=== PATIENT | female | born 1960 | race Caucasian/White ===

== ENCOUNTER → 2018-08-25 15:56 | Outpatient (REF) | payer OTHER, SELFPAY ==
[2018-08-25 19:43] LABS: Basophils # 0.1 K/mm3 (0-0.2); Basophils % 0.7 % (0.1-2.0); Eosinophils # 0.4 K/mm3 (0.0-0.4); Eosinophils % 4.2 % (0.1-12.0); Hematocrit 42.7 % (37.0-47.0); Lymphocytes # 2.7 K/mm3 (0.7-4.5); Mean Corpuscular HGB Conc 32.8 g/dL (31.8-35.4); Mean Corpuscular Hemoglobin 31.1 pg (27.0-31.2); Mean Corpuscular Volume 94.8 fl (81-99); Mean Platelet Volume 8.6 fl (7.4-10.4); Monocytes # 0.4 K/mm3 (0.1-1.0); Monocytes % 4.4 % (1.7-9.3); Neutrophils % 58.7 % (37.0-80.0); Platelet Count 273 K/mm3 (142-424); Red Cell Distribution Width 12.7 % (11.5-17.5); White Blood Count 8.5 K/mm3 (4.8-10.8)
[2018-08-25 20:09] LABS: Alanine Aminotransferase 30 U/L (12-78); Albumin Level 3.7 gm/dL (3.4-5.0); Alkaline Phosphatase 123 U/L (46-116); Anion Gap 9.8 mEq/L (5-15); Aspartate Amino Transferase 19 U/L (15-37); Bilirubin,Total 0.2 mg/dL (0.2-1.0); Blood Urea Nitrogen 9 mg/dL (7-18); Calcium 8.9 mg/dL (8.5-10.1); Carbon Dioxide 32 mmol/L (21.0-32.0); Chloride 104 mmol/L (98-107); Chol/HDL Ratio 8.9 (1-3.5); Cholesterol 303 mg/dL (140-200); Estimated Glomerular Filt Rate 87 ml/min (>60); GFR (African American) 105 ML/MIN (>60); Globulin 3.7 gm/dl (1.3-3.2); Glucose 106 mg/dL (74-106); HDL Cholesterol 34 mg/dL (29-89); Potassium 4.8 mmoL/L (3.5-5.1); Sodium 141 mmol/L (136-145); T4 (Thyroxine) 8.2 ug/dl (4.7-13.3); Thyroid Stimulating Hormone 1.72 uIU/ml (0.358-3.740); Total Protein,Serum 7.4 gm/dL (6.4-8.2)
[2018-08-25 20:10] LABS: Triglycerides 1050 mg/dL (30-200)
[2018-08-27 10:15] LABS: Vitamin D 25 Hydroxy 20.3 ng/mL (30.0-100.0)
== END ==
LOC: LAB 15:56
PROVIDERS: Visit Provider Physician Assistant
DX: R63.5 Abnormal weight gain (principal); R03.0 Elevated blood-pressure reading, without diagnosis of hypertension; F41.8 Other specified anxiety disorders; E55.9 Vitamin D deficiency, unspecified
CPT/HCPCS: 80053; 80061; 82652; 84436; 84443; 85025

== ENCOUNTER → 2020-05-31 14:21 | Outpatient (CLI) | payer OTHER, SELFPAY ==
[2020-05-31 14:45] LABS: C-Reactive Protein 8.5 mg/L (0-4)
[2020-05-31 15:10] LABS: Erythrocyte Sedimentation Rate 46 mm/hr (0-30)
== END ==
PROVIDERS: Visit Provider Physician Assistant
DX: M25.512 Pain in left shoulder (principal); R60.0 Localized edema
CPT/HCPCS: 85651; 86140

== ENCOUNTER → 2020-06-09 15:06 | Outpatient (CLI) | payer OTHER, SELFPAY ==
[2020-06-11 09:38] LABS: RA Latex Turbid. >650.0 IU/mL (0.0-13.9)
[2020-06-12 13:11] LABS: Anti-Centromere B Antibodies <0.2 AI (0.0-0.9); Anti-Jo-1 <0.2 AI (0.0-0.9); Anti-Smith Antibody <0.2 AI (0.0-0.9); Antichromatin Antibodies <0.2 AI (0.0-0.9); Antiscleroderma-70 Antibodies <0.2 AI (0.0-0.9); RNP Antibodies <0.2 AI (0.0-0.9); Sjogren's Anti-SS-A <0.2 AI (0.0-0.9); Sjogren's Anti-SS-B <0.2 AI (0.0-0.9)
[2020-06-12 14:39] LABS: Anti-DNA (DS) Ab Qn <1 IU/mL (0-9)
[2020-06-14 08:35] LABS: Anti-Cyclic Citrullinated Pept 57 units (0-19)
== END ==
PROVIDERS: Visit Provider Physician Assistant
DX: M25.50 Pain in unspecified joint (principal)
CPT/HCPCS: 86200; 86225; 86235; 86431

== ENCOUNTER 2021-02-11 04:43 | Emergency (ER) | payer OTHER, SELFPAY ==
[2021-02-11 04:54] VITALS: BP 174/85; PULSE 94; RESP 20; TEMP 37.2; O2SAT 96; BMI 28.3
--- NOTE | 2021-02-11 05:00 | CT_ITS ---
PROCEDURE: CT ABDOMEN PELVIS W CON CLINICAL INDICATION: Abdominal pain Abdominal pain with nausea and vomiting and diarrhea COMPARISON: CT ABDPELW/O CT ABD PELVIS W/O CONTRAST from 01/19/2017 TECHNIQUE: IV Contrast: 75ML Isovue 370 Oral Contrast None Axial images obtained with sagittal and coronal reformats. All CT scans at the facility use one or more dose reduction, viz: automated exposure control, ma/kV adjustment per patient size (including targeted exams where dose is matched to indication, i.e. head), or iterative reconstruction technique. FINDINGS: LOWER THORAX: There is a 6 mm subpleural cavitation in the right lower lobe posteriorly. Coronary artery calcification noted. ABDOMEN & PELVIS: Liver has an unremarkable appearance. There is a small gallstone. The spleen, adrenal glands, and pancreas have an unremarkable appearance. There are few small periportal lymph nodes some of which contain punctate calcification. Unremarkable appearing kidneys. There is mild nonspecific gastric wall thickening possibly due to nondistention. There is mild dilatation of the cecum which is fluid-filled. The more distal colon is collapsed. The colonic margin at the cecum and proximal ascending colon is somewhat indistinct. Multiple unopacified bowel loops in the abdomen or pelvis which could obscure or mimic pathology. If symptoms persist, consider repeat exam with IV and oral contrast.. The colonic diverticulosis is noted without evidence of diverticulitis. Small bowel gas pattern is nonspecific with nondistended fluid-filled loops of small bowel. No intestinal obstruction or free air. The appendix is not clearly delineated. No acute bony findings. IMPRESSION: 1. Cholelithiasis. 2. Small cavitating lesion right lower lobe posteriorly. Consider 3 month follow-up to confirm stability. 3. Mildly dilated fluid-filled cecum with indistinct colonic margin of the cecum and ascending colon raising the possibility of colonic obstruction due to colitis or tumor or early cecal volvulus. Repeat exam with both IV and oral contrast may provide further evaluation. Dictated by: Cash Heredia MD 02/11/2021 09:17 Cash Heredia MD in [place] 02/11/2021 09:17
[2021-02-11 05:12] LABS: Basophils % 0.3 % (0.1-2.0); Eosinophils # 0.2 K/mm3 (0.0-0.4); Eosinophils % 1.6 % (0.1-12.0); Hematocrit 45.6 % (37.0-47.0); Hemoglobin 14.4 g/dL (12.2-16.2); Lymphocytes # 0.6 K/mm3 (0.7-4.5); Lymphocytes % 5.2 % (10-50); Mean Corpuscular HGB Conc 31.7 g/dL (31.8-35.4); Mean Corpuscular Hemoglobin 29.7 pg (27.0-31.2); Mean Corpuscular Volume 93.7 fl (81-99); Mean Platelet Volume 9.7 fl (7.4-10.4); Monocytes # 0.3 K/mm3 (0.1-1.0); Monocytes % 2.7 % (1.7-9.3); Neutrophils # 10.6 K/mm3 (1.8-7.8); Neutrophils % 90.2 % (37.0-80.0); Platelet Count 188 K/mm3 (142-424); Red Blood Count 4.87 M/mm3 (4.20-5.40); Red Cell Distribution Width 13.2 % (11.5-17.5); White Blood Count 11.7 K/mm3 (4.8-10.8)
[2021-02-11 05:19] LABS: MANUAL DIFFERENTIAL MANUAL DIFFERENTIAL (MANUAL DIFF)
[2021-02-11 05:28] LABS: Alanine Aminotransferase 23 U/L (12-78); Albumin Level 4.5 g/dl (3.5-5.0); Albumin/Globulin Ratio 1.3 (1.1-1.8); Alkaline Phosphatase 126 U/L (38-126); Amylase 47 U/L (30-110); Anion Gap 12.2 mEq/L (5-15); Aspartate Amino Transferase 34 U/L (14-36); Bilirubin,Total 0.6 mg/dl (0.2-1.3); Blood Urea Nitrogen 19 mg/dl (7-17); Calcium 9.4 mg/dl (8.4-10.2); Carbon Dioxide 27 mmol/L (22.0-30.0); Chloride 105 mmol/L (98-107); Creatinine Clearance Estimated 100 mL/min (50-200); Estimated Glomerular Filt Rate 86 ml/min (>60); GFR (African American) 104 ML/MIN (>60); Globulin 3.5 g/dL (1.3-3.2); Glucose 243 mg/dl (74-100); Lipase 33 U/L (23-300); Potassium 4.2 mmoL/L (3.5-5.1); Sodium 140 mmol/L (136-145)
[2021-02-11 05:48] LABS: Procalcitonin 0.063 ng/mL (0.0-2.0); Troponin I < 0.01 ng/ml (0.00-0.034)
[2021-02-11 06:07] LABS: Eosinophils % 1 % (0-3); Hypochromasia 1+; Lymphocytes % 3 % (10-50); Monocytes % 1 % (2-9); Neutrophils % 90 % (42-76); Platelet Estimate Normal; Total Cells Counted 100
[2021-02-11 06:11] LABS: Erythrocyte Sedimentation Rate 20 mm/hr (0-30)
[2021-02-11 06:17] LABS: Adenovirus F 40/41, stool Not Detected (NotDetected); Appearance,Urine CLEAR (Clear); Astrovirus Not Detected (NotDetected); Bilirubin,Urine Negative (Negative); Blood, Urine TRACE-L (Negative); Campylobacter Not Detected (NotDetected); Clostridium Difficile A/B, PCR Not Detected (NotDetected); Color,Urine YELLOW (Yellow); Cryptosporidium Not Detected (NotDetected); Cyclospora Cayetanesis Not Detected (NotDetected); Entamoeba histolytica Not Detected (NotDetected); Enteroaggregative E coli Not Detected (NotDetected); Enteropathogenic E coli Not Detected (NotDetected); Enterotoxigenic E coli Not Detected (NotDetected); Giardia lamblia Not Detected (NotDetected); Glucose,Urine (UA) Negative (Negative); Ketones,Urine Negative (Negative); Leukocyte Esterase,Urine Negative (Negative); Microscopic, Urine URINE MICROSCOPIC (MICROSCOPIC); Nitrate,Urine Negative (Negative); PH,Urine 5.5 (5.0-8.5); Plesimonas Shigalloides, PCR Not Detected (NotDetected); Protein,Urine Negative (Negative); Rotavirus A Not Detected (NotDetected); Salmonella, PCR Not Detected (NotDetected); Sapovirus Not Detected (NotDetected); Shiga-like toxin E coli Not Detected (NotDetected); Shigella Enterovasive E coli Not Detected (NotDetected); Specific Gravity, Urine 1.015 (1.005-1.030); Urobilinogen,Urine 0.2 EU/dl (0.2); Vibrio Cholerae Not Detected (NotDetected); Vibrio, PCR Not Detected (NotDetected); Yersinia Entercolitica, PCR Not Detected (NotDetected)
[2021-02-11 06:27] LABS: WBC,Urine Occasional #/hpf (0-3)
[2021-02-11 06:28] LABS: Squamous Epithelial Cell,Urine Occasional #/hpf (0-5)
[2021-02-11 07:01] VITALS: BP 129/64; PULSE 88; RESP 17; O2SAT 93
--- NOTE | 2021-02-11 07:02 | HMH.EDNVD ---
ED Disposition Clinical Impression: Colitis Disposition: Home, Self-Care Condition on Discharge: Good Instructions: DI for Diarrhea and Traveler's Diarrhea -- Adult Additional Instructions: fluids and recheck with pcp and return to ed if needed Prescriptions: metroNIDAZOLE [metroNIDAZOLE 500mg Tablet] 500 mg PO TID #30 tab Transmission Status: Pending to [facility] Azithromycin [Zithromax 250mg tab] 250 mg PO DIRECTED #6 tab Transmission Status: Pending to [facility] ondansetron HCL [Zofran 4mg Tab] 4 mg PO TID #30 tab Transmission Status: Pending to [facility] Referrals: Marta Schmitz PA [Primary Care Provider] - - Critical Care Critical Care Time: No Attestation: On 02/11/21, the high probability of a clinically significant, sudden or life threatening deterioration of the following system(s) required my full and direct attention, intervention and personal management. The time I documented below is in addition to time spent performing reported procedures but includes the following listed in this critical care notation. Medical Decision Making - Medical Records Medical records reviewed: Yes: I reviewed the patient's medical records. - Chris Inquiry Pt receiving controlled substance: No Vital Signs: 02/11/21 04:54 Temperature 98.9 F Temperature Source Oral Pulse Rate [Right Brachial] 94 H Respiratory Rate 20 Blood Pressure [Right Arm] 174/85 H Blood Pressure Mean [Right Arm] 114 Blood Pressure Source [Right Arm] Automatic Cuff 02 Sat by Pulse Oximetry 96 Oxygen Delivery Method Room Air - Lab Data Lab results reviewed: Yes: I reviewed the patient's lab results. Lab Results 02/11/21 05:00: WBC 11.7 H, RBC 4.87, Hgb 14.4, Hct 45.6, MCV 93.7, MCH 29.7, MCHC 31.7 L, RDW 13.2, Plt Count 188, MPV 9.7, Neut % (Auto) 90.2 H, Lymph % (Auto) 5.2 L, [place] % (Auto) 2.7, Eos % (Auto) 1.6, Baso % (Auto) 0.3, Neut # (Auto) 10.6 H, Lymph # (Auto) 0.6 L, [place] # (Auto) 0.3, Eos # (Auto) 0.2, Baso # (Auto) 0.0, Total Counted 100, Neutrophils % (Manual) 90 H, Band Neutrophils % 5.0, Lymphocytes % (Manual) 3 L, Monocytes % (Manual) 1 L, Eosinophils % (Manual) 1, Platelet Estimate Normal, Hypochromasia 1+, ESR 20 02/11/21 05:00: Sodium 140, Potassium 4.2, Chloride 105, Carbon Dioxide 27, Anion Gap 12.2, BUN 19 H, Creatinine 0.70, Estimated Creat Clear 100, Estimated GFR 86, Est GFR ( Amer) 104, Glucose 243 H, Calcium 9.4, Total Bilirubin 0.6, AST 34, ALT 23, Alkaline Phosphatase 126, Troponin I < 0.01, C-Reactive Protein 17.0 H, Total Protein 8.0, Albumin 4.5, Globulin 3.5 H, Albumin/Globulin Ratio 1.3, Amylase 47, Lipase 33 02/11/21 05:00: Procalcitonin 0.063 02/11/21 06:07: Urine Color Yellow, Urine Appearance Clear, Urine pH 5.5, Ur Specific [place] 1.015, Urine Protein Negative, Urine Glucose (UA) Negative, Urine Ketones Negative, Urine Blood Trace-l, Urine Nitrate Negative, Urine Bilirubin Negative, Urine Urobilinogen 0.2, Ur Leukocyte Esterase Negative, Urine RBC None, Urine WBC Occasional, Ur Squamous Epith Cells Occasional, Urine Bacteria None Result diagrams: 02/11/21 05:00 02/11/21 05:00 Orders (Tests/Meds): ED MEDICATIONS Generic Name Dose Route Start Last Admin Trade Name Freq PRN Reason Stop Dose Admin Sodium Chloride 1,000 mls @ 999 mls/hr 02/11/21 05:15 02/11/21 05:04 Sod Chlor 0.9% 1000ml Bag IV 02/11/21 06:15 999 mls/hr .Q1H1M ISAEL Administration Sodium Chloride 1,000 mls @ 999 mls/hr 02/11/21 06:15 02/11/21 06:06 Sod Chlor 0.9% 1000ml Bag IV 02/11/21 07:15 999 mls/hr .Q1H1M ISAEL Administration Discontinued Medications Generic Name Dose Route Start Last Admin Trade Name Freq PRN Reason Stop Dose Admin Iopamidol 75 ml 02/11/21 06:01 02/11/21 06:02 Iopamidol-370 (76%);100ml Bottle IV 02/11/21 06:02 75 ml ONCE ONE Administration Ondansetron HCl 4 mg 02/11/21 05:03 02/11/21 05:04 Ondansetron 4mg/2ml Via
[2021-02-11 07:47] VITALS: BP 126/60; PULSE 80; RESP 19; TEMP 37.2; O2SAT 98
[2021-02-11 08:22] LABS: Norovirus Detected (NotDetected)
--- NOTE | 2021-02-11 08:58 | PC.NURSE ---
Called pt with results of stool panel.
== END 2021-02-11 07:49 | disposition home or self-care (01) ==
PROVIDERS: Emergency Provider Emergency Medicine; PCP Physician Assistant
DX: K52.9 Noninfective gastroenteritis and colitis, unspecified (principal); M06.9 Rheumatoid arthritis, unspecified; R01.1 Cardiac murmur, unspecified; E78.5 Hyperlipidemia, unspecified; F17.210 Nicotine dependence, cigarettes, uncomplicated; Z79.899 Other long term (current) drug therapy
CPT/HCPCS: 74177; 80053; 81001; 82150; 83690; 84145; 84484; 85007; 85025; 85651; 86140; 87507; 96365; 96366; 96375; 99283; J2405; Q9967

== ENCOUNTER 2021-07-05 17:19 | Emergency (ER) | payer OTHER, SELFPAY ==
[2021-07-05 20:19] VITALS: BP 145/73; PULSE 81; RESP 18; TEMP 36.8; O2SAT 97; BMI 25.7
--- NOTE | 2021-07-05 20:27 | HMH.EDUTC ---
[facility] [place] Disposition Clinical Impression: Sciatica without back pain Qualifiers: Laterality: left Qualified Code(s): M54.32 - Sciatica, left side Disposition: Home, Self-Care Condition on Discharge: Good Instructions: Sciatica, DI for Sciatica, Methocarbamol Additional Instructions: *Ibuprofen as directed on package with meal as needed for pain/inflammation if your doctor has told you that you can take it *Not additional anti-inflammatory like motrin, aleve, advil with the above amount of ibuprofen. You can still take Tylenol every 4 hours as needed if you need something else for pain *Ice 20 minutes every 2 hours for the first 48 hours after the initial injury followed by moist heat every 20 minutes 3-4 times a day to affected area *Muscle relaxer as prescribed as needed for muscle spasms but remember, it WILL cause drowsiness You cannot take it and drive, operate machinery or care for small children. *Keep this area active, no movement leads to more stiffness, However take it easy and avoid heavy lifting pushing or pulling *Follow up with you family doctor if no improvement for further treatment Prescriptions: methocarbamoL [Methocarbamol] 500 mg PO BID PRN #10 tab PRN Reason: Muscle Spasm Transmission Status: Received by [facility] Referrals: Marta Schmitz PA [Primary Care Provider] - As needed Forms: Work/School Release Time of Disposition: 20:55 Medical Decision Making - Chris Inquiry Pt receiving controlled substance: No Chris was queried for this patient: No Vital Signs: 07/05/21 20:19 Temperature 98.3 F Temperature Source Oral Pulse Rate [Right] 81 Respiratory Rate 18 Blood Pressure [Right Arm] 145/73 H Blood Pressure Mean [Right Arm] 97 02 Sat by Pulse Oximetry 97 Oxygen Delivery Method Room Air Orders (Tests/Meds): ED MEDICATIONS Discontinued Medications Generic Name Dose Route Start Last Admin Trade Name Freq PRN Reason Stop Dose Admin Methylprednisolone Sodium Succinate 125 mg 07/05/21 20:35 07/05/21 20:39 Methylprednisolone Sod Succ 125mg Vial IM 07/05/21 20:36 125 mg ONCE ONE Administration Medical Decision Narrative: Medication discussed with pharmacy [facility] [place] HPI - General Stated complaint: Pain L leg Time Seen by Provider: 07/05/21 20:27 Mode of Arrival: Family Vehicle Source of Information: Patient Limitations: No Limitations Description of Symptoms (Recalled from Triage Doc. by RN): Patient left hip pain this AM that radiates down her left leg. Patient denies any injury. HEENT Symptoms (Recalled from RN notes): No Resp Symptoms (Recalled from RN notes): No Skin Symptoms (Recalled from RN notes): No MS Symptoms (Recalled from RN notes): Yes Functional Status (Recalled from RN notes): na - History of Present Illness Provider Complaint: Patient state that she woke up this morning with pain in her left buttock area that is radiating down leg State that feels like it is a toothache like pain State that pain in buttock area is worse when she sits or lays on that side Denies falling and denies known injury - Related Data Previous Rx's Medication Instructions Recorded ondansetron HCL [Zofran 4mg Tab] 4 mg PO TID #30 tab 02/11/21 folic acid 400 mcg tablet 0.4 mg PO DAILY #90 tab 05/21/21 leflunomide 10 mg tablet 10 mg PO DAILY #90 tab 05/21/21 meloxicam 7.5 mg tablet 7.5 mg PO DAILY #30 tab 05/21/21 methylprednisolone 4 mg tablets in 4 mg PO PER PKG DIR 6 Days #21 tab 05/21/21 a dose pack methocarbamoL [Methocarbamol] 500 mg PO BID PRN #10 tab 07/05/21 Allergies Allergy/AdvReac Type Severity Reaction Status Date / Time No Known Allergies Allergy Verified 05/21/21 09:55 - Worker's Comp Is this a Worker's Comp case?: No Is this an H Worker's Comp?: No Is this a [place] Worker's Comp?: No [facility] History - Hepatitis A Screen Drug use history?: No High risk sexual behaviors?: No History of sexually transmitted infection?: No Cur
[2021-07-05 20:59] VITALS: BP 123/74; PULSE 78; RESP 16; TEMP 36.6; O2SAT 98
== END 2021-07-05 21:01 | disposition home or self-care (01) ==
PROVIDERS: Emergency Provider Nurse Practitioner; PCP Physician Assistant
DX: M54.32 Sciatica, left side (principal); E78.5 Hyperlipidemia, unspecified; F33.1 Major depressive disorder, recurrent, moderate; F17.210 Nicotine dependence, cigarettes, uncomplicated; Z79.899 Other long term (current) drug therapy
CPT/HCPCS: 96372; 99202; G0463

== ENCOUNTER 2021-10-07 23:08 | Emergency (ER) | payer OTHER, SELFPAY ==
[2021-10-07 23:10] VITALS: BP 171/90; PULSE 89; RESP 18; TEMP 36.9; O2SAT 98; BMI 25.8
--- NOTE | 2021-10-07 23:11 | ECG_ITS ---
APPROVED REPORT Exam: Resting ECG HR:87 bpm ECG Measurements Heart Rate 87 AXES CO 136 P 72 QRSd 66 QRS 73 QT 364 T 79 QTc 438 Conclusion Normal sinus rhythm Normal ECG Electronically signed by : Reginaldo Ramos MD 10/08/2021 14:20:44
[2021-10-07 23:27] VITALS: BMI 28.3
--- NOTE | 2021-10-07 23:28 | XR_ITS ---
PROCEDURE INFORMATION: Exam: XR Left Shoulder Exam date and time: 10/07/2021 11:28 PM Age: 61 years old Clinical indication: Pain; Shoulder; Left; Additional info: Shoulder pain left no trauma TECHNIQUE: Imaging protocol: XR Left shoulder. Views: 2 or more views. COMPARISON: CR CXR CHEST(2 VIEWS-NOT PORTABLE) 02/16/2017 6:21 PM FINDINGS: Bones/joints: Normal. Soft tissues: Normal. IMPRESSION: No acute findings.
--- NOTE | 2021-10-07 23:28 | CT_ITS ---
PROCEDURE INFORMATION: Exam: CT Thoracic Spine Without Contrast Exam date and time: 10/07/2021 11:28 PM Age: 61 years old Clinical indication: Pain in thoracic spine; With radiculopathy; Patient HX: Neck and upper back pain and left shoulder pain no trauma; Additional info: Neck pain TECHNIQUE: Imaging protocol: Computed tomography images of the thoracic spine without contrast. Radiation optimization: All CT scans at this facility use at least one of these dose optimization techniques: automated exposure control; mA and/or kV adjustment per patient size (includes targeted exams where dose is matched to clinical indication); or iterative reconstruction. COMPARISON: CT CERVICAL SPINE WO CON 10/07/2021 11:56 PM FINDINGS: Vertebrae: No acute fracture. Normal alignment. Heart: Cardiomegaly with coronary artery and valvular calcifications. Lymph nodes: Calcified lymph nodes in the mediastinum and prashanth may be due to prior granulomatous disease or treated lymphoma. IMPRESSION: No acute spinal abnormality. Cardiomegaly and evidence of prior granulomatous disease.
--- NOTE | 2021-10-07 23:28 | CT_ITS ---
PROCEDURE INFORMATION: Exam: CT Cervical Spine Without Contrast Exam date and time: 10/07/2021 11:28 PM Age: 61 years old Clinical indication: Patient HX: Neck pain and left shoulder pain no known trauma TECHNIQUE: Imaging protocol: Computed tomography images of the cervical spine without contrast. Radiation optimization: All CT scans at this facility use at least one of these dose optimization techniques: automated exposure control; mA and/or kV adjustment per patient size (includes targeted exams where dose is matched to clinical indication); or iterative reconstruction. COMPARISON: US ARTERIAL CAROTID 02/26/2017 9:46 AM FINDINGS: Vertebrae: Normal alignment. No acute fractures. Soft tissues: Unremarkable. Lungs: Lung apices are normal. Other findings: There are mild degenerative changes present with uncovertebral joint hypertrophy causing moderate to severe left neural foraminal narrowing C4-C5 and C5-C6. IMPRESSION: Degenerative changes causing left neural foraminal narrowing at C4-C5 and C5-C6.
[2021-10-07 23:30] VITALS: BP 145/73; PULSE 85; O2SAT 97
[2021-10-07 23:38] LABS: Basophils # 0.1 K/mm3 (0-0.2); Basophils % 1.1 % (0.1-2.0); Eosinophils # 0.4 K/mm3 (0.0-0.4); Eosinophils % 5.5 % (0.1-12.0); Hematocrit 37.6 % (37.0-47.0); Lymphocytes # 2.3 K/mm3 (0.7-4.5); Lymphocytes % 30.2 % (10-50); Mean Corpuscular HGB Conc 34.6 g/dL (31.8-35.4); Mean Corpuscular Hemoglobin 32.1 pg (27.0-31.2); Mean Corpuscular Volume 92.8 fl (81-99); Mean Platelet Volume 8.8 fl (7.4-10.4); Monocytes # 0.3 K/mm3 (0.1-1.0); Monocytes % 4.4 % (1.7-9.3); Neutrophils # 4.4 K/mm3 (1.8-7.8); Neutrophils % 58.9 % (37.0-80.0); Platelet Count 257 K/mm3 (142-424); Red Blood Count 4.05 M/mm3 (4.20-5.40); White Blood Count 7.4 K/mm3 (4.8-10.8)
[2021-10-07 23:48] LABS: Chloride 102 mmol/L (98-107); Potassium 3.9 mmoL/L (3.5-5.1); Sodium 137 mmol/L (136-145)
[2021-10-07 23:50] LABS: Alanine Aminotransferase 37 U/L (12-78); Blood Urea Nitrogen 16 mg/dl (7-17); Creatinine Clearance Estimated 116 mL/min (50-200); Estimated Glomerular Filt Rate 102 ml/min (>60); GFR (African American) 124 ML/MIN (>60)
[2021-10-07 23:51] LABS: Albumin/Globulin Ratio 1.3 (1.1-1.8); Alkaline Phosphatase 171 U/L (38-126); Anion Gap 7.9 mEq/L (5-15); Aspartate Amino Transferase 47 U/L (14-36); Bilirubin,Total 0.2 mg/dl (0.2-1.3); Calcium 9.1 mg/dl (8.4-10.2); Carbon Dioxide 31 mmol/L (22.0-30.0); Glucose 269 mg/dl (74-100)
[2021-10-07 23:57] LABS: C-Reactive Protein 35.6 mg/L (0-4)
[2021-10-07 23:59] LABS: Troponin I < 0.01 ng/ml (0.00-0.034)
[2021-10-08 00:02] LABS: Procalcitonin 0.053 ng/mL (0.0-2.0)
[2021-10-08 00:05] LABS: Erythrocyte Sedimentation Rate 81 mm/hr (0-30)
[2021-10-08 00:30] VITALS: BP 127/88; PULSE 74; O2SAT 96
[2021-10-08 00:58] LABS: Hemoglobin A1C 8.9 % (4.0-6.0)
[2021-10-08 01:00] VITALS: BP 155/76; PULSE 70; O2SAT 95
[2021-10-08 01:30] VITALS: BP 143/77; PULSE 73; O2SAT 96
[2021-10-08 02:01] VITALS: BP 131/83; PULSE 69; O2SAT 99
--- NOTE | 2021-10-08 02:28 | HMH.EDGENADL ---
ED Disposition Clinical Impression: Cervical disc disease, Coronary artery calcification seen on CAT scan, Elevated hemoglobin A1c, Tobacco use, Overweight (BMI 25.0-29.9) Shoulder pain, left Qualifiers: Chronicity: acute Qualified Code(s): M25.512 - Pain in left shoulder Rheumatoid arthritis Qualifiers: Rheumatoid arthritis location: unspecified site Rheumatoid factor presence: unspecified presence Qualified Code(s): M06.9 - Rheumatoid arthritis, unspecified Disposition: Home, Self-Care Condition on Discharge: Fair Instructions: DI for Acute Pain -- Adult Additional Instructions: see pcp today Referrals: Marta Schmitz PA [Primary Care Provider] - - Critical Care Critical Care Time: No Attestation: On 10/07/21, the high probability of a clinically significant, sudden or life threatening deterioration of the following system(s) required my full and direct attention, intervention and personal management. The time I documented below is in addition to time spent performing reported procedures but includes the following listed in this critical care notation. Medical Decision Making - Medical Records Medical records reviewed: Yes: I reviewed the patient's medical records. - Chris Inquiry Pt receiving controlled substance: No Vital Signs: 10/07/21 23:10 10/07/21 23:30 10/08/21 00:30 Temperature 98.4 F Temperature Source Oral Pulse Rate 85 74 Pulse Rate [Right] 89 Respiratory Rate 18 Blood Pressure 145/73 H 127/88 Blood Pressure [Right Arm] 171/90 H Blood Pressure Mean 97 103 Blood Pressure Mean [Right Arm] 117 02 Sat by Pulse Oximetry 98 97 96 Oxygen Delivery Method Room Air Room Air Room Air 10/08/21 01:00 10/08/21 01:30 10/08/21 02:01 Temperature Temperature Source Pulse Rate 70 73 69 Pulse Rate [Right] Respiratory Rate Blood Pressure 155/76 H 143/77 H 131/83 Blood Pressure [Right Arm] Blood Pressure Mean 94 88 94 Blood Pressure Mean [Right Arm] 02 Sat by Pulse Oximetry 95 96 99 Oxygen Delivery Method Room Air Room Air Room Air - Lab Data Lab results reviewed: Yes: I reviewed the patient's lab results. Lab Results 10/07/21 23:27: WBC 7.4, RBC 4.05 L, Hgb 13.0, Hct 37.6, MCV 92.8, MCH 32.1 H, MCHC 34.6, RDW 14.0, Plt Count 257, MPV 8.8, Neut % (Auto) 58.9, Lymph % (Auto) 30.2, [place] % (Auto) 4.4, Eos % (Auto) 5.5, Baso % (Auto) 1.1, Neut # (Auto) 4.4, Lymph # (Auto) 2.3, [place] # (Auto) 0.3, Eos # (Auto) 0.4, Baso # (Auto) 0.1, ESR 81 H 10/07/21 23:27: Sodium 137, Potassium 3.9, Chloride 102, Carbon Dioxide 31 H, Anion Gap 7.9, BUN 16, Creatinine 0.60, Estimated Creat Clear 116, Estimated GFR 102, Est GFR ( Amer) 124, Glucose 269 H, Calcium 9.1, Total Bilirubin 0.2, AST 47 H, ALT 37, Alkaline Phosphatase 171 H, C-Reactive Protein 35.6 H, Total Protein 7.0, Albumin 4.0, Globulin 3.0, Albumin/Globulin Ratio 1.3, Procalcitonin 0.053 10/07/21 23:27: Troponin I < 0.01 10/07/21 23:27: Hemoglobin A1c 8.9 H Result diagrams: 10/07/21 23:27 10/07/21 23:27 Orders (Tests/Meds): ED MEDICATIONS Generic Name Dose Route Start Last Admin Trade Name Freq PRN Reason Stop Dose Admin Sodium Chloride 1,000 mls @ 999 mls/hr 10/07/21 23:45 10/07/21 23:45 Sod Chlor 0.9% 1000ml Bag IV 10/08/21 00:45 999 mls/hr .Q1H1M ISAEL Administration Discontinued Medications Generic Name Dose Route Start Last Admin Trade Name Freq PRN Reason Stop Dose Admin Acetaminophen/Codeine Phosphate 1 eliseo 10/08/21 02:50 10/08/21 02:51 Acetaminophen 300mg W/Codeine 30mg Take Home Pack (6) PO 10/08/21 02:51 1 eliseo ONCE ONE Administration Ketorolac Tromethamine 30 mg 10/07/21 23:34 10/07/21 23:45 Ketorolac 30mg/Ml Vial IV 10/07/21 23:35 30 mg ONCE ONE Administration Methylprednisolone Sodium Succinate 125 mg 10/07/21 23:34 10/07/21 23:45 Methylprednisolone Sod Succ 125mg Vial IV 10/07/21 23:35 125 mg ONCE ONE Administration ORDERS
--- NOTE | 2021-10-08 02:37 | XR_ITS ---
PROCEDURE INFORMATION: Exam: XR Chest Exam date and time: 10/08/2021 2:37 AM Age: 61 years old Clinical indication: Other: Changes seen on CT t spine; Additional info: Changes on tspine CT TECHNIQUE: Imaging protocol: XR of the chest. Views: 2 views. COMPARISON: CR CXR CHEST(2 VIEWS-NOT PORTABLE) 02/16/2017 6:21 PM FINDINGS: Lungs: Unremarkable. No consolidation. Pleural spaces: Unremarkable. No pleural effusion. No pneumothorax. Heart/Mediastinum: Unremarkable. No cardiomegaly. Bones/joints: Unremarkable. IMPRESSION: No acute findings.
[2021-10-08 03:01] LABS: Troponin I < 0.01 ng/ml (0.00-0.034)
[2021-10-08 03:05] VITALS: BP 131/83; PULSE 68; RESP 20; TEMP 36.7; O2SAT 98
== END 2021-10-08 03:26 | disposition home or self-care (01) ==
PROVIDERS: Emergency Provider Emergency Medicine; PCP Physician Assistant
DX: M50.33 Other cervical disc degeneration, cervicothoracic region (principal); M25.512 Pain in left shoulder; M06.9 Rheumatoid arthritis, unspecified; R01.1 Cardiac murmur, unspecified; E78.5 Hyperlipidemia, unspecified; F17.210 Nicotine dependence, cigarettes, uncomplicated
CPT/HCPCS: 71046; 72125; 72128; 73030; 80053; 83036; 84145; 84484; 85025; 85651; 86140; 93005; 96365; 96375; 99283

== ENCOUNTER → 2021-10-24 08:49 | Outpatient (CLI) | payer OTHER, SELFPAY | PROVIDERS: PCP Physician Assistant; Visit Provider Nurse Practitioner | DX: Z20.822 Contact with and (suspected) exposure to COVID-19 (principal) | CPT/HCPCS: C9803; U0003; U0005 ==

== ENCOUNTER → 2021-10-26 14:18 | Outpatient (CLI) | payer OTHER, SELFPAY ==
--- NOTE | 2021-10-26 14:20 | MR_ITS ---
PROCEDURE INFORMATION: Exam: MR Cervical Spine Without Contrast Exam date and time: 10/26/2021 2:20 PM Age: 61 years old Clinical indication: Neck pain; Additional info: Abnl CT cervical spine, lue radiculopathy. Shoulder pain [id number]. Left neck pain, radiate to back. No surgery. Prior CT 10-07-21 TECHNIQUE: Imaging protocol: Multiplanar magnetic resonance images of the cervical spine without contrast. COMPARISON: CT CERVICAL SPINE WO CON 10/07/2021 11:56 PM FINDINGS: Examination is motion limited. Grade 1 anterolisthesis of C2 on C3. Trace retrolisthesis of C4 on C5. Vertebral body heights are preserved. Multilevel disc desiccation disc space narrowing. Degenerative endplate signal. No evidence of discitis/osteomyelitis. No pathologic cord signal or cord expansion. No epidural fluid collection. C2-C3: No significant central or foraminal stenosis. C3-C4: Gmuj-zf-qsnwywdp disc osteophyte complex with uncinate spurring bilaterally greater on the left. There is mild central canal stenosis and dyoa-qv-jljloxiy left foraminal stenosis. C4-C5: Moderate disc osteophyte complex with bilateral uncinate spurring and facet joint arthropathy. There is moderate to severe central canal stenosis, moderate right foraminal stenosis and severe left foraminal stenosis. C5-C6: Psre-zt-iwqsqmtm disc osteophyte complex with bilateral uncinate spurring. There is mvex-sp-eqqabpqh central canal stenosis and moderate to severe bilateral foraminal stenosis. C6-C7: Moderate disc osteophyte complex with bilateral uncinate spurring. There is moderate central canal stenosis, moderate to severe right foraminal stenosis and severe left foraminal stenosis. C7-T1: No significant stenosis. IMPRESSION: 1. Motion limited examination. 2. Multilevel degenerative findings as above most prominently at C4-C5 where there is moderate to severe central canal stenosis, moderate right foraminal stenosis and severe left foraminal stenosis.
== END ==
PROVIDERS: PCP Physician Assistant; Visit Provider Physician Assistant
DX: M54.12 Radiculopathy, cervical region (principal); R93.7 Abnormal findings on diagnostic imaging of other parts of musculoskeletal system
CPT/HCPCS: 72141; 76376

== ENCOUNTER → 2021-10-29 10:44 | Outpatient (CLI) | payer OTHER, SELFPAY ==
--- NOTE | 2021-10-29 10:45 | CA_ITS ---
APPROVED REPORT Supervisor Functional Testing: CT Laterality: Bilateral Indications: left carotid bruit Risk Factors Hypertension: Hyperlipidemia Diabetes Smoking Doppler Spectral Velocity Analysis ECA (R) 143.00/ cm/s ECA (L) 134.00/ cm/s dICA (R) 141.40/51.40 cm/s dICA (L) 155.20/62.30 cm/s Angelica (R) 183.90/50.30 cm/s Angelica (L) 169.30/50.60 cm/s pICA (R) 118.20/30.80 cm/s pICA (L) 127.20/43.80 cm/s dCCA (R) 69.60/22.40 cm/s dCCA (L) 118.20/35.10 cm/s pCCA (R) 80.10/15.00 cm/s pCCA (L) 124.20/29.10 cm/s Vert (R) 73.30/ cm/s Vert (L) 20.70/ cm/s ICA/CCA 2.60 ICA/CCA 1.40 Findings Duplex evaluation demonstrates stenosis of the right proximal internal carotid artery in the range of 50-69%. Duplex evaluation demonstrates stenosis of the left proximal internal carotid artery in the range of 50-69%. Duplex evaluation demonstrates antegrade flow of the bilateral Vertebral Arteries. Tortuous vessels bilaterally, suggests further testing difficult exam. Cyst noted in right thyroid. Conclusion Duplex evaluation demonstrates stenosis of the right proximal internal carotid artery in the range of 50-69%. Duplex evaluation demonstrates stenosis of the left proximal internal carotid artery in the range of 50-69%. Duplex evaluation demonstrates antegrade flow of the bilateral Vertebral Arteries. Cyst noted in right thyroid. Electronically signed by : Cash Heredia MD 10/29/2021 16:13:26
== END ==
PROVIDERS: PCP Physician Assistant; Visit Provider Physician Assistant
DX: R09.89 Other specified symptoms and signs involving the circulatory and respiratory systems (principal)
CPT/HCPCS: 93880

== ENCOUNTER → 2021-11-05 09:24 | Outpatient (CLI) | payer OTHER, SELFPAY ==
[2021-11-05 10:37] LABS: Alanine Aminotransferase 24 U/L (12-78); Albumin Level 3.7 g/dl (3.5-5.0); Alkaline Phosphatase 136 U/L (38-126); Aspartate Amino Transferase 31 U/L (14-36); Bilirubin,Direct 0.1 mg/dl (0.0-0.4); Bilirubin,Indirect 0.3 mg/dL (0.0-0.9); Bilirubin,Total 0.4 mg/dl (0.2-1.3); Bilirubin,Unconjugated 0.3 mg/dL (0.0-1.1); Chol/HDL Ratio 4.8 (1-3.5); Cholesterol 168 mg/dl (140-200); HDL Cholesterol 35 mg/dl (40-60); Total Protein,Serum 6.6 g/dl (6.3-8.2); Triglycerides 223 mg/dl (30-150); VLDL Cholesterol 45 mg/dL (0-40)
[2021-11-05 10:48] LABS: Direct LDL Cholesterol 107.73 mg/dL (100-129)
== END ==
PROVIDERS: Visit Provider Urology
DX: I25.10 Atherosclerotic heart disease of native coronary artery without angina pectoris (principal); I10 Essential (primary) hypertension; E78.5 Hyperlipidemia, unspecified; R94.31 Abnormal electrocardiogram [ECG] [EKG]; Z72.0 Tobacco use
CPT/HCPCS: 36415; 80061; 80076

== ENCOUNTER → 2021-12-03 10:06 | Outpatient (POV) | payer OTHER, SELFPAY ==
[2021-12-03 10:46] VITALS: BP 176/82; PULSE 85; RESP 18; O2SAT 96; BMI 26.9
--- NOTE | 2021-12-03 10:48 | HMH.PMCON ---
Assessment and Plan (1) Cervical spinal stenosis Status: Acute Category: Medical Code(s): M48.02 - Spinal stenosis, cervical region (2) Foraminal stenosis of cervical region Status: Acute Category: Medical Code(s): M48.02 - Spinal stenosis, cervical region (3) Degenerative disc disease, cervical Status: Acute Category: Medical Code(s): M50.30 - Other cervical disc degeneration, unspecified cervical region - Assessment and plan all Dx Assessment and Plan for all problems:: Imaging PROCEDURE INFORMATION: Exam: MR Cervical Spine Without Contrast Exam date and time: 10/26/2021 2:20 PM Age: 61 years old Clinical indication: Neck pain; Additional info: Abnl CT cervical spine, lue radiculopathy. Shoulder pain x2wks. Left neck pain, radiate to back. No surgery. Prior CT 10-07-21 TECHNIQUE: Imaging protocol: Multiplanar magnetic resonance images of the cervical spine without contrast. COMPARISON: CT CERVICAL SPINE WO CON 10/07/2021 11:56 PM FINDINGS: Examination is motion limited. Grade 1 anterolisthesis of C2 on C3. Trace retrolisthesis of C4 on C5. Vertebral body heights are preserved. Multilevel disc desiccation disc space narrowing. Degenerative endplate signal. No evidence of discitis/osteomyelitis. No pathologic cord signal or cord expansion. No epidural fluid collection. C2-C3: No significant central or foraminal stenosis. C3-C4: Lssv-hw-yfpuzssq disc osteophyte complex with uncinate spurring bilaterally greater on the left. There is mild central canal stenosis and fvbh-lu-dpdilyio left foraminal stenosis. C4-C5: Moderate disc osteophyte complex with bilateral uncinate spurring and facet joint arthropathy. There is moderate to severe central canal stenosis, moderate right foraminal stenosis and severe left foraminal stenosis. C5-C6: Hrei-ly-nmhrpfyt disc osteophyte complex with bilateral uncinate spurring. There is rppu-qp-oupgjsjl central canal stenosis and moderate to severe bilateral foraminal stenosis. C6-C7: Moderate disc osteophyte complex with bilateral uncinate spurring. There is moderate central canal stenosis, moderate to severe right foraminal stenosis and severe left foraminal stenosis. C7-T1: No significant stenosis. IMPRESSION: 1. Motion limited examination. 2. Multilevel degenerative findings as above most prominently at C4-C5 where there is moderate to severe central canal stenosis, moderate right foraminal stenosis and severe left foraminal stenosis. Plan Based on the patient's MRI and presentation, patient will benefit from a cervica epidural steroid injection. Patient would like to hold off on any injection at this time. Patient says that she has an appointment with neurosurgery on December 11 and would like to see them first if there is something else that they can do for her. Patient is welcome to call our clinic to schedule a cervical epidural steroid injection risks and benefits of the procedure have been explained to the patient. I also discussed with the patient that we will not refill her oral pain medication. Patient has been instructed to contact the clinic with any concerns before the next appointment. Dr. Foreman has reviewed this note and agrees with this plan of care. This note was dictated using voice recognition software and make contain errors or omissions. HPI - Data of Consult Patient: new to practice Consult date: 12/03/21 Requesting Physician: Dolores Whitlock APRN - Consult Narrative Reason for consult: Neck pain History of present illness: Ms. Arnold is a 61 year old female who presents today as a new patient. Patient is referred by Marta Schmitz PA-C for acute on chronic neck pain. Patient says that her pain has been gradually getting worse for years but on October 07, 2021, her pain got so bad that she went to the ER. She vaughan
== END ==
PROVIDERS: Visit Provider Clinical Nurse Specialist Family Health
DX: M48.02 Spinal stenosis, cervical region (principal); M50.30 Other cervical disc degeneration, unspecified cervical region
CPT/HCPCS: 99202; G0463

== ENCOUNTER → 2021-12-03 15:29 | Outpatient (CLI) | payer OTHER, SELFPAY ==
[2021-12-03 17:08] LABS: Amphetamine/Metha Screen,Urine Negative ng/ml (<1000)
[2021-12-03 17:09] LABS: Barbiturates Screen,Urine Negative ng/ml (<200); Benzodiazepines Screen,Urine Negative ng/ml (<200)
[2021-12-03 17:10] LABS: Cannabinoid Screen,Urine Negative ng/ml (<50)
[2021-12-03 17:11] LABS: Cocaine Screen,Urine Negative ng/ml (<300); Methadone Screen,Urine Negative ng/ml (<300)
[2021-12-03 17:12] LABS: Opiate Screen,Urine Positive ng/ml (<300)
[2021-12-03 17:14] LABS: Phencyclidine Screen,Urine Negative ng/ml (<25)
== END ==
PROVIDERS: Visit Provider Physician Assistant
DX: Z79.899 Other long term (current) drug therapy (principal)
CPT/HCPCS: 80305

== ENCOUNTER 2021-12-15 19:22 | Emergency (ER) | payer OTHER, SELFPAY ==
[2021-12-15 19:25] VITALS: BP 200/99; PULSE 76; RESP 20; TEMP 36.8; O2SAT 97; BMI 26.7
[2021-12-15 19:44] LABS: Microscopic, Urine URINE MICROSCOPIC (MICROSCOPIC)
[2021-12-15 19:47] LABS: Appearance,Urine CLEAR (Clear); Bilirubin,Urine Negative (Negative); Blood, Urine Negative (Negative); Color,Urine DK YELLOW (Yellow); Glucose,Urine (UA) Negative (Negative); Ketones,Urine Negative (Negative); Leukocyte Esterase,Urine Negative (Negative); Nitrate,Urine Negative (Negative); PH,Urine 5.5 (5.0-8.5); Protein,Urine TRACE (Negative); Specific Gravity, Urine >= 1.030 (1.005-1.030)
[2021-12-15 20:00] VITALS: BP 144/68; PULSE 81; O2SAT 95
[2021-12-15 20:00] LABS: Bacteria,Urine Trace /lpf; Mucus,Urine 1+ /lpf; WBC,Urine Occasional #/hpf (0-3)
--- NOTE | 2021-12-15 20:07 | CT_ITS ---
PROCEDURE INFORMATION: Exam: CT Abdomen And Pelvis With Contrast Exam date and time: 12/15/2021 8:07 PM Age: 61 years old Clinical indication: Nausea and vomiting and other: Cough; Prior surgery; Surgery date: 6+ months; Surgery type: Appendix; Additional info: Abd pain with n/v TECHNIQUE: Imaging protocol: Computed tomography of the abdomen and pelvis with contrast. Radiation optimization: All CT scans at this facility use at least one of these dose optimization techniques: automated exposure control; mA and/or kV adjustment per patient size (includes targeted exams where dose is matched to clinical indication); or iterative reconstruction. Contrast material: ISOVUE; Contrast volume: 75 ml; Contrast route: IV; COMPARISON: CT ABDOMEN PELVIS W CON 02/11/2021 5:45 AM FINDINGS: Liver: Normal. No mass. Gallbladder and bile ducts: No calcified stones. No ductal dilation. Pancreas: Normal enhancement. No ductal dilation. Spleen: There are multiple splenic calcifications likely on the basis of prior granulomatous exposure. Adrenal glands: No mass. Kidneys and ureters: No hydronephrosis. Stomach and bowel: Heterogeneous asymmetric hypodense wall thickening of the gastric pylorus and proximal duodenum with adjacent stranding extending in the region of the head of the pancreas. The sigmoid colon is decompressed however does appear somewhat thickened without significant adjacent inflammatory change. Appendix: No evidence of appendicitis. Intraperitoneal space: No free air. No significant fluid collection. Vasculature: Calcified atherosclerosis. No aneurysm. Lymph nodes: Prominent retroperitoneal lymph nodes. Urinary bladder: No acute abnormality. Reproductive: No acute abnormality. Bones/joints: No acute fracture. Soft tissues: No soft tissue swelling. IMPRESSION: 1. Heterogeneous asymmetric hypodense wall thickening of the gastric pylorus and proximal duodenum with adjacent stranding extending in the region of the head of the pancreas which may be infectious or inflammatory however infiltrating lesion cannot be radiographically excluded. 2. The sigmoid colon is decompressed however does appear somewhat thickened without significant adjacent inflammatory change. Clinical correlation recommended. Colonoscopy may be warranted for further evaluation.
--- NOTE | 2021-12-15 20:07 | XR_ITS ---
PROCEDURE INFORMATION: Exam: XR Chest Exam date and time: 12/15/2021 8:07 PM Age: 61 years old Clinical indication: Cough TECHNIQUE: Imaging protocol: XR of the chest. Views: 2 views. COMPARISON: CR XR CHEST 2V 10/08/2021 2:38 AM FINDINGS: Lungs: Unremarkable. No consolidation. Pleural spaces: Unremarkable. No pleural effusion. No pneumothorax. Heart/Mediastinum: Unremarkable. No cardiomegaly. Bones/joints: Unremarkable. IMPRESSION: No acute findings.
[2021-12-15 20:19] LABS: Basophils # 0.1 K/mm3 (0-0.2); Basophils % 1.8 % (0.1-2.0); Eosinophils # 0.5 K/mm3 (0.0-0.4); Hemoglobin 12.8 g/dL (12.2-16.2); Lymphocytes # 1.8 K/mm3 (0.7-4.5); Lymphocytes % 22.7 % (10-50); Mean Corpuscular HGB Conc 31.9 g/dL (31.8-35.4); Mean Corpuscular Hemoglobin 30.6 pg (27.0-31.2); Mean Corpuscular Volume 95.9 fl (81-99); Mean Platelet Volume 9.7 fl (7.4-10.4); Monocytes # 0.4 K/mm3 (0.1-1.0); Monocytes % 4.6 % (1.7-9.3); Neutrophils % 64.9 % (37.0-80.0); Platelet Count 212 K/mm3 (142-424); Red Blood Count 4.17 M/mm3 (4.20-5.40); Red Cell Distribution Width 12.9 % (11.5-17.5); White Blood Count 7.7 K/mm3 (4.8-10.8)
[2021-12-15 20:20] LABS: Chloride 105 mmol/L (98-107); Potassium 3.7 mmoL/L (3.5-5.1); Sodium 137 mmol/L (136-145)
[2021-12-15 20:23] LABS: Alanine Aminotransferase 29 U/L (12-78); Albumin/Globulin Ratio 1.2 (1.1-1.8); Alkaline Phosphatase 152 U/L (38-126); Amylase 51 U/L (30-110); Anion Gap 6.7 mEq/L (5-15); Aspartate Amino Transferase 30 U/L (14-36); Bilirubin,Total 0.6 mg/dl (0.2-1.3); Blood Urea Nitrogen 13 mg/dl (7-17); Calcium 9.4 mg/dl (8.4-10.2); Carbon Dioxide 29 mmol/L (22.0-30.0); Creatinine Clearance Estimated 94 mL/min (50-200); Estimated Glomerular Filt Rate 86 ml/min (>60); GFR (African American) 104 ML/MIN (>60); Globulin 3.4 g/dL (1.3-3.2); Glucose 177 mg/dl (74-100); Lipase 290 U/L (23-300); Total Protein,Serum 7.4 g/dl (6.3-8.2)
[2021-12-15 20:24] LABS: Lactic Acid 0.8 mmol/L (0.7-2.1)
[2021-12-15 20:29] LABS: C-Reactive Protein 27.1 mg/L (0-4)
--- NOTE | 2021-12-15 20:34 | HMH.EDNVD ---
ED Disposition Clinical Impression: Gastritis Qualifiers: Gastritis type: unspecified gastritis Chronicity: acute Gastritis bleeding: without bleeding Qualified Code(s): K29.00 - Acute gastritis without bleeding Disposition: Home, Self-Care Condition on Discharge: Good Instructions: DI for Acute Abdominal Pain Additional Instructions: use meds and call pcp friday for follow up Prescriptions: Pantoprazole Sodium [Protonix 40mg tablet] 40 mg PO BID #60 tab Transmission Status: Pending to [facility] Referrals: Marta Schmitz PA [Primary Care Provider] - - Critical Care Critical Care Time: No Attestation: On 12/15/21, the high probability of a clinically significant, sudden or life threatening deterioration of the following system(s) required my full and direct attention, intervention and personal management. The time I documented below is in addition to time spent performing reported procedures but includes the following listed in this critical care notation. Medical Decision Making - Medical Records Medical records reviewed: Yes: I reviewed the patient's medical records. - Chris Inquiry Pt receiving controlled substance: No Vital Signs: 12/15/21 19:25 12/15/21 20:00 Temperature 98.2 F Temperature Source Oral Pulse Rate 81 Pulse Rate [Right] 76 Respiratory Rate 20 Blood Pressure 144/68 H Blood Pressure [Right Arm] 200/99 H Blood Pressure Mean [Right Arm] 132 Blood Pressure Source Manual Cuff/ Auscultation Blood Pressure Source [Right Arm] Automatic Cuff 02 Sat by Pulse Oximetry 97 95 Oxygen Delivery Method Room Air Room Air - Lab Data Lab results reviewed: Yes: I reviewed the patient's lab results. Lab Results 12/15/21 19:30: Urine Color Dk yellow, Urine Appearance Clear, Urine pH 5.5, Ur Specific Vaughn >= 1.030, Urine Protein Trace, Urine Glucose (UA) Negative, Urine Ketones Negative, Urine Blood Negative, Urine Nitrate Negative, Urine Bilirubin Negative, Urine Urobilinogen 2.0, Ur Leukocyte Esterase Negative, Urine WBC Occasional, Urine Bacteria Trace, Urine Mucus 1+ 12/15/21 19:40: WBC 7.7, RBC 4.17 L, Hgb 12.8, Hct 40.0, MCV 95.9, MCH 30.6, MCHC 31.9, RDW 12.9, Plt Count 212, MPV 9.7, Neut % (Auto) 64.9, Lymph % (Auto) 22.7, [place] % (Auto) 4.6, Eos % (Auto) 6.0, Baso % (Auto) 1.8, Neut # (Auto) 5.0, Lymph # (Auto) 1.8, [place] # (Auto) 0.4, Eos # (Auto) 0.5 H, Baso # (Auto) 0.1, ESR 92 H 12/15/21 19:40: Sodium 137, Potassium 3.7, Chloride 105, Carbon Dioxide 29, Anion Gap 6.7, BUN 13, Creatinine 0.70, Estimated Creat Clear 94, Estimated GFR 86, Est GFR ( Amer) 104, Glucose 177 H, Calcium 9.4, Total Bilirubin 0.6, AST 30, ALT 29, Alkaline Phosphatase 152 H, C-Reactive Protein 27.1 H, Total Protein 7.4, Albumin 4.0, Globulin 3.4 H, Albumin/Globulin Ratio 1.2, Amylase 51, Lipase 290, Procalcitonin 0.042, TSH 2.18, Thyroxine (T4) 12.7 H 12/15/21 19:40: Lactate 0.8 Result diagrams: 12/15/21 19:40 12/15/21 19:40 Orders (Tests/Meds): ED MEDICATIONS Generic Name Dose Route Start Last Admin Trade Name Freq PRN Reason Stop Dose Admin Sodium Chloride 1,000 mls @ 999 mls/hr 12/15/21 20:15 12/15/21 20:18 Sod Chlor 0.9% 1000ml Bag IV 12/15/21 21:15 999 mls/hr .[id number] ISAEL Administration Sodium Chloride 8 ml 12/15/21 20:13 Sodium Chloride 0.9% 10ml Vial IV 01/14/22 20:12 NEEDED PRN dilute pepcid Discontinued Medications Generic Name Dose Route Start Last Admin Trade Name Freq PRN Reason Stop Dose Admin Famotidine 20 mg 12/15/21 20:13 12/15/21 20:33 Famotidine 20mg/2ml Vial IV 12/15/21 20:14 20 mg ONCE ONE Administration Iopamidol 75 ml 12/15/21 21:17 12/15/21 21:18 Iopamidol-370 (76%);100ml Bottle IV 12/15/21 21:18 75 ml ONCE ONE Administration Ketorolac Tromethamine 30 mg 02/05/22 20:13 12/15/21 20:33 Ketorolac 30mg/Ml Vial IV 12/15/21 20:14 30 mg ONCE ONE Administration Metoclopramide HCl 10 mg
[2021-12-15 20:43] LABS: T4 (Thyroxine) 12.7 ug/dl (5.53-11.0)
[2021-12-15 20:55] LABS: Erythrocyte Sedimentation Rate 92 mm/hr (0-30)
[2021-12-15 20:56] LABS: Thyroid Stimulating Hormone 2.18 uIU/mL (0.465-4.68)
[2021-12-15 20:57] LABS: Procalcitonin 0.042 ng/mL (0.0-2.0)
[2021-12-15 22:08] VITALS: BP 145/65; PULSE 80; RESP 20; TEMP 36.8; O2SAT 99
== END 2021-12-15 22:37 | disposition home or self-care (01) ==
PROVIDERS: Student in an Organized Health Care Education/Training Program; Emergency Provider Emergency Medicine; PCP Physician Assistant
DX: K29.00 Acute gastritis without bleeding (principal); E78.5 Hyperlipidemia, unspecified
CPT/HCPCS: 71046; 74177; 80053; 81001; 82150; 83605; 83690; 84145; 84436; 84443; 85025; 85651; 86140; 96365; 96375; 99283; J2405; Q9967

== ENCOUNTER → 2022-01-07 16:00 | Outpatient (CLI) | payer OTHER, SELFPAY ==
[2022-01-07 13:24] LABS: Basophils # 0.1 K/mm3 (0-0.2); Basophils % 1.1 % (0.1-2.0); Eosinophils # 0.7 K/mm3 (0.0-0.4); Hematocrit 36.9 % (37.0-47.0); Hemoglobin 11.9 g/dL (12.2-16.2); Lymphocytes # 1.5 K/mm3 (0.7-4.5); Lymphocytes % 27.3 % (10-50); Mean Corpuscular HGB Conc 32.3 g/dL (31.8-35.4); Mean Corpuscular Hemoglobin 30.4 pg (27.0-31.2); Mean Corpuscular Volume 94.2 fl (81-99); Mean Platelet Volume 11.4 fl (7.4-10.4); Monocytes # 0.3 K/mm3 (0.1-1.0); Monocytes % 5.6 % (1.7-9.3); Platelet Count 208 K/mm3 (142-424); Red Blood Count 3.91 M/mm3 (4.20-5.40); Red Cell Distribution Width 13.5 % (11.5-17.5); White Blood Count 5.7 K/mm3 (4.8-10.8)
[2022-01-07 14:25] LABS: Chloride 102 mmol/L (98-107); Potassium 4.2 mmoL/L (3.5-5.1); Sodium 136 mmol/L (136-145)
[2022-01-07 14:27] LABS: Blood Urea Nitrogen 8 mg/dl (7-17); Estimated Glomerular Filt Rate 102 ml/min (>60); GFR (African American) 124 ML/MIN (>60)
[2022-01-07 14:28] LABS: Alanine Aminotransferase 22 U/L (12-78); Albumin Level 3.7 g/dl (3.5-5.0); Albumin/Globulin Ratio 1.3 (1.1-1.8); Alkaline Phosphatase 149 U/L (38-126); Anion Gap 8.2 mEq/L (5-15); Aspartate Amino Transferase 26 U/L (14-36); Bilirubin,Total 0.4 mg/dl (0.2-1.3); Calcium 8.2 mg/dl (8.4-10.2); Carbon Dioxide 30 mmol/L (22.0-30.0); Cholesterol 170 mg/dl (140-200); Globulin 2.9 g/dL (1.3-3.2); Glucose 161 mg/dl (74-100); HDL Cholesterol 34 mg/dl (40-60); Total Protein,Serum 6.6 g/dl (6.3-8.2); Triglycerides 246 mg/dl (30-150); VLDL Cholesterol 49 mg/dL (0-40)
[2022-01-07 14:45] LABS: 25-OH Vitamin D, Total 21.7 ng/mL (30-100)
[2022-01-07 14:59] LABS: Direct LDL Cholesterol 97.37 mg/dL (100-129)
[2022-01-07 15:09] LABS: Thyroid Stimulating Hormone 1.63 uIU/mL (0.465-4.68)
[2022-01-08 14:38] LABS: Iron 95 ug/dL (37-170)
[2022-01-08 14:47] LABS: Total Iron Binding Capacity 283 ug/dL (265-497)
[2022-01-08 15:14] LABS: Ferritin 72.6 ng/ml (11.1-264)
== END ==
PROVIDERS: Visit Provider Physician Assistant
DX: E11.9 Type 2 diabetes mellitus without complications (principal); D64.9 Anemia, unspecified; E55.9 Vitamin D deficiency, unspecified; Z79.84 Long term (current) use of oral hypoglycemic drugs
CPT/HCPCS: 80053; 80061; 82043; 82306; 82728; 83036; 83540; 83550; 84443; 85025

== ENCOUNTER → 2022-02-11 14:26 | Outpatient (CLI) | payer OTHER, SELFPAY ==
--- NOTE | 2022-02-11 14:34 | XR_ITS ---
FINAL REPORT CLINICAL HISTORY: dyspnea, smoker COMPARISON: December 16, 2021 FINDINGS: 2 views of the chest were obtained . The heart is normal in size. The mediastinum is within normal limits. There is bronchial wall thickening consistent with bronchiectasis. There is no pneumothorax. Osseous structures are unremarkable. IMPRESSION: Bronchial wall thickening consistent with bronchiectasis. Reviewed, Interpreted and Dictated by Jluis Lee III, MD Transcribed by Angelika Hastings Authenticated by lJuis Lee III, MD on 02/11/2022 04:24:22 PM [facility]
--- NOTE | 2022-02-11 14:41 | XR_ITS ---
FINAL REPORT TECHNIQUE: 3 views CLINICAL HISTORY: thoracic back pain FINDINGS: There is no fracture present. There is no malalignment. There are mild degenerative changes. IMPRESSION: No acute process. Reviewed, Interpreted and Dictated by Jluis Lee III, MD Transcribed by Angelika Hastings Authenticated by Jluis Lee III, MD on 02/11/2022 04:24:04 PM [facility]
[2022-02-11 16:10] LABS: Basophils # 0.1 K/mm3 (0-0.2); Eosinophils # 0.7 K/mm3 (0.0-0.4); Eosinophils % 12.8 % (0.1-12.0); Hematocrit 36.9 % (37.0-47.0); Hemoglobin 11.6 g/dL (12.2-16.2); Lymphocytes # 1.8 K/mm3 (0.7-4.5); Lymphocytes % 32.8 % (10-50); Mean Corpuscular HGB Conc 31.4 g/dL (31.8-35.4); Mean Corpuscular Hemoglobin 30.6 pg (27.0-31.2); Mean Corpuscular Volume 97.3 fl (81-99); Mean Platelet Volume 9.3 fl (7.4-10.4); Monocytes # 0.3 K/mm3 (0.1-1.0); Monocytes % 5.4 % (1.7-9.3); Neutrophils # 2.6 K/mm3 (1.8-7.8); Platelet Count 210 K/mm3 (142-424); Red Blood Count 3.79 M/mm3 (4.20-5.40); Red Cell Distribution Width 14.5 % (11.5-17.5); White Blood Count 5.5 K/mm3 (4.8-10.8)
[2022-02-11 16:53] LABS: Alanine Aminotransferase 26 U/L (12-78); Albumin Level 3.7 g/dl (3.5-5.0); Albumin/Globulin Ratio 1.4 (1.1-1.8); Alkaline Phosphatase 117 U/L (38-126); Anion Gap 7.4 mEq/L (5-15); Aspartate Amino Transferase 28 U/L (14-36); Bilirubin,Total 0.3 mg/dl (0.2-1.3); Blood Urea Nitrogen 17 mg/dl (7-17); Carbon Dioxide 32 mmol/L (22.0-30.0); Chloride 105 mmol/L (98-107); Estimated Glomerular Filt Rate 86 ml/min (>60); GFR (African American) 104 ML/MIN (>60); Globulin 2.7 g/dL (1.3-3.2); Glucose 237 mg/dl (74-100); Potassium 4.4 mmoL/L (3.5-5.1); Sodium 140 mmol/L (136-145); Total Protein,Serum 6.4 g/dl (6.3-8.2)
[2022-02-11 16:59] LABS: NT Pro Brain Natriuretic Pep. 160 pg/mL (0-125)
== END ==
PROVIDERS: PCP Physician Assistant; Visit Provider Physician Assistant
DX: M54.6 Pain in thoracic spine (principal); R06.00 Dyspnea, unspecified
CPT/HCPCS: 36415; 71046; 72072; 80053; 82728; 83540; 83550; 83880; 85025

== ENCOUNTER 2022-02-18 02:08 | Emergency (ER) | payer OTHER, SELFPAY ==
[2022-02-18 02:10] VITALS: BP 142/71; PULSE 73; RESP 16; TEMP 36.8; O2SAT 97; BMI 26.9
--- NOTE | 2022-02-18 02:14 | ECG_ITS ---
APPROVED REPORT Exam: Resting ECG HR:72 bpm ECG Measurements Heart Rate 72 AXES SC 136 P 79 QRSd 89 QRS 83 QT 407 T 81 QTc 431 Conclusion SINUS RHYTHM NORMAL ECG UNCONFIRMED REPORT Electronically signed by : Reginaldo Ramos MD 02/18/2022 15:57:52
--- NOTE | 2022-02-18 02:34 | CT_ITS ---
PROCEDURE INFORMATION: Exam: CTA Left Upper Extremity With Contrast Exam date and time: 02/18/2022 3:32 AM Age: 61 years old Clinical indication: Numbness; Upper limb; Left; Additional info: Lue numbness, tingling, pain, decreased radial pul TECHNIQUE: Imaging protocol: Computed tomographic angiography of the Left upper extremity with intravenous contrast material, including non-contrast images if performed. 3D rendering (Not supervised by radiologist): MIP and/or 3D reconstructed images were created by the technologist. Radiation optimization: All CT scans at this facility use at least one of these dose optimization techniques: automated exposure control; mA and/or kV adjustment per patient size (includes targeted exams where dose is matched to clinical indication); or iterative reconstruction. Contrast material: ISOVUE 370; Contrast volume: 100 ml; Contrast route: INTRAVENOUS (IV); COMPARISON: CR XR SHOULDER LT MIN 2V 10/07/2021 11:44 PM FINDINGS: Left subclavian artery: 80% stenosis of the left subclavian artery 9 mm beyond its ostium. Prominent atheromatous calcification of the proximal left subclavian artery is identified. Left axillary artery: No acute findings. No occlusion or significant stenosis. Left brachial artery: No acute findings. No occlusion or significant stenosis. Left radial artery: No acute findings. No occlusion or significant stenosis. Left ulnar artery: No acute findings. No occlusion or significant stenosis. Bones/joints: No acute fracture. No dislocation. Soft tissues: Unremarkable. No abnormal contrast enhancement. IMPRESSION: 1. 80% stenosis of the left subclavian artery 9 mm beyond its ostium. This is seen in conjunction with prominent atheromatous thrombus and calcification of the proximal left subclavian artery. 2. Left axillary, brachial, radial, and ulnar arteries are felt to be unremarkable.
--- NOTE | 2022-02-18 02:44 | HMH.EDGENADL ---
ED Disposition Clinical Impression: Subclavian arterial stenosis Disposition: Xfer Short-Term Hosp Condition on Discharge: Fair Referrals: Marta Schmitz PA [Primary Care Provider] - - Critical Care Critical Care Time: No Attestation: On 02/18/22, the high probability of a clinically significant, sudden or life threatening deterioration of the following system(s) required my full and direct attention, intervention and personal management. The time I documented below is in addition to time spent performing reported procedures but includes the following listed in this critical care notation. Medical Decision Making - Chris Inquiry Pt receiving controlled substance: No Vital Signs: 02/18/22 02:10 Temperature 98.2 F Temperature Source Oral Pulse Rate [Right] 73 Respiratory Rate 16 Blood Pressure [Right Arm] 142/71 H Blood Pressure Mean [Right Arm] 94 02 Sat by Pulse Oximetry 97 Oxygen Delivery Method Room Air - Lab Data Lab Results 02/18/22 02:58: WBC 8.1, RBC 4.14 L, Hgb 13.1, Hct 39.5, MCV 95.4, MCH 31.6 H, MCHC 33.1, RDW 14.4, Plt Count 248, MPV 9.5, Neut % (Auto) 46.9, Lymph % (Auto) 32.2, [place] % (Auto) 4.6, Eos % (Auto) 13.1 H, Baso % (Auto) 3.2 H, Neut # (Auto) 3.8, Lymph # (Auto) 2.6, [place] # (Auto) 0.4, Eos # (Auto) 1.1 H, Baso # (Auto) 0.3 H 02/18/22 02:58: Sodium 142, Potassium 3.8, Chloride 106, Carbon Dioxide 27, Anion Gap 12.8, BUN 14, Creatinine 0.70, Estimated Creat Clear 91, Estimated GFR 86, Est GFR ( Amer) 104, Glucose 74, Calcium 9.3, Total Bilirubin 0.5, AST 34, ALT 28, Alkaline Phosphatase 130 H, Total Protein 8.3 H D, Albumin 4.5, Globulin 3.8 H, Albumin/Globulin Ratio 1.2 Result diagrams: 02/18/22 02:58 02/18/22 02:58 Orders (Tests/Meds): ED MEDICATIONS Generic Name Dose Route Start Last Admin Trade Name Freq PRN Reason Stop Dose Admin Heparin Sodium/Dextrose 500 mls @ 24 mls/hr 02/18/22 05:15 Heparin 25,000 Units In D5w 500ml Premix IV 03/20/22 05:14 .[id number] ISAEL 1,200 UNITS/HR Miscellaneous 1 each 02/18/22 05:15 Heparin Drip Consult * 03/20/22 05:14 CONSULT PHARMACY ISAEL Discontinued Medications Generic Name Dose Route Start Last Admin Trade Name Freq PRN Reason Stop Dose Admin Acetaminophen 1,000 mg 02/18/22 03:14 Acetaminophen 500mg Tab PO 02/18/22 03:15 ONCE ONE Gabapentin 300 mg 02/18/22 02:35 02/18/22 03:08 Gabapentin 300mg Capsule PO 02/18/22 02:36 300 mg ONCE ONE Administration Heparin Sodium (Porcine) 5,000 unit 02/18/22 05:13 Heparin Sodium 5,000 Unit/Ml Vial IV 02/18/22 05:14 ONCE ONE Iopamidol 100 ml 02/18/22 04:00 02/18/22 04:01 Iopamidol-370 (76%);100ml Bottle IV 02/18/22 04:01 100 ml ONCE ONE Administration Morphine Sulfate 4 mg 02/18/22 02:36 Morphine 4mg/Ml Syringe IV 02/18/22 02:37 ONCE ONE Sodium Chloride 50 ml 02/18/22 04:00 02/18/22 04:01 0.9 % Sodium Chloride 50 Ml Vial IV 02/18/22 04:01 50 ml ONCE ONE Administration Sodium Chloride 10 ml 02/18/22 04:00 02/18/22 04:01 Sodium Chloride 0.9% 10ml Syr (Rad Only) IV 02/18/22 04:01 10 ml ONCE ONE Administration ORDERS Category Date Time Status PTT [Activated Partial Thrombo Time] Stat Lab 02/18/22 05:19 Ordered Rapid PCR Covid and Flu A/B Stat Lab 02/18/22 04:59 Received Medical Decision Narrative: DDx includes but not limited to arterial occlusion, significant arterial stenosis, cervical radiculopathy, peripheral neuropathy in setting of known DM. HDS, NAD, well appearing. Decreased radial pulse on left compared to right with decreased general sensation to light touch on left. Has full ROM in BUE. Pain with movement of LUE. No chest, abdominal, back, or LE symptoms. Lower acute concern for aortic vascular emergency in this setting. Patient given tylenol, gabapentin in ED. CTA LUE shows 80% stenosis of left subclavian artery. On reassessment patient states pain is imp
[2022-02-18 03:04] LABS: Basophils # 0.3 K/mm3 (0-0.2); Basophils % 3.2 % (0.1-2.0); Eosinophils # 1.1 K/mm3 (0.0-0.4); Eosinophils % 13.1 % (0.1-12.0); Hematocrit 39.5 % (37.0-47.0); Hemoglobin 13.1 g/dL (12.2-16.2); Lymphocytes # 2.6 K/mm3 (0.7-4.5); Lymphocytes % 32.2 % (10-50); Mean Corpuscular HGB Conc 33.1 g/dL (31.8-35.4); Mean Corpuscular Hemoglobin 31.6 pg (27.0-31.2); Mean Corpuscular Volume 95.4 fl (81-99); Mean Platelet Volume 9.5 fl (7.4-10.4); Monocytes # 0.4 K/mm3 (0.1-1.0); Monocytes % 4.6 % (1.7-9.3); Neutrophils # 3.8 K/mm3 (1.8-7.8); Neutrophils % 46.9 % (37.0-80.0); Platelet Count 248 K/mm3 (142-424); Red Blood Count 4.14 M/mm3 (4.20-5.40); Red Cell Distribution Width 14.4 % (11.5-17.5); White Blood Count 8.1 K/mm3 (4.8-10.8)
[2022-02-18 03:14] LABS: Alanine Aminotransferase 28 U/L (12-78); Albumin Level 4.5 g/dl (3.5-5.0); Albumin/Globulin Ratio 1.2 (1.1-1.8); Alkaline Phosphatase 130 U/L (38-126); Anion Gap 12.8 mEq/L (5-15); Aspartate Amino Transferase 34 U/L (14-36); Bilirubin,Total 0.5 mg/dl (0.2-1.3); Blood Urea Nitrogen 14 mg/dl (7-17); Calcium 9.3 mg/dl (8.4-10.2); Carbon Dioxide 27 mmol/L (22.0-30.0); Chloride 106 mmol/L (98-107); Creatinine Clearance Estimated 91 mL/min (50-200); Estimated Glomerular Filt Rate 86 ml/min (>60); GFR (African American) 104 ML/MIN (>60); Globulin 3.8 g/dL (1.3-3.2); Glucose 74 mg/dl (74-100); Potassium 3.8 mmoL/L (3.5-5.1); Sodium 142 mmol/L (136-145); Total Protein,Serum 8.3 g/dl (6.3-8.2)
--- NOTE | 2022-02-18 04:58 | PC.NURSE ---
calling [facility] md[facility] at this time.
--- NOTE | 2022-02-18 05:01 | PC.NURSE ---
SHYLA VILLAGRAN speaking to Dr. Lira at
[2022-02-18 05:04] LABS: Coronavirus 19, PCR Not Detected (NotDetected); Influenza A, PCR Not Detected (NotDetected); Influenza B, PCR Not Detected (NotDetected)
--- NOTE | 2022-02-18 05:16 | PC.NURSE ---
Dr. Lira at as accepted this pt to [facility] ED
--- NOTE | 2022-02-18 05:20 | PC.NURSE ---
spoke with terrell simpson at [facility]. confirmed dosage.
[2022-02-18 05:36] LABS: Activated Partial Thrombo Time 26.4 seconds (22.8-30.6)
[2022-02-18 05:40] VITALS: BP 124/71; PULSE 72; RESP 16; TEMP 36.8; O2SAT 97
--- NOTE | 2022-02-18 05:48 | PC.NURSE ---
report called to Adriana MOORE at ED
== END 2022-02-18 05:48 | disposition short-term general hospital (02) ==
PROVIDERS: Emergency Provider Student in an Organized Health Care Education/Training Program; PCP Physician Assistant
DX: I77.1 Stricture of artery (principal); I65.23 Occlusion and stenosis of bilateral carotid arteries; R20.0 Anesthesia of skin; I50.9 Heart failure, unspecified; E78.5 Hyperlipidemia, unspecified; F33.1 Major depressive disorder, recurrent, moderate; F17.210 Nicotine dependence, cigarettes, uncomplicated; Z79.899 Other long term (current) drug therapy
CPT/HCPCS: 73206; 80053; 85025; 85730; 93005; 96365; 99284; C9803; Q9967; U0003; U0005

== ENCOUNTER → 2022-03-07 07:46 | Outpatient (CLI) | payer OTHER, SELFPAY | PROVIDERS: Visit Provider Physician Assistant | DX: Z01.812 Encounter for preprocedural laboratory examination (principal); Z11.52 Encounter for screening for COVID-19; I25.10 Atherosclerotic heart disease of native coronary artery without angina pectoris | CPT/HCPCS: C9803; U0003; U0005 ==

== ENCOUNTER 2022-03-08 07:19 | Day surgery (SDC) | payer OTHER, SELFPAY ==
[2022-03-08] VITALS (12 sets, daily range): BP systolic 133–163; BP diastolic 70–109; PULSE 55–78; RESP 16–18; TEMP 36.8; O2SAT 94–98; BMI 26.3
--- NOTE | 2022-03-08 07:12 | IR_ITS ---
APPROVED REPORT Patient Location: Outpatient It Support Engineer: KEE Briceno RT (R) PROCEDURES Right femoral arterial access Catheter placement left subclavian artery Left subclavian artery selective angiogram Bare-metal stent deployment to the left subclavian artery INDICATION Subclavian stenosis, Symptomatic subclavian stenosis with vertebral steal Informed consent was obtained prior to the procedure. COMPLICATIONS None Estimated Blood Loss: Less than 10 ML TECHNIQUE 1% lidocaine used anesthetize right groin the right femoral artery was accessed via the sounder technique and a 4 [place] sheath was placed in the right femoral artery. A JR4 was used to selectively intubate the left subclavian artery. Angiography was performed followed by a long advantage wire being placed into the brachial artery under fluoroscopic guidance. The 4 [place] sheath and catheter were removed and replaced with a 90 cm 8 [place] sheath. A 9 mm x 27 mm balloon mounted VISI Pro stent was deployed at 10 harry reducing the severe stenosis to 0%. Excellent angiographic results were obtained. At the end the procedure the apparatus was removed the groin was reprepped gloves were changed sheath was removed and hemostasis was achieved using Perclose device patient was transferred to the postop putting in stable condition ANGIOGRAPHIC RESULTS Left subclavian artery has a concentric 80 to 90% stenosis IMPRESSION Severe symptomatic left subclavian artery stenosis Successful stenting left subclavian artery severe disease reduced to 0% with 1 bare-metal stent PLAN 1. Dual antiplatelet therapy for 1 month because of the peripheral artery disease. 2. LDL less than 55 to be achieved with high intensity statin 3. Risk factor modification 4. Evaluation of ischemic heart disease given the severity of patient's peripheral artery disease Electronically signed by : Aristeo Aviles MD 03/08/2022 10:14:30
--- NOTE | 2022-03-08 13:50 | HMH.PHACLD ---
Marivel Arnold has received discharge medication counseling on the following medications: -PLAVIX (BLEEDING/BRUISING RISK, WATCH FOR SIGNS/SYMPTOMS OF BLEEDING WHERE IT SHOULDN'T BE, BE SEEN IF YOU BUMP YOUR HEAD). -ASPIRIN -METOPROLOL -LISINOPRIL -METFORMIN (HOLD UNTIL FRIDAY)
[2022-03-08 14:42] LABS: CATHL Activated Clotting Time > 400 SEC (74-125)
== END 2022-03-08 13:42 | disposition home or self-care (01) ==
LOC: CATHLAB 07:21
PROVIDERS: PCP Physician Assistant; Visit Provider Internal Medicine
DX: I70.8 Atherosclerosis of other arteries (principal); I77.1 Stricture of artery; Z79.899 Other long term (current) drug therapy; E11.9 Type 2 diabetes mellitus without complications; Z79.84 Long term (current) use of oral hypoglycemic drugs; I25.10 Atherosclerotic heart disease of native coronary artery without angina pectoris; F17.210 Nicotine dependence, cigarettes, uncomplicated; I65.23 Occlusion and stenosis of bilateral carotid arteries; I10 Essential (primary) hypertension; E78.5 Hyperlipidemia, unspecified
CPT/HCPCS: 37236; 85347; 99152; C1725; C1760; C1769; C1776; C1876; J1644; Q9967

== ENCOUNTER → 2022-03-21 10:05 | Outpatient (CLI) | payer OTHER, SELFPAY ==
[2022-03-21 10:27] LABS: Basophils # 0.1 K/mm3 (0-0.2); Basophils % 1.4 % (0.1-2.0); Eosinophils # 0.9 K/mm3 (0.0-0.4); Eosinophils % 13.6 % (0.1-12.0); Hematocrit 34.8 % (37.0-47.0); Hemoglobin 11.4 g/dL (12.2-16.2); Lymphocytes # 1.7 K/mm3 (0.7-4.5); Lymphocytes % 25.6 % (10-50); Mean Corpuscular HGB Conc 32.6 g/dL (31.8-35.4); Mean Corpuscular Hemoglobin 31.7 pg (27.0-31.2); Mean Platelet Volume 8.5 fl (7.4-10.4); Monocytes # 0.3 K/mm3 (0.1-1.0); Neutrophils # 3.5 K/mm3 (1.8-7.8); Neutrophils % 54.4 % (37.0-80.0); Platelet Count 283 K/mm3 (142-424); Red Blood Count 3.59 M/mm3 (4.20-5.40); Red Cell Distribution Width 14.2 % (11.5-17.5); White Blood Count 6.4 K/mm3 (4.8-10.8)
[2022-03-21 10:53] LABS: Blood Urea Nitrogen 16 mg/dl (7-17); Calcium 8.9 mg/dl (8.4-10.2); Carbon Dioxide 27 mmol/L (22.0-30.0); Chloride 110 mmol/L (98-107); Estimated Glomerular Filt Rate 86 ml/min (>60); GFR (African American) 104 ML/MIN (>60); Glucose 148 mg/dl (74-100); Sodium 142 mmol/L (136-145)
== END ==
PROVIDERS: PCP Physician Assistant; Visit Provider Internal Medicine
DX: I25.10 Atherosclerotic heart disease of native coronary artery without angina pectoris (principal); I10 Essential (primary) hypertension
CPT/HCPCS: 36415; 80048; 85025

== ENCOUNTER 2022-03-26 09:06 | Emergency (ER) | payer OTHER, SELFPAY ==
[2022-03-26 09:22] VITALS: BP 140/69; PULSE 90; RESP 19; TEMP 36.8; O2SAT 99; BMI 26.3
[2022-03-26 09:27] LABS: UTC Influenza A Antigen Negative (Negative); UTC Influenza B Antigen Negative (Negative)
[2022-03-26 09:38] LABS: Strep Scrn Group A (Rapid) Negative (Negative)
--- NOTE | 2022-03-26 09:57 | HMH.EDUTC ---
[facility] Disposition Clinical Impression: Acute bronchitis Qualifiers: Bronchitis organism: unspecified organism Qualified Code(s): J20.9 - Acute bronchitis, unspecified Sinusitis Qualifiers: Sinusitis location: unspecified location Chronicity: acute Recurrence: non-recurrent Qualified Code(s): J01.90 - Acute sinusitis, unspecified Disposition: Home, Self-Care Condition on Discharge: Good Instructions: DI for Sinusitis, DI for Acute Bronchitis Additional Instructions: Drink plenty of fluids. Take tylenol or ibuprofen for pain or fever. Take the medications as directed. Follow up with your regular doctor. GO TO THE ER FOR ANY WORSENING SYMPTOMS Quarantine until you know the results of your covid-19 test. Notify your school or workplace of your results and follow their instructions regarding return to work/school. Don't start the oral steroids until tomorrow, since you had the shot here today. The cough medication (promethazine dm) will make you drowsy, so don't drive or operate heavy machinery after taking it. Prescriptions: Promethazine/Dextromethorphan [Promethazine-Dm Syrup] 5 ml PO Q6HP PRN #240 ml PRN Reason: Cough Transmission Status: Sent to [facility] methylPREDNISolone [Medrol] 4 mg PO DIRECTED 6 Days #21 packet Transmission Status: Sent to [facility] guaiFENesin [Mucinex 600mg tablet] 1 - 2 tab PO BIDP PRN #30 tab PRN Reason: Congestion Transmission Status: Sent to [facility] Azithromycin [Z-Taran 250mg Tab*] 250 mg PO UD DOSE PK #6 tab Transmission Status: Sent to [facility] Referrals: Marta Schmitz PA [Primary Care Provider] - Forms: Work/School Release Time of Disposition: 10:06 Medical Decision Making - Medical Records Medical records reviewed: No: I reviewed the patient's medical records. - Chris Inquiry Pt receiving controlled substance: No Vital Signs: 03/26/22 09:22 03/26/22 10:09 Temperature 98.2 F 98.2 F Temperature Source Oral Pulse Rate 90 Pulse Rate [Left Radial] 90 Respiratory Rate 19 19 Blood Pressure 140/69 Blood Pressure [Right Arm] 140/69 Blood Pressure Mean [Right Arm] 92 02 Sat by Pulse Oximetry 99 - Lab Data Lab Results 03/26/22 09:20: Group A Strep Rapid Negative 03/26/22 09:20: Influenza Type A Ag Negative, Influenza Type B Ag Negative Orders (Tests/Meds): ED MEDICATIONS Discontinued Medications Generic Name Dose Route Start Last Admin Trade Name Antonio PRN Reason Stop Dose Admin Methylprednisolone Sodium Succinate 125 mg 03/26/22 09:54 03/26/22 10:02 Methylprednisolone Sod Succ 125mg Vial IM 03/26/22 09:55 125 mg ONCE ONE Administration ORDERS Category Date Time Status Covid-19 Nasal PCR ([facility]) Routine Lab 03/26/22 10:02 Ordered Strep Screen Confirmation Stat Micro 03/26/22 09:20 Received [facility] HPI - General Stated complaint: runny nose, PEREZ, chest congestion, bodyaces, cough Time Seen by Provider: 03/26/22 09:30 Mode of Arrival: Ambulatory Source of Information: Patient Limitations: No Limitations Description of Symptoms (Recalled from Triage Doc. by RN): pt here with c/o cough, headache, runny nose. symptoms began yesterday HEENT Symptoms (Recalled from RN notes): Yes Resp Symptoms (Recalled from RN notes): No Skin Symptoms (Recalled from RN notes): No MS Symptoms (Recalled from RN notes): No Functional Status (Recalled from RN notes): wnl - History of Present Illness Provider Complaint: She states that for the past 5 days she has had worsening sinus and chest congestion. She has had low grade fever and body aches. - Related Data Previous Rx's Medication Instructions Recorded alcohol swabs 1 pad TOPICAL TID #100 each 10/08/21 blood sugar diagnostic See Rx Instructions .ROUTE #50 each 10/08/21 blood-glucose meter See Rx Instructions .ROUTE 10/08/21 .MEDSUPPLY #1 each lancets See Rx Instructions .ROUTE #100 10/08/21 each Pantopr
[2022-03-26 10:09] VITALS: BP 140/69; PULSE 90; RESP 19; TEMP 36.8
== END 2022-03-26 10:10 | disposition home or self-care (01) ==
PROVIDERS: Emergency Provider Nurse Practitioner Family; PCP Physician Assistant
DX: J20.9 Acute bronchitis, unspecified (principal); J01.90 Acute sinusitis, unspecified
CPT/HCPCS: 87430; 87804; 99212; G0463

== ENCOUNTER 2022-06-12 14:45 | Emergency (ER) | payer OTHER, SELFPAY ==
[2022-06-12 15:02] VITALS: BP 139/73; PULSE 81; RESP 16; TEMP 36.8; O2SAT 95; BMI 24.4
--- NOTE | 2022-06-12 15:06 | HMH.EDUTC ---
[facility] [place] Disposition Clinical Impression: Viral syndrome Acute bronchitis Qualifiers: Bronchitis organism: unspecified organism Qualified Code(s): J20.9 - Acute bronchitis, unspecified Disposition: Home, Self-Care Condition on Discharge: Good Instructions: DI for Viral Syndrome, Preventing the Spread of Coronavirus Discharge Instructions Additional Instructions: Drink plenty of fluids. Take tylenol or ibuprofen for pain or fever. Take the medications as directed. Follow up with your regular doctor. GO TO THE ER FOR ANY WORSENING SYMPTOMS Quarantine until you know the results of your covid-19 test. Notify your school or workplace of your results and follow their instructions regarding return to work/school. Prescriptions: Benzonatate [Benzonatate 100mg cap] 100 mg PO TIDP PRN #30 cap PRN Reason: Cough Transmission Status: Received by [facility] Azithromycin [Z-Taran 250mg Tab*] 250 mg PO UD DOSE PK #6 tab Transmission Status: Received by [facility] Referrals: Marta Schmitz PA [Primary Care Provider] - Forms: Work/School Release Time of Disposition: 15:40 Medical Decision Making - Medical Records Medical records reviewed: No: I reviewed the patient's medical records. - Chris Inquiry Pt receiving controlled substance: No Vital Signs: 06/12/22 15:02 06/12/22 15:42 Temperature 98.3 F 98.3 F Temperature Source Oral Pulse Rate 81 Pulse Rate [Left] 81 Respiratory Rate 16 16 Blood Pressure 139/73 Blood Pressure [Right Arm] 139/73 Blood Pressure Mean [Right Arm] 95 02 Sat by Pulse Oximetry 95 Orders (Tests/Meds): ORDERS Category Date Time Status Covid-19 Nasal PCR ([facility]) Routine Lab 06/12/22 15:01 Received [facility] [place] HPI - General Stated complaint: Cough, bilateral eye drainage, chills Time Seen by Provider: 06/12/22 15:06 Mode of Arrival: Ambulatory Source of Information: Patient Limitations: No Limitations Description of Symptoms (Recalled from Triage Doc. by RN): patient comes in with complaints of sweating, headache, weak cough, dizziness. HEENT Symptoms (Recalled from RN notes): Yes Resp Symptoms (Recalled from RN notes): Yes Skin Symptoms (Recalled from RN notes): No MS Symptoms (Recalled from RN notes): No Functional Status (Recalled from RN notes): n/a - History of Present Illness Provider Complaint: She states that she has been feeling bad, having a headache and chest congestion for the past 2 days. She tested positive for covid-19 last week. She states that she feels some better, but she is more congested that she has been before today. She denies any n/v. - Related Data Previous Rx's Medication Instructions Recorded alcohol swabs 1 pad TOPICAL TID #100 each 10/08/21 blood sugar diagnostic See Rx Instructions .ROUTE #50 each 10/08/21 blood-glucose meter See Rx Instructions .ROUTE 10/08/21 .MEDSUPPLY #1 each lancets See Rx Instructions .ROUTE #100 10/08/21 each Pantoprazole Sodium [Protonix 40mg 40 mg PO BID #60 tab 12/15/21 tablet] aspirin 81 mg tablet,delayed 81 mg PO DAILY #90 tab 01/07/22 release cholecalciferol (vitamin D3) 1,250 1,250 mcg PO WEEKLY #14 cap 01/08/22 mcg (50,000 unit) capsule cholecalciferol (vitamin D3) 25 25 mcg PO DAILY #90 cap 01/08/22 mcg (1,000 unit) capsule metoprolol succinate 25 mg 25 mg PO QHS #30 tab 01/29/22 tablet,extended release 24 hr lisinopril 10 mg tablet 10 mg PO DAILY #90 tab 02/08/22 leflunomide 20 mg tablet 20 mg PO DAILY #90 tab 02/11/22 empagliflozin 10 mg tablet 10 mg PO DAILY #90 tab 02/12/22 glipizide 10 mg tablet, extended 10 mg PO DAILY #90 tab 03/11/22 release 24 hr atorvastatin 80 mg tablet 80 mg PO HS #90 tab 03/22/22 lorazepam 0.5 mg tablet 0.5 mg PO BID PRN #30 tab 04/15/22 metformin 500 mg tablet,extended See Rx Instructions .ROUTE 04/17/22 release 24 hr .COMPLEX #90 tab sacubitril 24 mg-valsartan 26 mg See Rx Instructions .ROUTE 04/22/22 tablet .C
[2022-06-12 15:42] VITALS: BP 139/73; PULSE 81; RESP 16; TEMP 36.8
== END 2022-06-12 15:49 | disposition home or self-care (01) ==
PROVIDERS: Emergency Provider Nurse Practitioner Family; PCP Physician Assistant
DX: B34.9 Viral infection, unspecified (principal); J20.9 Acute bronchitis, unspecified; F17.210 Nicotine dependence, cigarettes, uncomplicated; Z86.16 Personal history of COVID-19
CPT/HCPCS: 99212; C9803; G0463; U0003; U0005

== ENCOUNTER → 2022-07-02 07:44 | Outpatient (CLI) | payer OTHER, SELFPAY ==
--- NOTE | 2022-07-02 07:46 | CA_ITS ---
FINAL REPORT TECHNIQUE: extremity venous duplex was performed with augmentation and compression. CLINICAL HISTORY: pain and swelling right upper extremity, patient denies trauma, states she woke up with pain in right shoulder 1 week ago. HLD, DM, smoker. FINDINGS: Proper flow is seen throughout the deep venous system. There is no evidence of deep venous thrombosis. IMPRESSION: No deep venous thrombosis of the right upper extremity.. Reviewed, Interpreted and Dictated by Alonso Yu MD Transcribed by Dolores Lyons Authenticated and [facility]
== END ==
LOC: RT 07:45
PROVIDERS: PCP Physician Assistant; Visit Provider Physician Assistant
DX: M79.601 Pain in right arm (principal); M79.89 Other specified soft tissue disorders
CPT/HCPCS: 93971

== ENCOUNTER 2022-07-16 11:48 | Emergency (ER) | payer OTHER, SELFPAY ==
--- NOTE | 2022-07-16 12:12 | EXP.UTC ---
Discharge Plan Disposition Patient Disposition: Home, Self-Care Condition: Good Prescriptions Prescriptions: New azithromycin [Zithromax] 250 mg tablet 250 mg PO UD DOSE PK Qty: 6 0RF Rx Instructions: Take two (2) tablets today, then one (1) tablet days #2 thru #5 benzonatate [benzonatate] 100 mg capsule 100 mg PO TIDP PRN (Reason: Cough) Qty: 30 0RF methylprednisolone 4 mg Tablets,Dose Pack 4 mg PO DIRECTED Qty: 21 0RF No Action (DME) blood-glucose meter [Blood Glucose Monitoring] Kit See Rx Instructions .ROUTE .MEDSUPPLY Qty: 1 0RF Rx Instructions: As directed (DME) Blood Glucose Test Strip See Rx Instructions .Route Qty: 50 12RF Rx Instructions: As directed (DME) lancets [Accu-Chek Softclix Lancets] Misc See Rx Instructions .Route Qty: 100 12RF Rx Instructions: As directed alcohol swabs Pads, Medicated 1 pad TOPICAL TID Qty: 100 12RF aspirin [Adult Aspirin Regimen] 81 mg tablet,delayed release (DR/EC) 81 mg PO DAILY Qty: 90 0RF lorazepam [Ativan] 0.5 mg tablet 0.5 mg PO BID PRN (Reason: anxiety) Qty: 30 0RF leflunomide 20 mg tablet 20 mg PO DAILY Qty: 90 3RF cholecalciferol (vitamin D3) 1,250 mcg (50,000 unit) capsule 1,250 mcg PO WEEKLY Qty: 14 0RF cholecalciferol (vitamin D3) 25 mcg (1,000 unit) capsule 25 mcg PO DAILY Qty: 90 3RF metoprolol succinate [Toprol XL] 25 mg tablet extended release 24 hr 25 mg PO QHS Qty: 30 5RF lisinopril 10 mg tablet 10 mg PO DAILY Qty: 90 0RF Jardiance 10 mg tablet 10 mg PO DAILY Qty: 90 3RF glipizide 10 mg tablet extended release 24hr 10 mg PO DAILY Qty: 90 3RF atorvastatin [Lipitor] 80 mg tablet 80 mg PO HS Qty: 90 3RF metformin 500 mg tablet extended release 24 hr See Rx Instructions .ROUTE .COMPLEX Qty: 90 3RF Dose Instruction: TAKE 1 TABLET DAILY Rx Instructions: TAKE 1 TABLET DAILY Entresto 24-26 mg tablet See Rx Instructions .ROUTE .COMPLEX Qty: 60 11RF Dose Instruction: TAKE 1 TABLET TWICE A DAY Rx Instructions: TAKE 1 TABLET TWICE A DAY duloxetine [Cymbalta] 30 mg capsule,delayed release(DR/EC) 30 mg PO DAILY Qty: 30 2RF hydrocodone-acetaminophen 5-325 mg tablet 1 tab PO TID PRN (Reason: pain) Qty: 30 0RF methylprednisolone [Medrol (Taran)] 4 mg tablets,dose pack See Rx Instructions PO PER PKG DIR Qty: 21 0RF Rx Instructions: PO PER PKG DIR pantoprazole 40 MG tablet,delayed release (DR/EC) 40 mg PO BID Qty: 60 0RF Referrals Follow up/Referrals: Marta Schmitz PA [Primary Care Provider] - See instructions Activity Restrictions/Add. Instructions Additional Instructions/Restrictions: Drink plenty of fluids. Take tylenol or ibuprofen for pain or fever. Take the medications as directed. Follow up with your regular doctor. GO TO THE ER FOR ANY WORSENING SYMPTOMS Quarantine until you know the results of your covid-19 test. Notify your school or workplace of your results and follow their instructions regarding return to work/school. Clinical Impressions Clinical Impression: Acute viral syndrome, Acute bronchitis, Exposure to respiratory syncytial virus Stand Alone Forms Stand Alone Forms: Work/School Release Instructions Patient Instructions: DI for Respiratory Syncytial Virus -- Adults, Preventing the Spread of Coronavirus Discharge Instructions Discharge ED Provider: Pedro Owens [facility] [place] HPI General Stated complaint: cough, congestion, sob Time Seen by Provider: 07/16/22 12:20 History of Present Illness Provider Complaint: She c/o 2 days of worsening sinus and chest congestion. She has been exposed to rsv in her home. Related Data Previous Rx's Medication Instructions Recorded alcohol swabs 1 pad topical TID #100 ea 10/08/21 blood sugar diagnostic (Blood #50 ea 10/08/21 Glucose Test strips) blood-glucose meter (Blood Gl
[2022-07-16 12:18] LABS: Adenovirus,PCR Not Detected (NotDetected); Bordetella Pertussis Not Detected (NotDetected); Chlamydophila Pneumoniae, PCR Not Detected (NotDetected); Coronavirus 19, PCR Not Detected (NotDetected); Coronavirus 229E Not Detected (NotDetected); Coronavirus NL63 Not Detected (NotDetected); Coronavirus OC43 Not Detected (NotDetected); Coronovirus HKU1,PCR Not Detected (NotDetected); Human Metapneumovirus Not Detected (NotDetected); Influenza A, PCR Not Detected (NotDetected); Influenza AH1, 2009 Not Detected (NotDetected); Influenza AH1, PCR Not Detected (NotDetected); Influenza AH3,PCR Not Detected (NotDetected); Influenza B, PCR Not Detected (NotDetected); Mycoplasma Pneumoniae, PCR Not Detected (NotDetected); Parainfluenza 1, PCR Not Detected (NotDetected); Parainfluenza 2, PCR Not Detected (NotDetected); Parainfluenza 3, PCR Not Detected (NotDetected); Parainfluenza 4, PCR Not Detected (NotDetected); Respiratory Syncytial Virus Not Detected (NotDetected)
[2022-07-16 12:19] VITALS: BP 140/73; PULSE 75; RESP 16; TEMP 37; O2SAT 98; BMI 24.7
[2022-07-16 13:20] VITALS: BP 140/73; PULSE 75; RESP 16; TEMP 37
[2022-07-16 13:45] LABS: Rhinovirus/Enterovirus Detected (NotDetected)
== END 2022-07-16 13:20 | disposition home or self-care (01) ==
PROVIDERS: Emergency Provider Nurse Practitioner Family; PCP Physician Assistant
DX: R94.31 Abnormal electrocardiogram [ECG] [EKG]; R20.2 Paresthesia of skin; R05.9 Cough, unspecified; Z20.822 Contact with and (suspected) exposure to COVID-19; I50.9 Heart failure, unspecified; E78.5 Hyperlipidemia, unspecified; E11.9 Type 2 diabetes mellitus without complications; M06.9 Rheumatoid arthritis, unspecified; M50.30 Other cervical disc degeneration, unspecified cervical region; E55.9 Vitamin D deficiency, unspecified; F32.A Depression, unspecified; F41.9 Anxiety disorder, unspecified; F17.210 Nicotine dependence, cigarettes, uncomplicated; Z79.1 Long term (current) use of non-steroidal anti-inflammatories (NSAID); Z79.52 Long term (current) use of systemic steroids; Z79.82 Long term (current) use of aspirin; Z79.899 Other long term (current) drug therapy
CPT/HCPCS: 87581; 87632; 87798; 99213; C9803; G0463; U0003; U0005

== ENCOUNTER → 2022-09-23 09:10 | Outpatient (CLI) | payer OTHER, SELFPAY ==
[2022-09-23 13:29] LABS: Basophils # 0.1 K/mm3 (0-0.2); Basophils % 1.4 % (0.1-2.0); Eosinophils # 0.5 K/mm3 (0.0-0.4); Eosinophils % 8.5 % (0.1-12.0); Hematocrit 39.2 % (37.0-47.0); Hemoglobin 12.2 g/dL (12.2-16.2); Lymphocytes # 1.2 K/mm3 (0.7-4.5); Lymphocytes % 19.7 % (10-50); Mean Corpuscular HGB Conc 31.1 g/dL (31.8-35.4); Mean Corpuscular Hemoglobin 30.8 pg (27.0-31.2); Mean Platelet Volume 9.9 fl (7.4-10.4); Monocytes # 0.4 K/mm3 (0.1-1.0); Monocytes % 6.3 % (1.7-9.3); Neutrophils # 3.8 K/mm3 (1.8-7.8); Neutrophils % 64.1 % (37.0-80.0); Platelet Count 206 K/mm3 (142-424); Red Blood Count 3.96 M/mm3 (4.20-5.40); Red Cell Distribution Width 13.8 % (11.5-17.5)
[2022-09-23 13:38] LABS: Sodium 144 mmol/L (136-145)
[2022-09-23 13:39] LABS: Alanine Aminotransferase 27 U/L (12-78); Albumin Level 4.1 g/dl (3.5-5.0); Albumin/Globulin Ratio 1.4 (1.1-1.8); Alkaline Phosphatase 164 U/L (38-126); Aspartate Amino Transferase 33 U/L (14-36); Bilirubin,Total 0.3 mg/dl (0.2-1.3); Blood Urea Nitrogen 15 mg/dl (7-17); Calcium 9.7 mg/dl (8.4-10.2); Carbon Dioxide 31 mmol/L (22.0-30.0); Chloride 105 mmol/L (98-107); Chol/HDL Ratio 3.3 (1-3.5); Cholesterol 160 mg/dl (140-200); Estimated Glomerular Filt Rate 85 ml/min (>60); GFR (African American) 103 ML/MIN (>60); Glucose 125 mg/dl (74-100); HDL Cholesterol 48 mg/dl (40-60); Total Protein,Serum 7.1 g/dl (6.3-8.2); Triglycerides 106 mg/dl (30-150); VLDL Cholesterol 21 mg/dL (0-40)
[2022-09-23 13:50] LABS: Direct LDL Cholesterol 86.51 mg/dL (100-129)
[2022-09-23 13:55] LABS: 25-OH Vitamin D, Total 38.6 ng/mL (30-100)
[2022-09-23 14:10] LABS: Thyroid Stimulating Hormone 1.62 uIU/mL (0.465-4.68)
[2022-09-23 14:17] LABS: Hemoglobin A1C 6.8 % (4.0-6.0)
== END ==
PROVIDERS: PCP Physician Assistant; Visit Provider Physician Assistant
DX: E11.9 Type 2 diabetes mellitus without complications (principal); Z79.84 Long term (current) use of oral hypoglycemic drugs
CPT/HCPCS: 80053; 80061; 82306; 83036; 84443; 85025

== ENCOUNTER 2022-10-24 15:04 | Emergency (ER) | payer OTHER, SELFPAY ==
[2022-10-24 16:30] VITALS: BP 143/70; PULSE 72; RESP 18; TEMP 36.7; O2SAT 99; BMI 25.5
--- NOTE | 2022-10-24 16:32 | EXP.UTC ---
Discharge Plan Disposition Patient Disposition: Still a Patient Condition: Fair Prescriptions Prescriptions: No Action (DME) blood-glucose meter [Blood Glucose Monitoring] Kit See Rx Instructions .ROUTE .MEDSUPPLY Qty: 1 0RF Rx Instructions: As directed (DME) Blood Glucose Test Strip See Rx Instructions .Route Qty: 50 12RF Rx Instructions: As directed (DME) lancets [Accu-Chek Softclix Lancets] Misc See Rx Instructions .Route Qty: 100 12RF Rx Instructions: As directed alcohol swabs Pads, Medicated 1 pad TOPICAL TID Qty: 100 12RF aspirin [Adult Aspirin Regimen] 81 mg tablet,delayed release (DR/EC) 81 mg PO DAILY Qty: 90 0RF lorazepam [Ativan] 0.5 mg tablet 0.5 mg PO BID PRN (Reason: anxiety) Qty: 30 0RF leflunomide 20 mg tablet 20 mg PO DAILY Qty: 90 3RF clopidogrel 75 mg tablet 75 mg PO DAILY nicotine 21 mg/24 hr patch 24 hour 21 mg transdermal DAILY Qty: 30 0RF triamcinolone acetonide 0.5 % ointment 1 applic topical BID Qty: 15 1RF cholecalciferol (vitamin D3) 1,250 mcg (50,000 unit) capsule 1,250 mcg PO WEEKLY Qty: 14 0RF cholecalciferol (vitamin D3) 25 mcg (1,000 unit) capsule 25 mcg PO DAILY Qty: 90 3RF lisinopril 10 mg tablet 10 mg PO DAILY Qty: 90 0RF Jardiance 10 mg tablet 10 mg PO DAILY Qty: 90 3RF glipizide 10 mg tablet extended release 24hr 10 mg PO DAILY Qty: 90 3RF atorvastatin [Lipitor] 80 mg tablet 80 mg PO HS Qty: 90 3RF Entresto 24-26 mg tablet See Rx Instructions .ROUTE .COMPLEX Qty: 60 11RF Dose Instruction: TAKE 1 TABLET TWICE A DAY Rx Instructions: TAKE 1 TABLET TWICE A DAY metoprolol succinate [Toprol XL] 25 mg tablet extended release 24 hr 25 mg PO QHS Qty: 90 3RF metformin 500 mg tablet extended release 24 hr See Rx Instructions .ROUTE .COMPLEX Qty: 90 3RF Dose Instruction: TAKE 1 TABLET DAILY Rx Instructions: TAKE 1 TABLET DAILY duloxetine [Cymbalta] 30 mg capsule,delayed release(DR/EC) 30 mg PO DAILY Qty: 90 3RF hydrocodone-acetaminophen 5-325 mg tablet 1 tab PO TID PRN (Reason: pain) Qty: 30 0RF pantoprazole 40 MG tablet,delayed release (DR/EC) 40 mg PO BID Qty: 60 0RF Referrals Follow up/Referrals: Marta Schmitz PA [Primary Care Provider] - See instructions Clinical Impressions Clinical Impression: Coronary artery disease, Pain in left arm Discharge ED Provider: Pedro Owens [facility] [place] HPI General Stated complaint: vomiting, PEREZ, congestion Time Seen by Provider: 10/24/22 16:32 History of Present Illness Provider Complaint: She states that since this morning, she has had episodes of left arm tingling, middle back pain and headache. She has history of cad and carotid stenosis. Related Data Home Medications Medication Instructions Recorded Confirmed clopidogrel 75 mg tablet 75 mg PO DAILY 09/23/22 09/23/22 Previous Rx's Medication Instructions Recorded alcohol swabs 1 pad topical TID #100 ea 10/08/21 blood sugar diagnostic (Blood #50 ea 10/08/21 Glucose Test strips) blood-glucose meter (Blood Glucose #1 ea 10/08/21 Monitoring kit) lancets (Accu-Chek Softclix #100 ea 10/08/21 Lancets) pantoprazole 40 mg tablet,delayed 40 mg PO BID #60 tabs 12/15/21 release aspirin 81 mg tablet,delayed 81 mg PO DAILY #90 tabs 01/07/22 release (Adult Aspirin Regimen) cholecalciferol (vitamin D3) 1,250 1,250 mcg PO WEEKLY #14 caps 01/08/22 mcg (50,000 unit) capsule cholecalciferol (vitamin D3) 25 25 mcg PO DAILY #90 caps 01/08/22 mcg (1,000 unit) capsule lisinopril 10 mg tablet 10 mg PO DAILY #90 tabs 02/08/22 leflunomide 20 mg tablet 20 mg PO DAILY Rapid heart rate 02/11/22 #90 tabs empagliflozin 10 mg tablet 10 mg PO DAILY #90 tabs 02/12/22 (Jardiance) glipizide 10 mg tablet, extended 10 mg PO DAILY #90 tabs 03/11/22 release 24 hr atorvastatin 80 mg tablet (Lipitor) 80 mg PO HS #90
--- NOTE | 2022-10-24 17:07 | PC.NURSE ---
PATIENT SENT TO ER PER Vernon DEE APRN FOR FURTHER EVALUATION. REPORT GIVEN TO Leonel MORALES RN AND Lobo GOODWIN RN
[2022-10-24 17:19] VITALS: PULSE 85; RESP 18; TEMP 36.7; O2SAT 97; BMI 27.1
--- NOTE | 2022-10-24 17:31 | XR_ITS ---
PROCEDURE INFORMATION: Exam: XR Chest Exam date and time: 10/24/2022 6:05 PM Age: 62 years old Clinical indication: Pain; Left-sided; Additional info: Left arm tingling TECHNIQUE: Imaging protocol: Radiologic exam of the chest. Views: 1 view. COMPARISON: CR XR CHEST 2V 02/11/2022 2:39 PM FINDINGS: Lungs: Unremarkable. No consolidation. Pleural spaces: Unremarkable. No pleural effusion. No pneumothorax. Heart/Mediastinum: Unremarkable. No cardiomegaly. Bones/joints: Unremarkable. IMPRESSION: No acute findings.
--- NOTE | 2022-10-24 17:45 | ECG_ITS ---
APPROVED REPORT Exam: Resting ECG HR:56 bpm ECG Measurements Heart Rate 56 AXES SC 143 P 62 QRSd 90 QRS 68 QT 438 T 81 QTc 429 Conclusion SINUS BRADYCARDIA NONSPECIFIC T-WAVE ABNORMALITY BORDERLINE ECG UNCONFIRMED REPORT Electronically signed by : Reginaldo Ramos MD 10/25/2022 16:45:27
[2022-10-24 17:48] VITALS: BP 159/71; PULSE 59; RESP 20; O2SAT 97
[2022-10-24 17:52] LABS: Basophils # 0.1 K/mm3 (0-0.2); Basophils % 1.5 % (0.1-2.0); Eosinophils # 0.3 K/mm3 (0.0-0.4); Eosinophils % 6.7 % (0.1-12.0); Hematocrit 35.6 % (37.0-47.0); Hemoglobin 11.5 g/dL (12.2-16.2); Lymphocytes # 1.8 K/mm3 (0.7-4.5); Lymphocytes % 37.3 % (10-50); Mean Corpuscular HGB Conc 32.3 g/dL (31.8-35.4); Mean Corpuscular Hemoglobin 31.3 pg (27.0-31.2); Mean Corpuscular Volume 97.1 fl (81-99); Mean Platelet Volume 9.1 fl (7.4-10.4); Monocytes # 0.3 K/mm3 (0.1-1.0); Monocytes % 5.2 % (1.7-9.3); Neutrophils # 2.4 K/mm3 (1.8-7.8); Neutrophils % 49.3 % (37.0-80.0); Platelet Count 182 K/mm3 (142-424); Red Blood Count 3.67 M/mm3 (4.20-5.40); Red Cell Distribution Width 13.3 % (11.5-17.5); White Blood Count 4.9 K/mm3 (4.8-10.8)
[2022-10-24 17:55] LABS: Chloride 107 mmol/L (98-107); Potassium 3.6 mmoL/L (3.5-5.1); Sodium 141 mmol/L (136-145)
[2022-10-24 17:58] LABS: Anion Gap 7.6 mEq/L (5-15); Blood Urea Nitrogen 18 mg/dl (7-17); Calcium 9.2 mg/dl (8.4-10.2); Carbon Dioxide 30 mmol/L (22.0-30.0); Creatinine Clearance Estimated 70 mL/min (50-200); Estimated Glomerular Filt Rate 64 ml/min (>60); GFR (African American) 77 ML/MIN (>60); Glucose 124 mg/dl (74-100)
--- NOTE | 2022-10-24 18:16 | HMH.EDGENADL ---
Discharge Plan Disposition Patient Disposition: Home, Self-Care Condition: Good Prescriptions Prescriptions: No Action (DME) blood-glucose meter [Blood Glucose Monitoring] Kit See Rx Instructions .ROUTE .MEDSUPPLY Qty: 1 0RF Rx Instructions: As directed (DME) Blood Glucose Test Strip See Rx Instructions .Route Qty: 50 12RF Rx Instructions: As directed (DME) lancets [Accu-Chek Softclix Lancets] Misc See Rx Instructions .Route Qty: 100 12RF Rx Instructions: As directed alcohol swabs Pads, Medicated 1 pad TOPICAL TID Qty: 100 12RF aspirin [Adult Aspirin Regimen] 81 mg tablet,delayed release (DR/EC) 81 mg PO DAILY Qty: 90 0RF lorazepam [Ativan] 0.5 mg tablet 0.5 mg PO BID PRN (Reason: anxiety) Qty: 30 0RF leflunomide 20 mg tablet 20 mg PO DAILY Qty: 90 3RF clopidogrel 75 mg tablet 75 mg PO DAILY nicotine 21 mg/24 hr patch 24 hour 21 mg transdermal DAILY Qty: 30 0RF triamcinolone acetonide 0.5 % ointment 1 applic topical BID Qty: 15 1RF cholecalciferol (vitamin D3) 1,250 mcg (50,000 unit) capsule 1,250 mcg PO WEEKLY Qty: 14 0RF cholecalciferol (vitamin D3) 25 mcg (1,000 unit) capsule 25 mcg PO DAILY Qty: 90 3RF lisinopril 10 mg tablet 10 mg PO DAILY Qty: 90 0RF Jardiance 10 mg tablet 10 mg PO DAILY Qty: 90 3RF glipizide 10 mg tablet extended release 24hr 10 mg PO DAILY Qty: 90 3RF atorvastatin [Lipitor] 80 mg tablet 80 mg PO HS Qty: 90 3RF Entresto 24-26 mg tablet See Rx Instructions .ROUTE .COMPLEX Qty: 60 11RF Dose Instruction: TAKE 1 TABLET TWICE A DAY Rx Instructions: TAKE 1 TABLET TWICE A DAY metoprolol succinate [Toprol XL] 25 mg tablet extended release 24 hr 25 mg PO QHS Qty: 90 3RF metformin 500 mg tablet extended release 24 hr See Rx Instructions .ROUTE .COMPLEX Qty: 90 3RF Dose Instruction: TAKE 1 TABLET DAILY Rx Instructions: TAKE 1 TABLET DAILY duloxetine [Cymbalta] 30 mg capsule,delayed release(DR/EC) 30 mg PO DAILY Qty: 90 3RF hydrocodone-acetaminophen 5-325 mg tablet 1 tab PO TID PRN (Reason: pain) Qty: 30 0RF pantoprazole 40 MG tablet,delayed release (DR/EC) 40 mg PO BID Qty: 60 0RF Referrals Follow up/Referrals: Marta Schmitz PA [Primary Care Provider] - See instructions Activity Restrictions/Add. Instructions Additional Instructions/Restrictions: Call Dr. Aviles's office tomorrow to make appointment to be seen, earliest available appointment. Return to the emergency department if symptoms are worsening in intensity or becoming more prolonged, or new symptoms such as chest pain. Clinical Impressions Clinical Impression: Back pain, Arm paresthesia, left, Vomiting Discharge ED Provider: Pedro Owens [facility] HPI General Chief complaint: Extremity Problem,Nontraumatic Stated complaint: vomiting, PEREZ, congestion Time Seen by Provider: 10/24/22 16:32 Mode of Arrival: Ambulatory Source of Information: Patient Limitations: No Limitations Description of Symptoms (Recalled from ER Triage Doc. by RN): Patient reports left arm tingling, pain between shoulder blades and headaches that come and go x1 week. Patient reports she vomited three times today from her headache. Patient reports she had a stent placed back in february by Dr. Aviles. Patient has a vascular appt in november at for blockages that she has on both sides of her neck. History of Present Illness HPI narrative: The patient is sent from the urgent treatment center for a cardiac work-up . Patient states that for 1 week she has had about 2 episodes a day where she gets a sharp pain right in the middle of her back between her shoulder blades associated with tingling of her left arm, shortness of breath, and nausea. No diaphoresis. Episodes last a few minutes at a time. Her most recent episode was when she was on her way from the urgent treatment center
[2022-10-24 18:19] LABS: Troponin I < 0.01 ng/ml (0.00-0.034)
[2022-10-24 18:59] VITALS: BP 150/70; PULSE 60; RESP 18; TEMP 36.6; O2SAT 97
== END 2022-10-24 19:01 | disposition home or self-care (01) ==
LOC: UTC 15:08 → ER 17:08
PROVIDERS: Emergency Medicine; Emergency Provider Nurse Practitioner Family; PCP Physician Assistant
DX: M54.6 Pain in thoracic spine (principal); R06.02 Shortness of breath; M50.30 Other cervical disc degeneration, unspecified cervical region; M79.602 Pain in left arm; R94.31 Abnormal electrocardiogram [ECG] [EKG]; R20.2 Paresthesia of skin; R00.1 Bradycardia, unspecified; R51.9 Headache, unspecified; R11.2 Nausea with vomiting, unspecified; E55.9 Vitamin D deficiency, unspecified; I50.9 Heart failure, unspecified; I25.10 Atherosclerotic heart disease of native coronary artery without angina pectoris; E78.5 Hyperlipidemia, unspecified; F32.A Depression, unspecified; F17.210 Nicotine dependence, cigarettes, uncomplicated; Z79.1 Long term (current) use of non-steroidal anti-inflammatories (NSAID); Z79.02 Long term (current) use of antithrombotics/antiplatelets; Z79.82 Long term (current) use of aspirin; Z79.84 Long term (current) use of oral hypoglycemic drugs; Z79.899 Other long term (current) drug therapy; Z95.5 Presence of coronary angioplasty implant and graft
CPT/HCPCS: 71045; 80048; 84484; 85025; 93005; 99285

== ENCOUNTER → 2023-01-27 12:34 | Outpatient (CLI) | payer OTHER, SELFPAY ==
--- NOTE | 2023-01-27 12:36 | CA_ITS ---
FINAL REPORT CLINICAL HISTORY: RODRIGUEZ,SMOKER,DM FINDINGS: An ultrasound of the carotid arteries was performed. Duplex Doppler evaluation with spectral analysis was performed. The peak systolic velocity of the right common carotid artery is 79 cm/s. The peak systolic velocity of the right internal carotid artery is 188 cm/s and end diastolic velocity 49 cm/s. A small amount of plaque is present. The right external carotid artery is patent. The right vertebral artery is patent with antegrade flow. ICA/CCA ratio: 2.8 The peak systolic velocity of the left common carotid artery is 91 cm/s. The peak systolic velocity of the left internal carotid artery is 155 cm/s and end diastolic velocity 38 cm/s. A mild to moderate amount of plaque is present. The left external carotid artery is patent. The left vertebral artery is patent with antegrade flow. ICA/CCA ratio: 1.9 Bilateral patent vertebral arteries with antegrade flow. IMPRESSION: 50-69% stenosis of the right carotid artery. Less than 50% stenosis of the left carotid artery. Reviewed, Interpreted and Dictated by Alonso Yu MD Transcribed by Carlos Lackey Authenticated and [facility]
== END ==
LOC: RT 12:34
PROVIDERS: PCP Physician Assistant; Visit Provider Physician Assistant
DX: I65.23 Occlusion and stenosis of bilateral carotid arteries (principal)
CPT/HCPCS: 93880

== ENCOUNTER 2023-03-25 16:26 | Emergency (ER) | payer OTHER, SELFPAY ==
[2023-03-25 16:38] VITALS: BP 141/50; PULSE 69; RESP 20; TEMP 36.9; O2SAT 97; BMI 23.8
--- NOTE | 2023-03-25 16:59 | EXP.UTC ---
Discharge Plan Disposition Patient Disposition: Home, Self-Care Condition: Good Prescriptions Prescriptions: No Action (DME) lancets [Accu-Chek Softclix Lancets] Misc See Rx Instructions .Route Qty: 100 12RF Rx Instructions: As directed alcohol swabs Pads, Medicated 1 pad TOPICAL TID Qty: 100 12RF aspirin [Adult Aspirin Regimen] 81 mg tablet,delayed release (DR/EC) 81 mg PO DAILY Qty: 90 0RF lorazepam [Ativan] 0.5 mg tablet 0.5 mg PO BID PRN (Reason: anxiety) Qty: 30 0RF metformin 500 mg tablet extended release 24 hr 500 mg PO BID Qty: 180 3RF clopidogrel 75 mg tablet 75 mg PO DAILY nicotine 21 mg/24 hr patch 24 hour 21 mg transdermal DAILY Qty: 30 0RF triamcinolone acetonide 0.5 % ointment 1 applic topical BID Qty: 15 1RF cholecalciferol (vitamin D3) 1,250 mcg (50,000 unit) capsule 1,250 mcg PO WEEKLY Qty: 14 0RF cholecalciferol (vitamin D3) 25 mcg (1,000 unit) capsule 25 mcg PO DAILY Qty: 90 3RF lisinopril 10 mg tablet 10 mg PO DAILY Qty: 90 0RF glipizide 10 mg tablet extended release 24hr 10 mg PO DAILY Qty: 90 3RF Entresto 24-26 mg tablet See Rx Instructions .ROUTE .COMPLEX Qty: 60 11RF Dose Instruction: TAKE 1 TABLET TWICE A DAY Rx Instructions: TAKE 1 TABLET TWICE A DAY metoprolol succinate [Toprol XL] 25 mg tablet extended release 24 hr 25 mg PO QHS Qty: 90 3RF duloxetine [Cymbalta] 30 mg capsule,delayed release(DR/EC) 30 mg PO DAILY Qty: 90 3RF Jardiance 10 mg tablet See Rx Instructions .ROUTE .COMPLEX Qty: 90 3RF Dose Instruction: TAKE 1 TABLET DAILY Rx Instructions: TAKE 1 TABLET DAILY leflunomide 20 mg tablet See Rx Instructions .ROUTE .COMPLEX Qty: 90 3RF Dose Instruction: TAKE 1 TABLET DAILY FOR RAPID HEART RATE Rx Instructions: TAKE 1 TABLET DAILY FOR RAPID HEART RATE (DME) Blood Glucose Test Strip See Rx Instructions .Route Qty: 50 12RF Rx Instructions: As directed (DME) blood-glucose meter [Blood Glucose Monitoring] Kit See Rx Instructions .ROUTE .MEDSUPPLY Qty: 1 0RF Rx Instructions: As directed hydrocodone-acetaminophen 5-325 mg tablet 1 tab PO TID PRN (Reason: pain) Qty: 30 0RF atorvastatin 80 mg tablet See Rx Instructions .ROUTE .COMPLEX Qty: 90 3RF Dose Instruction: TAKE 1 TABLET AT BEDTIME Rx Instructions: TAKE 1 TABLET AT BEDTIME pantoprazole 40 MG tablet,delayed release (DR/EC) 40 mg PO BID Qty: 60 0RF Referrals Follow up/Referrals: Marta Schmitz PA [Primary Care Provider] - See instructions Clarice Hanna DPM [Staff Physician] - See instructions Activity Restrictions/Add. Instructions Additional Instructions/Restrictions: Rest the extremity, apply ice for 15 minutes as tolerated three or four times per day, Wear the julianna wrap for compression, Elevate the extremity as tolerated while you are resting. Take ibuprofen for pain. Follow up with Dr. Hanna (podiatry). Sometimes there can be fractures that don't show up well on the first set of x-rays. So, you should follow up if you continue to have symptoms. I put in a referral but you need to call her office and schedule an appointment. Follow up with your regular doctor. GO TO THE ER FOR ANY WORSENING SYMPTOMS Clinical Impressions Clinical Impression: Sprain of ankle, right Stand Alone Forms Stand Alone Forms: Work/School Release Instructions Patient Instructions: Ankle Sprain, DI for Ankle Sprain Discharge ED Provider: Pedro Owens [facility] [place] HPI General Stated complaint: AO 03/25@1100@home injured R Ankle Mode of Arrival: Ambulatory Source of Information: Patient Limitations: No Limitations Time Seen by Provider: 03/25/23 16:47 Description of Symptoms (Recalled from Triage Doc. by RN): pt states she rolled her R ankle today. pt refuses an xray. HEENT Symptoms (Recalled from RN notes): No Resp Symptoms
[2023-03-25 17:46] VITALS: BP 141/50; PULSE 69; RESP 20; TEMP 36.9
== END 2023-03-25 17:46 | disposition home or self-care (01) ==
PROVIDERS: Emergency Provider Nurse Practitioner Family; PCP Physician Assistant
DX: S93.401A Sprain of unspecified ligament of right ankle, initial encounter (principal); F17.210 Nicotine dependence, cigarettes, uncomplicated; E11.9 Type 2 diabetes mellitus without complications; E78.5 Hyperlipidemia, unspecified; Z79.84 Long term (current) use of oral hypoglycemic drugs; X50.0XXA Overexertion from strenuous movement or load, initial encounter
CPT/HCPCS: 99212; 99214; G0463

== ENCOUNTER 2023-04-16 08:22 | Emergency (ER) | payer OTHER, SELFPAY ==
[2023-04-16 08:22] VITALS: BP 163/52; PULSE 74; RESP 16; TEMP 36.7; O2SAT 98; BMI 25.6
--- NOTE | 2023-04-16 08:38 | EXP.UTC ---
Discharge Plan Disposition Patient Disposition: Home, Self-Care Condition: Good Prescriptions Prescriptions: New ciprofloxacin HCl 0.3 % drops See Rx Instructions .ROUTE .COMPLEX Qty: 5 0RF Rx Instructions: put 1 drp in both eyes every 2hr x2days; then 4 times/day x5days No Action (DME) lancets [Accu-Chek Softclix Lancets] Misc See Rx Instructions .Route Qty: 100 12RF Rx Instructions: As directed alcohol swabs Pads, Medicated 1 pad TOPICAL TID Qty: 100 12RF aspirin [Adult Aspirin Regimen] 81 mg tablet,delayed release (DR/EC) 81 mg PO DAILY Qty: 90 0RF lorazepam [Ativan] 0.5 mg tablet 0.5 mg PO BID PRN (Reason: anxiety) Qty: 30 0RF metformin 500 mg tablet extended release 24 hr 500 mg PO BID Qty: 180 3RF clopidogrel 75 mg tablet 75 mg PO DAILY nicotine 21 mg/24 hr patch 24 hour 21 mg transdermal DAILY Qty: 30 0RF triamcinolone acetonide 0.5 % ointment 1 applic topical BID Qty: 15 1RF cholecalciferol (vitamin D3) 1,250 mcg (50,000 unit) capsule 1,250 mcg PO WEEKLY Qty: 14 0RF cholecalciferol (vitamin D3) 25 mcg (1,000 unit) capsule 25 mcg PO DAILY Qty: 90 3RF lisinopril 10 mg tablet 10 mg PO DAILY Qty: 90 0RF glipizide 10 mg tablet extended release 24hr 10 mg PO DAILY Qty: 90 3RF Entresto 24-26 mg tablet See Rx Instructions .ROUTE .COMPLEX Qty: 60 11RF Dose Instruction: TAKE 1 TABLET TWICE A DAY Rx Instructions: TAKE 1 TABLET TWICE A DAY metoprolol succinate [Toprol XL] 25 mg tablet extended release 24 hr 25 mg PO QHS Qty: 90 3RF duloxetine [Cymbalta] 30 mg capsule,delayed release(DR/EC) 30 mg PO DAILY Qty: 90 3RF Jardiance 10 mg tablet See Rx Instructions .ROUTE .COMPLEX Qty: 90 3RF Dose Instruction: TAKE 1 TABLET DAILY Rx Instructions: TAKE 1 TABLET DAILY leflunomide 20 mg tablet See Rx Instructions .ROUTE .COMPLEX Qty: 90 3RF Dose Instruction: TAKE 1 TABLET DAILY FOR RAPID HEART RATE Rx Instructions: TAKE 1 TABLET DAILY FOR RAPID HEART RATE (DME) Blood Glucose Test Strip See Rx Instructions .Route Qty: 50 12RF Rx Instructions: As directed (DME) blood-glucose meter [Blood Glucose Monitoring] Kit See Rx Instructions .ROUTE .MEDSUPPLY Qty: 1 0RF Rx Instructions: As directed hydrocodone-acetaminophen 5-325 mg tablet 1 tab PO TID PRN (Reason: pain) Qty: 30 0RF atorvastatin 80 mg tablet See Rx Instructions .ROUTE .COMPLEX Qty: 90 3RF Dose Instruction: TAKE 1 TABLET AT BEDTIME Rx Instructions: TAKE 1 TABLET AT BEDTIME pantoprazole 40 MG tablet,delayed release (DR/EC) 40 mg PO BID Qty: 60 0RF Referrals Follow up/Referrals: Marta Schmitz PA [Primary Care Provider] - See instructions Activity Restrictions/Add. Instructions Additional Instructions/Restrictions: Use the eye drops as directed. Strict hand washing in the house hold, because conjunctivitis is very contagious. Follow up with your regular doctor. GO TO THE ER FOR ANY WORSENING SYMPTOMS OR CONCERNS Clinical Impressions Clinical Impression: Bilateral conjunctivitis Stand Alone Forms Stand Alone Forms: Work/School Release Instructions Patient Instructions: Conjunctivitis, DI for Conjunctivitis Discharge ED Provider: Pedro Owens [facility] General Stated complaint: Eye redness w/drainage Mode of Arrival: Ambulatory Source of Information: Patient Limitations: No Limitations Time Seen by Provider: 04/16/23 08:38 Description of Symptoms (Recalled from Triage Doc. by RN): Complaint of possible pink eye in both eyes that started yesterday. HEENT Symptoms (Recalled from RN notes): Yes Resp Symptoms (Recalled from RN notes): No Skin Symptoms (Recalled from RN notes): No MS Symptoms (Recalled from RN notes): No Functional Status (Recalled from RN notes): wnl History of Present Illness Provider Complaint: She
[2023-04-16 09:06] VITALS: BP 163/52; PULSE 74; RESP 16; TEMP 36.7; O2SAT 98
== END 2023-04-16 09:10 | disposition home or self-care (01) ==
PROVIDERS: Emergency Provider Nurse Practitioner Family; PCP Physician Assistant
DX: H10.33 Unspecified acute conjunctivitis, bilateral (principal); F17.210 Nicotine dependence, cigarettes, uncomplicated; E11.9 Type 2 diabetes mellitus without complications; I11.0 Hypertensive heart disease with heart failure; I50.9 Heart failure, unspecified; E78.5 Hyperlipidemia, unspecified; M06.9 Rheumatoid arthritis, unspecified; F32.A Depression, unspecified; Z79.84 Long term (current) use of oral hypoglycemic drugs
CPT/HCPCS: 99212; 99214; G0463

== ENCOUNTER 2023-09-25 09:52 | Emergency (ER) | payer OTHER, SELFPAY ==
--- OUTSIDE RECORDS SUMMARY | 2023-09-25 09:55 | XMS_ITS | Continuity of Care Document ---
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 for 3 days, 3 tablets q.a.m. for 3 days, 2 tablets q.a.m. for 3 days, 1 tablet q.a.m. for 3 days - Active Humira(CF) Pen 40 mg/0.4 mL subcutaneous kit inject 0.4 milliliter by subcutaneous route every 2 weeks in the abdomen or thigh (rotate sites) 40 MG - No Longer Active Failed NSAIDS, Prednisone, Methotrexate QTB/Hep pending Procedures Procedure Date TB AG RESPONSE T-CELL SUSP Office Visit Level IV Dena
[2023-09-25 10:30] VITALS: BP 147/63; PULSE 78; RESP 20; TEMP 36.8; O2SAT 96; BMI 27.7
--- NOTE | 2023-09-25 10:51 | EXP.UTC ---
Discharge Plan Disposition Patient Disposition: Home, Self-Care Condition: Good Prescriptions Prescriptions: New ondansetron 4 mg tablet,disintegrating 4 mg PO Q8H PRN (Reason: nausea and vomiting) Qty: 10 0RF No Action (DME) lancets [Accu-Chek Softclix Lancets] Misc See Rx Instructions .Route Qty: 100 12RF Rx Instructions: As directed alcohol swabs Pads, Medicated 1 pad TOPICAL TID Qty: 100 12RF aspirin [Adult Aspirin Regimen] 81 mg tablet,delayed release (DR/EC) 81 mg PO DAILY Qty: 90 0RF lorazepam [Ativan] 0.5 mg tablet 0.5 mg PO BID PRN (Reason: anxiety) Qty: 30 0RF metformin 500 mg tablet extended release 24 hr 500 mg PO BID Qty: 180 3RF clopidogrel 75 mg tablet 75 mg PO DAILY Qty: 90 1RF prednisone 20 mg tablet 20 mg PO DAILY Qty: 18 0RF Rx Instructions: TID X 3 days, BID X 3 days, QD X 3 days duloxetine [Cymbalta] 60 mg capsule,delayed release(DR/EC) 60 mg PO DAILY Qty: 90 3RF pregabalin [Lyrica] 75 mg capsule 75 mg PO BID Qty: 60 2RF triamcinolone acetonide 0.5 % ointment 1 applic topical BID Qty: 15 1RF cholecalciferol (vitamin D3) 1,250 mcg (50,000 unit) capsule 1,250 mcg PO WEEKLY Qty: 14 0RF cholecalciferol (vitamin D3) 25 mcg (1,000 unit) capsule 25 mcg PO DAILY Qty: 90 3RF metoprolol succinate [Toprol XL] 25 mg tablet extended release 24 hr 25 mg PO QHS Qty: 90 3RF Jardiance 10 mg tablet See Rx Instructions .ROUTE .COMPLEX Qty: 90 3RF Dose Instruction: TAKE 1 TABLET DAILY Rx Instructions: TAKE 1 TABLET DAILY leflunomide 20 mg tablet See Rx Instructions .ROUTE .COMPLEX Qty: 90 3RF Dose Instruction: TAKE 1 TABLET DAILY FOR RAPID HEART RATE Rx Instructions: TAKE 1 TABLET DAILY FOR RAPID HEART RATE (DME) Blood Glucose Test Strip See Rx Instructions .Route Qty: 50 12RF Rx Instructions: As directed (DME) blood-glucose meter [Blood Glucose Monitoring] Kit See Rx Instructions .ROUTE .MEDSUPPLY Qty: 1 0RF Rx Instructions: As directed atorvastatin 80 mg tablet See Rx Instructions .ROUTE .COMPLEX Qty: 90 3RF Dose Instruction: TAKE 1 TABLET AT BEDTIME Rx Instructions: TAKE 1 TABLET AT BEDTIME Entresto 24-26 mg tablet See Rx Instructions .ROUTE .COMPLEX Qty: 180 3RF Dose Instruction: TAKE 1 TABLET TWICE A DAY Rx Instructions: TAKE 1 TABLET TWICE A DAY hydrocodone-acetaminophen 5-325 mg tablet 1 tab PO TID PRN (Reason: pain) Qty: 60 0RF (DME) FreeStyle Lenny 2 [place] Misc See Rx Instructions .Route Qty: 1 0RF Rx Instructions: As directed (DME) FreeStyle Lenny 3 Sensor Device See Rx Instructions .Route Qty: 3 1RF Rx Instructions: As directed pantoprazole 40 MG tablet,delayed release (DR/EC) 40 mg PO BID Qty: 60 0RF Referrals Follow up/Referrals: Marta Schmitz PA [Primary Care Provider] - See instructions Activity Restrictions/Add. Instructions Additional Instructions/Restrictions: *Monitor Temp, Over the counter Motrin or Tylenol as directed/as needed Tylenol every 4 hours and Motrin every 6 hours (as long as your family doctor has told you that you can take it) for fever or pain. and straight to ER if unable to lower temp less than 101.0 after medication given *Warm salt water gargles may help to soothe the throat *Throat Lozenges? *Warm fluids like tea with honey may help to soothe the throat? *Sleep elevated *Humidifier/Vaporizer *Flonase 2 sprays in each nostril daily but be aware that it may take 2-3 days before you notice improvement *Bromfed may cause drowsiness. Know how it effects you (your child) before driving, caring for small child, or sending your child to school. Not other antihistamines/allergy medications while taking bromfed Your throat swab was sent for culture. Those results are typically sent to your prim
[2023-09-25 10:57] LABS: UTC Influenza A Antigen Negative (Negative); UTC Influenza B Antigen Negative (Negative)
[2023-09-25 11:14] VITALS: BP 147/63; PULSE 78; RESP 20; TEMP 36.8; O2SAT 96
== END 2023-09-25 11:20 | disposition home or self-care (01) ==
PROVIDERS: Emergency Provider Nurse Practitioner; PCP Physician Assistant
DX: R10.9 Unspecified abdominal pain (principal); R11.2 Nausea with vomiting, unspecified; R19.7 Diarrhea, unspecified; R51.9 Headache, unspecified; R68.83 Chills (without fever); F17.210 Nicotine dependence, cigarettes, uncomplicated; I25.10 Atherosclerotic heart disease of native coronary artery without angina pectoris; I11.0 Hypertensive heart disease with heart failure; I50.9 Heart failure, unspecified; E78.5 Hyperlipidemia, unspecified; E11.40 Type 2 diabetes mellitus with diabetic neuropathy, unspecified; I65.23 Occlusion and stenosis of bilateral carotid arteries; M06.9 Rheumatoid arthritis, unspecified; Z79.84 Long term (current) use of oral hypoglycemic drugs; B34.9 Viral infection, unspecified
CPT/HCPCS: 87635; 87804; 99212; 99214; G0463

== ENCOUNTER 2024-01-26 11:10 | Outpatient (CLI) | payer OTHER, SELFPAY ==
--- NOTE | 2024-01-26 11:12 | XR_ITS ---
FINAL REPORT CLINICAL HISTORY: Right foot pain COMPARISON: None FINDINGS: RIGHT FOOT: Three views of the right foot were obtained. There is no acute fracture or dislocation. There is a chronic fracture of the 2nd and 3rd metatarsals. There is mild degenerative change of the 1st MTP. Hallux valgus deformity is noted. Posterior calcaneal spur is noted. There is no soft tissue abnormality. IMPRESSION: Chronic and degenerative changes without acute bony abnormality. Reviewed, Interpreted and Dictated by Jluis Lee III, MD Transcribed by Stephanie Barragan Authenticated and [facility]
--- NOTE | 2024-01-26 11:12 | XR_ITS ---
FINAL REPORT CLINICAL HISTORY: left foot pain COMPARISON: None FINDINGS: LEFT FOOT: Three views of the left foot were obtained. There is no acute fracture or dislocation. There is subacute to chronic fracture of the 2nd metatarsal distally with callus formation. 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 There is moderate degenerative change of the 1st MTP. There is mild hallux valgus deformity. There is no soft tissue abnormality. IMPRESSION: Chronic and degenerative changes without acute bony abnormality. Reviewed, Interpreted and Dictated by Jluis Lee III, MD Transcribed by Stephanie Barragan Authenticated and [facility]
== END 2024-01-26 23:59 ==
LOC: RAD 11:11
PROVIDERS: PCP Physician Assistant; Visit Provider Physician Assistant
DX: M79.672 Pain in left foot (principal); M79.671 Pain in right foot
CPT/HCPCS: 73630

== ENCOUNTER 2024-02-02 10:45 | Outpatient (CLI) | payer OTHER, SELFPAY ==
--- NOTE | 2024-02-02 | US_ITS ---
FINAL REPORT CLINICAL HISTORY: DECREASED PEDAL PULSES,DM,CLAUDICATION,DINAH REST PAIN,SMOKER,HTN,HLD COMPARISON: None FINDINGS: ANKLE-BRACHIAL PRESSURE INDICES Pressure indices are as follows: RIGHT LOWER EXTREMITY: Ankle-brachial pressure index: 1.0 Comments: Normal LEFT LOWER EXTREMITY: Ankle-brachial pressure index: 1.0 Comments: Normal IMPRESSION: No evidence of significant obstructive peripheral vascular disease of the lower extremities Reviewed, Interpreted and Dictated by Oneida Barbosa MD Transcribed by Stephanie Barragan Authenticated and [facility]
== END 2024-02-02 23:59 ==
LOC: RT 10:46
PROVIDERS: PCP Physician Assistant; Visit Provider Podiatrist
DX: R09.89 Other specified symptoms and signs involving the circulatory and respiratory systems (principal); M79.604 Pain in right leg; M79.605 Pain in left leg
CPT/HCPCS: 93923

== ENCOUNTER 2024-02-02 11:58 | Emergency (ER) | payer OTHER, SELFPAY ==
[2024-02-02] VITALS (9 sets, daily range): BP systolic 132–196; BP diastolic 72–107; PULSE 64–76; RESP 16; TEMP 36.9; O2SAT 96–99; BMI 26.0
--- NOTE | 2024-02-02 12:19 | ECG_ITS ---
APPROVED REPORT Exam: Resting ECG HR:70 bpm ECG Measurements Heart Rate 70 AXES MI 133 P 84 QRSd 81 QRS 86 QT 408 T 82 QTc 429 Conclusion SINUS RHYTHM NORMAL ECG Electronically signed by : CATHY CABRAL, 02/02/2024 15:54:08
[2024-02-02 13:48] LABS: Basophils # 0.1 K/mm3 (0-0.2); Basophils % 1.2 % (0.1-2.0); Eosinophils # 0.2 K/mm3 (0.0-0.4); Eosinophils % 3.9 % (0.1-12.0); Hematocrit 42.3 % (37.0-47.0); Hemoglobin 13.8 g/dL (12.2-16.2); Lymphocytes # 1.4 K/mm3 (0.7-4.5); Lymphocytes % 25.5 % (10-50); Mean Corpuscular HGB Conc 32.6 g/dL (31.8-35.4); Mean Corpuscular Hemoglobin 32.1 pg (27.0-31.2); Mean Corpuscular Volume 98.3 fl (81-99); Mean Platelet Volume 9.6 fl (7.4-10.4); Monocytes # 0.3 K/mm3 (0.1-1.0); Monocytes % 5.4 % (1.7-9.3); Neutrophils # 3.6 K/mm3 (1.8-7.8); Platelet Count 174 K/mm3 (142-424); Red Cell Distribution Width 13.6 % (11.5-17.5); White Blood Count 5.7 K/mm3 (4.8-10.8)
[2024-02-02 13:49] LABS: Chloride 107 mmol/L (98-107); Potassium 3.7 mmoL/L (3.5-5.1); Sodium 140 mmol/L (136-145)
[2024-02-02 13:51] LABS: Blood Urea Nitrogen 13 mg/dl (7-17); Creatinine Clearance Estimated 62 mL/min (50-200); Estimated Glomerular Filt Rate 73 ml/min (>60); GFR (African American) 88 ML/MIN (>60)
[2024-02-02 13:52] LABS: Alanine Aminotransferase 15 U/L (12-78); Albumin/Globulin Ratio 1.2 (1.1-1.8); Alkaline Phosphatase 97 U/L (38-126); Anion Gap 3.7 mEq/L (5-15); Aspartate Amino Transferase 26 U/L (14-36); Bilirubin,Total 0.5 mg/dl (0.2-1.3); Calcium 9.4 mg/dl (8.4-10.2); Carbon Dioxide 33 mmol/L (22.0-30.0); Globulin 3.4 g/dL (1.3-3.2); Glucose 121 mg/dl (74-100); Total Protein,Serum 7.4 g/dl (6.3-8.2)
[2024-02-02] MEDS: KETOROLAC 30MG/ML VIAL 15 MG IV (13:52)
[2024-02-02] MEDS: ACETAMINOPHEN 500MG TAB 1000 MG PO (13:53)
--- NOTE | 2024-02-02 14:05 | ED_ITS ---
Discharge Plan Disposition Patient Disposition: Home, Self-Care Condition: Good Prescriptions Prescriptions: No Action (DME) lancets [Accu-Chek Softclix Lancets] Misc See Rx Instructions .Route Qty: 100 12RF Rx Instructions: As directed alcohol swabs Pads, Medicated 1 pad TOPICAL TID Qty: 100 12RF aspirin [Adult Aspirin Regimen] 81 mg tablet,delayed release (DR/EC) 81 mg PO DAILY Qty: 90 0RF (DME) FreeStyle Lenny 3 Sensor Device See Rx Instructions .Route Qty: 3 3RF Rx Instructions: As directed Vraylar 1.5 mg capsule 1.5 mg PO DAILY Qty: 30 2RF olanzapine [Zyprexa] 2.5 mg tablet 2.5 mg PO HS Qty: 30 2RF diazepam [Valium] 5 mg tablet 5 mg PO BID PRN (Reason: anxiety) Qty: 20 0RF venlafaxine [Effexor XR] 75 mg capsule,extended release 24hr 75 mg PO DAILY Qty: 30 2RF leflunomide 20 mg tablet See Rx Instructions .ROUTE .COMPLEX Qty: 90 3RF Dose Instruction: TAKE 1 TABLET DAILY FOR RAPID HEART RATE Rx Instructions: TAKE 1 TABLET DAILY FOR RAPID HEART RATE metoprolol succinate [Toprol XL] 50 mg tablet extended release 24 hr 50 mg PO DAILY Qty: 30 2RF Entresto 24-26 mg tablet See Rx Instructions .ROUTE .COMPLEX Qty: 180 3RF Dose Instruction: TAKE 1 TABLET TWICE A DAY Rx Instructions: TAKE 1 TABLET TWICE A DAY Januvia 100 mg tablet 100 mg PO QDAY 90 Days Qty: 90 0RF hydrocodone-acetaminophen 5-325 mg tablet 1 tab PO Q8H PRN (Reason: pain) Qty: 60 0RF (DME) Blood Glucose Test Strip See Rx Instructions .Route Qty: 50 12RF Rx Instructions: As directed (DME) blood-glucose meter [Blood Glucose Monitoring] Kit See Rx Instructions .ROUTE .MEDSUPPLY Qty: 1 0RF Rx Instructions: As directed atorvastatin 80 mg tablet See Rx Instructions .ROUTE .COMPLEX Qty: 90 3RF Dose Instruction: TAKE 1 TABLET AT BEDTIME Rx Instructions: TAKE 1 TABLET AT BEDTIME metformin 500 mg tablet extended release 24 hr See Rx Instructions .ROUTE .COMPLEX Qty: 180 0RF Dose Instruction: TAKE 1 TABLET BY MOUTH TWICE DAILY Rx Instructions: TAKE 1 TABLET BY MOUTH TWICE DAILY gabapentin 100 mg capsule 100 mg PO Q8H Qty: 90 0RF ondansetron 4 mg tablet,disintegrating 4 mg PO Q8H PRN (Reason: nausea and vomiting) Qty: 10 0RF pantoprazole 40 MG tablet,delayed release (DR/EC) 40 mg PO BID Qty: 60 0RF Referrals Follow up/Referrals: Marta Schmitz PA [Primary Care Provider] - See instructions Activity Restrictions/Add. Instructions Additional Instructions/Restrictions: You were evaluated in the emergency department today. At this time, your blood pressure is reassuring and there is no indication for me to change it from the emergency department. Please follow-up closely with your primary care provider. I recommend keeping a log of your blood pressures and taking it at least 3 times a day, morning, afternoon, and night. If you need blood pressure medication adjustments, your primary care provider can make these adjustments. Return to the emergency department for new or worsening symptoms, such as significant worsening in headache, consistent blood pressure readings greater than 200 systolic, or other concerns. Clinical Impressions Clinical Impression: HBP (high blood pressure), Headache Instructions Patient Instructions: DI for High Blood Pressure, DI for Headache Discharge ED Provider: Viji Smith General Adult HPI General Chief complaint: Recheck/Abnormal Lab/Rx Stated complaint: elevated bp Time Seen by Provider: 02/02/24 13:12 Mode of Arrival: Ambulatory Limitations: No Limitations Description of Symptoms (Recalled from ER Triage Doc. by RN): pt states her pcp told her to come have an evaluation for HTN. pt states her BP was 197/102 [employer]OXING [employer], her HTN medications were taken earlier this am. pt c/o a sharp/throbbing PEREZ that radiates across her forehead and is a 7/10. pt also c/o throbbing in my L arm. History of Present Illness HPI narrative: This patient is a 63-year-old female with a history of hypertension, hyperlipidemia, and rheumatoid arthritis presenting to the emergency department for evaluation with concern for high blood pressure. According to the patient, she went for an outpatient procedure and was found to have high blood pressure. She went to her PCPs office and had her blood pressure checked again, and it was still high. She notes systolics was in the 190s to 200s. She states that she is also had a sharp throbbing headache that goes across her forehead and is 7 out of 10. She also has throbbing in her left arm. She states the headache usually comes when her blood pressure is high. She denies any vision changes, numbness, tingling, weakness, or other concerns. No fevers or infectious symptoms. She did take her blood pressure medications today. On my initial assessment, systolics in the 140s and patient is overall feeling better. Related Data Previous Rx's Medication Instructions Recorded alcohol swabs 1 pad topical TID #100 ea 10/08/21 lancets (Accu-Chek Softclix #100 ea 10/08/21 Lancets) pantoprazole 40 mg tablet,delayed 40 mg PO BID #60 tabs 12/15/21 release aspirin 81 mg tablet,delayed 81 mg PO DAILY #90 tabs 01/07/22 release (Adult Aspirin Regimen) blood sugar diagnostic (Blood #50 ea 01/24/23 Glucose Test strips) blood-glucose meter (Blood Glucose #1 ea 01/24/23 Monitoring kit) atorvastatin 80 mg tablet See Rx Instructions .Route 03/19/23 .COMPLEX #90 tabs ondansetron 4 mg disintegrating 4 mg PO Q8H PRN nausea and 09/25/23 tablet vomiting #10 tabs leflunomide 20 mg tablet See Rx Instructions .Route 12/23/23 .COMPLEX #90 tabs metoprolol succinate 50 mg 50 mg PO DAILY #30 tabs 12/23/23 tablet,extended release 24 hr (Toprol XL) sacubitril 24 mg-valsartan 26 mg See Rx Instructions .Route 12/23/23 tablet (Entresto) .COMPLEX #180 tabs sitagliptin phosphate 100 mg 100 mg PO QDAY 90 days #90 tabs 12/23/23 tablet (Januvia) diazepam 5 mg tablet (Valium) 5 mg PO BID PRN anxiety #20 tabs 12/25/23 olanzapine 2.5 mg tablet (Zyprexa) 2.5 mg PO HS #30 tabs 12/25/23 venlafaxine 75 mg capsule,extended 75 mg PO DAILY #30 caps 12/25/23 release 24 hr (Effexor XR) hydrocodone 5 mg-acetaminophen 325 1 tab PO Q8H PRN pain #60 tabs 12/26/23 mg tablet metformin 500 mg tablet,extended See Rx Instructions .Route 01/08/24 release 24 hr .COMPLEX #180 tabs gabapentin 100 mg capsule 100 mg PO Q8H #90 caps 01/19/24 blood-glucose sensor (FreeStyle #3 ea 01/26/24 Lenny 3 Sensor device) cariprazine 1.5 mg capsule 1.5 mg PO DAILY #30 caps 01/26/24 (Vraylar) Allergies Allergy/AdvReac Type Severity Reaction Status Date / Time No Known Allergies Allergy Verified 01/27/24 13:40 [facility] Disclaimer: The information contained in this section may have been updated after the patient was seen, as this information can be updated by other users. 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 Numbness and tingling in left arm Carotid stenosis, bilateral Degenerative disc disease, cervical Abnormal EKG Left arm pain Diabetes mellitus Tobacco use Coronary artery calcification seen on CAT scan Cervical disc disease Rheumatoid arthritis Vitamin D deficiency (~08/27/18) Hyperlipidemia (~08/27/18) Social History Smoking Status: Current every day smoker tobacco type: cigarettes packs per day: 1 second hand exposure: No alcohol intake: never substance use type: denies use current occupational status: unemployed Travel in the last 8 weeks: None household members: spouse housing: house current occupational exposures/hazards: No ROS Obtained: Yes All systems reviewed & no additional complaints except as documented Physical Exam General General appearance: alert and in no apparent distress Head Head exam: atraumatic and normocephalic Eye Eye exam: Present normal appearance, PERRL and EOMI ENT ENT exam: Present normal exam, normal oropharynx, mucous membranes moist and normal external ear exam Neck Neck exam: Present normal inspection, full ROM and trachea midline; Absent tenderness Chest Chest inspection: Present normal inspection and symmetric chest wall rise; Absent tenderness Respiratory Respiratory exam: Present normal lung sounds bilaterally; Absent respiratory distress, wheezes, stridor or accessory muscle use Cardiovascular Cardiovascular exam: Present regular rate and normal rhythm Abdominal Exam Abdominal exam: Present soft; Absent distention, tenderness or guarding Extremities Exam Extremities exam: Present normal inspection, full ROM and normal capillary refill; Absent tenderness or edema Back Exam Back exam: Present normal inspection and full ROM; Absent tenderness Neurological Exam Neurological exam: Present alert, oriented X3, CN II-XII intact and normal gait; Absent motor sensory deficit Psychiatric Psychiatric exam: Present normal affect and normal mood Skin Skin exam: Present warm and dry Medical Decision Making Medical Records Medical records reviewed: Yes I reviewed the patient's medical records. Chris Inquiry Pt receiving controlled substance: No Vital Signs: 02/02/24 12:24 02/02/24 12:35 02/02/24 12:48 Temperature 98.4 F Temperature Source Oral Pulse Rate 76 72 Pulse Rate [Left] 68 Respiratory Rate 16 Blood Pressure 196/81 H 165/86 H Blood Pressure [Right Arm] 168/107 H Blood Pressure Mean Blood Pressure Mean [Right Arm] 127 Blood Pressure Source [Right Arm] Automatic Cuff Blood Pressure Position [Right Arm] Sitting 02 Sat by Pulse Oximetry 97 99 98 Oxygen Delivery Method Room Air Room Air 02/02/24 12:52 02/02/24 13:01 02/02/24 13:30 Temperature Temperature Source Pulse Rate 67 65 Pulse Rate [Left] Respiratory Rate Blood Pressure 162/76 H 158/74 H Blood Pressure [Right Arm] 168/107 H Blood Pressure Mean 102 Blood Pressure Mean [Right Arm] 127 Blood Pressure Source [Right Arm] Blood Pressure Position [Right Arm] Sitting 02 Sat by Pulse Oximetry 97 96 Oxygen Delivery Method Room Air Room Air 02/02/24 13:40 02/02/24 14:46 02/02/24 14:46 Temperature Temperature Source Pulse Rate 64 65 Pulse Rate [Left] Respiratory Rate Blood Pressure 149/74 H 132/73 132/73 Blood Pressure [Right Arm] Blood Pressure Mean 99 92 Blood Pressure Mean [Right Arm] Blood Pressure Source [Right Arm] Blood Pressure Position [Right Arm] 02 Sat by Pulse Oximetry 97 97 Oxygen Delivery Method Room Air Room Air 02/02/24 15:17 Temperature 98.4 F Temperature Source Pulse Rate 67 Pulse Rate [Left] Respiratory Rate 16 Blood Pressure 132/72 Blood Pressure [Right Arm] Blood Pressure Mean Blood Pressure Mean [Right Arm] Blood Pressure Source [Right Arm] Blood Pressure Position [Right Arm] 02 Sat by Pulse Oximetry Oxygen Delivery Method Room Air Lab Data Lab results reviewed: Yes I reviewed the patient's lab results. Lab Results 02/02/24 12:40: WBC 5.7, RBC 4.30, Hgb 13.8, Hct 42.3, MCV 98.3, MCH 32.1 H, MCHC 32.6, RDW 13.6, Plt Count 174, MPV 9.6, Neut % (Auto) 64.0, Lymph % (Auto) 25.5, Will % (Auto) 5.4, Eos % (Auto) 3.9, Baso % (Auto) 1.2, Neut # (Auto) 3.6, Lymph # (Auto) 1.4, Will # (Auto) 0.3, Eos # (Auto) 0.2, Baso # (Auto) 0.1, Sodium 140, Potassium 3.7, Chloride 107, Carbon Dioxide 33 H, Anion Gap 3.7 L, BUN 13, Creatinine 0.80, Estimated Creat Clear 62, Estimated GFR 73, Est GFR ( Amer) 88, Glucose 121 H, Calcium 9.4, Total Bilirubin 0.5, AST 26, ALT 15, Alkaline Phosphatase 97, Troponin I < 0.01, Total Protein 7.4, Albumin 4.0, Globulin 3.4 H, Albumin/Globulin Ratio 1.2 02/02/24 12:40 02/02/24 12:40 Orders (Tests/Meds): ED MEDICATIONS Discontinued Medications Generic Name Dose Route Start Last Admin Trade Name Valdoq PRN Reason Stop Dose Admin Acetaminophen 1,000 mg 02/02/24 13:41 02/02/24 13:53 Acetaminophen 500mg Tab PO 02/02/24 13:42 1,000 mg ONCE ONE Administration Ketorolac Tromethamine 15 mg 02/02/24 13:41 02/02/24 13:52 Ketorolac 30mg/Ml Vial IV 02/02/24 13:42 15 mg ONCE ONE Administration ORDERS Category Date Time Status Complete Blood Count Auto Diff Stat Lab 02/02/24 12:40 Completed Comprehensive Metabolic Panel Stat Lab 02/02/24 12:40 Completed Trop I [Troponin I] Stat Lab 02/02/24 12:40 Completed ECG Data Tracing #1: I reviewed this ECG and interpreted as documented below: Normal sinus rhythm with a ventricular rate of [address] changes concerning for ischemia. Normal axis and intervals. ECG initial impression date: 02/02/24 ECG initial impression time: 12:32 HEART Score History (anamnesis): Slightly suspicious ECG: Normal Age: 45-65 years Risk factors: Atherosclerosis history Troponin: </= normal limit HEART Score: 3 Medical Decision Narrative: In summary, this patient is a 63-year-old female presenting to the Emergency Department for evaluation of high blood pressure readings as an outpatient and headache. Differential diagnoses considered include but are not limited to hypertensive urgency, hypertensive emergency, renal dysfunction, ACS, migraine, tension headache, intracranial mass. Ruling out the most morbid conditions drove assessment. On exam, the patient is well-appearing with improved blood pressure with systolic in the 140s compared to what she is at her outpatient blood pressure was. She has a headache at this time, but she has no neurologic symptoms or deficits. Exam is normal. EKG was obtained and is reassuring workup included CBC, CMP, and troponin. I considered obtaining CT scan of the head without contrast, however the patient has no neurologic symptoms or deficits that would suggest acute intracranial pathology. Patient is in agreement with not obtaining head imaging. She states that she thinks she is just hungry. She was given Tylenol and Toradol for symptomatic improvement of headache. On reassessment, patient is feeling much better with resolution of headache. She states that she feels much better after eating. Vitals are reassuring with systolic in the 130s at this time. Given this, I do not feel that changing her blood pressure medication would be beneficial at this time, as it is unclear if she is chronically elevated or if this was just a fluke related to headache/stress from outpatient procedure. I advised that she keep a log of her blood pressures at home and return to the emergency department for new or concerning symptoms. Advised that she follow-up closely with her primary care provider for further adjustments in her blood pressure medications. At this time, patient was seen to be appropriate for discharge. Strict return precautions were given, and the patient was discharged after all questions were answered. Critical Care Critical Care Time Critical Care Time: No
[2024-02-02 14:40] LABS: Troponin I < 0.01 ng/ml (0.00-0.034)
== END 2024-02-02 15:17 | disposition home or self-care (01) ==
PROVIDERS: Emergency Provider Emergency Medicine; PCP Physician Assistant
DX: R51.9 Headache, unspecified (principal); I11.0 Hypertensive heart disease with heart failure; E78.5 Hyperlipidemia, unspecified; F17.210 Nicotine dependence, cigarettes, uncomplicated; I50.9 Heart failure, unspecified; M06.9 Rheumatoid arthritis, unspecified; E11.9 Type 2 diabetes mellitus without complications; Z79.84 Long term (current) use of oral hypoglycemic drugs
CPT/HCPCS: 80053; 84484; 85025; 93005; 96374; 99284

== ENCOUNTER 2024-02-16 08:15 | Outpatient (CLI) | payer OTHER, SELFPAY ==
--- NOTE | 2024-02-16 08:19 | XR_ITS ---
FINAL REPORT CLINICAL HISTORY: left 2nd met fx COMPARISON: 01/26/2024 FINDINGS: LEFT FOOT: Three views of the left foot were obtained. There is mild hallux valgus deformity. There is moderate degenerative change of the first MTP, mild degenerative change elsewhere in the foot. There is a subacute to chronic fracture of the second metatarsal with callus formation. There is no soft tissue abnormality. IMPRESSION: Subacute to chronic second metatarsal fracture with callus formation. Reviewed, Interpreted and Dictated by Jluis Lee III, MD Transcribed by Stephanie Barragan Authenticated and [facility]
== END 2024-02-16 23:59 ==
LOC: RAD 08:15
PROVIDERS: PCP Physician Assistant; Visit Provider Podiatrist
DX: M79.672 Pain in left foot (principal); S92.325A Nondisplaced fracture of second metatarsal bone, left foot, initial encounter for closed fracture; T14.8XXA Other injury of unspecified body region, initial encounter
CPT/HCPCS: 73630

== ENCOUNTER 2024-03-01 15:09 | Outpatient (CLI) | payer OTHER, SELFPAY ==
[2024-03-01 15:41] LABS: Basophils # 0.1 K/mm3 (0-0.2); Eosinophils # 0.4 K/mm3 (0.0-0.4); Eosinophils % 6.1 % (0.1-12.0); Hematocrit 38.4 % (37.0-47.0); Hemoglobin 12.6 g/dL (12.2-16.2); Lymphocytes # 1.4 K/mm3 (0.7-4.5); Lymphocytes % 22.2 % (10-50); Mean Corpuscular HGB Conc 32.8 g/dL (31.8-35.4); Mean Corpuscular Hemoglobin 31.3 pg (27.0-31.2); Mean Corpuscular Volume 95.4 fl (81-99); Mean Platelet Volume 9.5 fl (7.4-10.4); Monocytes # 0.3 K/mm3 (0.1-1.0); Monocytes % 4.6 % (1.7-9.3); Neutrophils # 4.1 K/mm3 (1.8-7.8); Neutrophils % 66.1 % (37.0-80.0); Platelet Count 179 K/mm3 (142-424); Red Blood Count 4.03 M/mm3 (4.20-5.40); White Blood Count 6.2 K/mm3 (4.8-10.8)
[2024-03-01 16:26] LABS: Alanine Aminotransferase 21 U/L (12-78); Albumin Level 3.9 g/dl (3.5-5.0); Alkaline Phosphatase 98 U/L (38-126); Anion Gap 8.5 mEq/L (5-15); Aspartate Amino Transferase 25 U/L (14-36); Bilirubin,Direct 0.1 mg/dl (0.0-0.4); Bilirubin,Indirect 0.2 mg/dL (0.0-0.9); Bilirubin,Total 0.3 mg/dl (0.2-1.3); Bilirubin,Unconjugated 0.2 mg/dL (0.0-1.1); Blood Urea Nitrogen 12 mg/dl (7-17); Calcium 9.2 mg/dl (8.4-10.2); Carbon Dioxide 30 mmol/L (22.0-30.0); Chloride 108 mmol/L (98-107); Chol/HDL Ratio 4.9 (1-3.5); Cholesterol 192 mg/dl (140-200); Estimated Glomerular Filt Rate 64 ml/min (>60); GFR (African American) 77 ML/MIN (>60); Glucose 129 mg/dl (74-100); HDL Cholesterol 39 mg/dl (40-60); Magnesium 1.7 mg/dl (1.6-2.3); Potassium 3.5 mmoL/L (3.5-5.1); Sodium 143 mmol/L (136-145); Total Protein,Serum 6.6 g/dl (6.3-8.2); Triglycerides 251 mg/dl (30-150); VLDL Cholesterol 50 mg/dL (0-40)
[2024-03-01 16:47] LABS: Direct LDL Cholesterol 106.85 mg/dL (100-129)
[2024-03-01 16:57] LABS: Thyroid Stimulating Hormone 0.87 uIU/mL (0.465-4.68)
== END 2024-03-01 23:59 | disposition home or self-care (01) ==
LOC: LAB 15:10
PROVIDERS: PCP Physician Assistant; Visit Provider Nurse Practitioner
DX: I73.9 Peripheral vascular disease, unspecified (principal); I77.9 Disorder of arteries and arterioles, unspecified; R06.02 Shortness of breath; R07.9 Chest pain, unspecified; I10 Essential (primary) hypertension; E11.39 Type 2 diabetes mellitus with other diabetic ophthalmic complication; Z79.84 Long term (current) use of oral hypoglycemic drugs; F17.210 Nicotine dependence, cigarettes, uncomplicated
CPT/HCPCS: 36415; 80048; 80061; 80076; 83735; 84439; 84443; 85025

== ENCOUNTER 2024-03-18 10:37 | Emergency (ER) | payer OTHER, SELFPAY ==
[2024-03-18 10:45] VITALS: BP 158/57; PULSE 64; RESP 21; TEMP 37.2; O2SAT 96; BMI 25.9
--- NOTE | 2024-03-18 10:58 | ED_ITS ---
Discharge Plan Disposition Patient Disposition: Home, Self-Care Condition: Good Prescriptions Prescriptions: New ondansetron 4 mg Tablet,Disintegrating 4 mg PO Q8H PRN (Reason: Nausea) Qty: 12 0RF No Action (DME) Blood Glucose Test Strip See Rx Instructions .Route Qty: 50 12RF Rx Instructions: As directed (DME) blood-glucose meter [Blood Glucose Monitoring] Kit See Rx Instructions .ROUTE .MEDSUPPLY Qty: 1 0RF Rx Instructions: As directed (DME) FreeStyle Lenny 3 Sensor Device See Rx Instructions .Route Qty: 3 3RF Rx Instructions: As directed atorvastatin 80 mg tablet 80 mg PO DAILY venlafaxine 75 mg capsule,extended release 24hr 75 mg PO DAILY metoprolol succinate 50 mg tablet extended release 24 hr 50 mg PO DAILY hydrocodone-acetaminophen 5-325 mg tablet 1 tab PO Q8HP PRN (Reason: Pain) Patient Comments: TAKE 1 TABLET BY MOUTH EVERY 8 HOURS NEEDED FOR PAIN olanzapine 2.5 mg tablet 2.5 mg PO DAILY gabapentin 100 mg capsule 100 mg PO DAILY Patient Comments: TAKE 1 CAPSULE BY MOUTH EVERY 8 HOURS metformin 500 mg tablet extended release 24 hr 500 mg PO DAILY Januvia 100 mg tablet 100 mg PO DAILY Entresto 24-26 mg tablet 1 tab PO DAILY Vraylar 1.5 mg capsule 1.5 mg PO DAILY Referrals Follow up/Referrals: Marta Schmitz PA [Primary Care Provider] - See instructions Activity Restrictions/Add. Instructions Additional Instructions/Restrictions: Drink plenty of fluids. Take tylenol or ibuprofen for pain or fever. Take the zofran as directed if you continue to have nausea/vomiting Follow up with your regular doctor. GO TO THE ER FOR ANY WORSENING SYMPTOMS Clinical Impressions Clinical Impression: Gastroenteritis Stand Alone Forms Stand Alone Forms: Work/School Release Instructions Patient Instructions: Viral Gastroenteritis, DI for Viral Gastroenteritis -- Adult, Ondansetron, Ketorolac Injection Discharge ED Provider: Pedro Owens [facility] General Stated complaint: stomach cramps Time Seen by Provider: 03/18/24 10:54 History of Present Illness Provider Complaint: She states that for the past 1 day she has had abdominal cramps and nausea. She denies diarrhea but she states that she feels like it will start. She denies fever/chills. She does not have an appendix. Related Data Home Medications Medication Instructions Recorded Confirmed atorvastatin 80 mg tablet 80 mg PO DAILY 03/18/24 03/18/24 cariprazine 1.5 mg capsule 1.5 mg PO DAILY 03/18/24 03/18/24 (Vraylar) gabapentin 100 mg capsule 100 mg PO DAILY 03/18/24 03/18/24 hydrocodone 5 mg-acetaminophen 325 1 tab PO Q8HP PRN Pain 03/18/24 03/18/24 mg tablet metformin 500 mg tablet,extended 500 mg PO DAILY 03/18/24 03/18/24 release 24 hr metoprolol succinate 50 mg 50 mg PO DAILY 03/18/24 03/18/24 tablet,extended release 24 hr olanzapine 2.5 mg tablet 2.5 mg PO DAILY 03/18/24 03/18/24 sacubitril 24 mg-valsartan 26 mg 1 tab PO DAILY 03/18/24 03/18/24 tablet (Entresto) sitagliptin phosphate 100 mg 100 mg PO DAILY 03/18/24 03/18/24 tablet (Januvia) venlafaxine 75 mg capsule,extended 75 mg PO DAILY 03/18/24 03/18/24 release 24 hr Previous Rx's Medication Instructions Recorded blood sugar diagnostic (Blood #50 ea 01/24/23 Glucose Test strips) blood-glucose meter (Blood Glucose #1 ea 01/24/23 Monitoring kit) blood-glucose sensor (FreeStyle #3 ea 03/08/24 Lenny 3 Sensor device) ondansetron 4 mg disintegrating 4 mg PO Q8H PRN Nausea #12 tabs 03/18/24 tablet Allergies Allergy/AdvReac Type Severity Reaction Status Date / Time No Known Allergies Allergy Verified 02/16/24 08:48 [facility] Disclaimer: The information contained in this section may have been updated after the patient was seen, as this information can be updated by other users. 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 Numbness and tingling in left arm Carotid stenosis, bilateral Degenerative disc disease, cervical Abnormal EKG Left arm pain Diabetes mellitus Tobacco use Coronary artery calcification seen on CAT scan Cervical disc disease Rheumatoid arthritis Vitamin D deficiency (~08/27/18) Hyperlipidemia (~08/27/18) Social History Smoking Status: Current every day smoker tobacco type: cigarettes packs per day: 1 second hand exposure: No alcohol intake: never substance use type: denies use current occupational status: unemployed Travel in the last 8 weeks: None household members: spouse housing: house current occupational exposures/hazards: No ROS Obtained: Yes All systems reviewed & no additional complaints except as documented Constitutional Constitutional: Denies chills, Denies fever(s) and Reports poor appetite ENT Ears, Nose, Mouth, and Throat: Denies dizziness and Denies sore throat Cardiovascular Cardiovascular: Denies dyspnea Respiratory Respiratory: Denies chest congestion, Denies cough and Denies dyspnea Gastrointestinal Gastrointestingal: Reports as per HPI, cramping and nausea; Denies abdominal pain, constipation, diarrhea or vomiting Genitourinary Female Genitourinary: Denies difficulty voiding, Denies dysuria, Denies hematuria, Denies urinary frequency, Denies urinary incontinence, Denies urinary hesitancy and Denies urinary urgency Musculoskeletal Musculoskeletal: Denies arthralgias Integumentary/Breasts Skin/Breast: Denies rash Neurologic Neurologic: Denies dizziness Physical Exam General General appearance: alert and in no apparent distress Head Head exam: atraumatic and normocephalic Eye Eye exam: Present normal appearance, PERRL and EOMI ENT ENT exam: Present normal exam, normal oropharynx, mucous membranes moist, TM's normal bilaterally and normal external ear exam Neck Neck exam: Present normal inspection, full ROM and trachea midline; Absent tenderness, meningismus or lymphadenopathy Chest Chest inspection: Present normal inspection and symmetric chest wall rise; Absen t tenderness, rash or abscess Respiratory Respiratory exam: Present normal lung sounds bilaterally; Absent respiratory distress, wheezes or stridor Cardiovascular Cardiovascular exam: Present regular rate and normal rhythm; Absent irregular rhythm, systolic murmur, diastolic murmur or JVD Abdominal Exam Abdominal exam: Present soft and hyperactive bowel sounds; Absent distention, tenderness, guarding, rebound, rigidity, psoas sign, obturator sign, heel tap sign, Johansen's sign, Rovsing's sign or tenderness at McBurney's Point Extremities Exam Extremities exam: Present normal inspection and full ROM; Absent tenderness Back Exam Back exam: Present normal inspection and full ROM; Absent tenderness, CVA tenderness (R) or CVA tenderness (L) Neurological Exam Neurological exam: Present alert, oriented X3 and CN II-XII intact Psychiatric Psychiatric exam: Present normal affect and normal mood Skin Skin exam: Present warm, dry, intact and normal color Lymphatic Lymphatic Findings: no adenopathy Medical Decision Making Medical Records Medical records reviewed: No I reviewed the patient's medical records. Chris Inquiry Pt receiving controlled substance: No Lab Data Lab results reviewed: Yes I reviewed the patient's lab results. Medical Decision Narrative: She refused lab work and further evaluation at this time.
[2024-03-18 11:07] LABS: Apearance,Urine Clear (Clear); Color,Urine Dark Yellow (Yellow); Glucose,Urine (UA) Negative (Negative); Ketones,Urine Negative (Negative); PH,Urine 5.5 (5.0-8.5); Protein,Urine 3+ (Negative)
[2024-03-18 11:08] LABS: Bilirubin,Urine 1+ (Negative); Blood, Urine Negative (Negative); UTC Leukocyte Esterase,Urine Negative (Negative); UTC Nitrate,Urine Negative (Negative); Urobilinogen,Urine 1 EU/dl (0.2)
--- NOTE | 2024-03-18 11:48 | PC.NURSE ---
PATIENT REFUSED BLOOD WORK AT THIS TIME. SHE STATES SHE WANTS TO FOLLOW UP WITH HER PCP
[2024-03-18] MEDS: KETOROLAC 60MG/2ML VIAL 60 MG IM (11:53)
[2024-03-18 11:55] VITALS: BP 158/57; PULSE 64; RESP 21; TEMP 37.2; O2SAT 96
== END 2024-03-18 12:03 | disposition home or self-care (01) ==
PROVIDERS: Emergency Provider Nurse Practitioner Family; PCP Physician Assistant
DX: K52.9 Noninfective gastroenteritis and colitis, unspecified (principal); R10.819 Abdominal tenderness, unspecified site; R11.0 Nausea; B96.89 Other specified bacterial agents as the cause of diseases classified elsewhere
CPT/HCPCS: 81003; 87086; 96372; 99212; 99214; G0463

== ENCOUNTER 2024-03-22 06:19 | Outpatient (CLI) | payer OTHER, SELFPAY ==
--- NOTE | 2024-03-22 | CA_ITS ---
APPROVED REPORT Exam: Pharmacologic Technologist: Qing Rodrigues, Ht: 5 ft 2 in Wt: 145 lbs BSA: 1.67 m2 HR: 75 bpm BP: 154/71 mmHg Rhythm: SR Medical History Medical History: HTN, Hyperlipidemia, Diabetes, Smoking Medications: Gabapentin,,,,, Diazepam,,,,, Atorvastatin,,,,, Olanzapine,,,,, Sitagliptin,,,,, EnTRESTO,,,,, Leflunomide,,,,, Cariprazine,,,,, Hydrocodone-Acetaminohen,,,,, Metformin ER,,,,, Metorpolol succinate ER,,,,, VENFLAXINE ER,,,,, Allergies: No known drug allergies Cardiac Risk Factors: HTN, Hyperlipidemia, Diabetes , Smoking Stress Test Details Test: LEXISCAN HR Resting HR: 74 bpm Max Heart Rate (APMHR): 159 bpm Max HR Achieved: 96 bpm Target HR (85% APMHR): 135 bpm % of APMHR: 60 Recovery HR: 81 bpm BP Resting BP: 154/71 mmHg Max BP: 161/64 mmHg Recovery BP: 158.0/69.0 mmHg ECG Resting ECG: SR Stress ECG: No significant ST changes Arrhythmia: None Clinical Exercise duration: 04:02 min Highest Stage Achieved: Exercise capacity: 1.0 METs Stress ECG Conclusion PT HAD SOA, BECAME LIGHT HEADED AND HAD CHEST PRESSURE Ectopy: none ST changes: none Conclusion: Unremarkable Lexiscan stress test. Myoview images reported separately. Test Summary REST 24:41 . . 74 . 154/ 71 . . Stage 1 01:00 . . 89 . . . . Stage 2 01:00 . . 90 . 148/ 71 . . Stage 3 01:00 . . 86 . . . . Stage 4 01:00 . . 85 . 154/ 73 . . Stage 4 01:02 . . 84 . 154/ 73 . Stop exercise at 04:02 RECOVERY 01:00 . . 86 . 147/ 59 . . RECOVERY 02:00 . . 84 . 140/ 84 . . RECOVERY 03:00 . . 87 . 153/ 87 . . RECOVERY 04:00 . . 84 . 153/ 87 . . RECOVERY 05:00 . . 79 . 161/ 64 . . RECOVERY 06:00 . . 83 . 158/ 69 . . RECOVERY 06:28 . . 82 . 158/ 69 . . Electronically signed by : Lesia Waite MD 03/23/2024 12:59:49
--- NOTE | 2024-03-22 06:20 | CA_ITS ---
APPROVED REPORT EXAM: Comprehensive 2D, Doppler, and color-flow Echocardiogram Organizational Consultant: Becky Dougherty CRT Ht: 5 ft 2 in Wt: 145lbs BSA: 1.67 BP: 181/79 mmHg Indications: Abnormal ECG, Shortness of Breath, Hyperlipidemia, Hypertension/HDD, smoker 2D Dimensions LA Volume 24.10 mL LA Volume Index 14.43 mL/m2 (M/F) 16-34 M-Mode Dimensions RVDd 1.92 cm (0.9-2.6) LA Diam 3.06 cm (1.9-4.0) LVDd 3.87 cm (3.5-5.7) LVDs 2.15 cm (3.5-5.7) IVSd 1.60 cm (0.6-1.1) PWd 0.81 cm (0.6-1.1) EF (Teich) 76.40% FS 44.40% EDV (Teich) 64.70 mL ESV (Teich) 15.30 mL LV Diastology MED A' 9.30 cm/s LAT A' 11.90 cm/s Aortic Valve AO Peak GR. 3.70 mmHg Pulmonary Valve PV Peak Velocity 81.0 (50-150 cm/s) Tricuspid Valve TR P. Velocity 139.00 cm/s Left Ventricle The left ventricle is normal size. The left ventricular systolic function is normal. The left ventricular ejection fraction is within the normal range. There is marked asymmetric increase in LV wall thickness (IVSd 1.4 cm). There is no LVOT gradient at rest. There is normal LV segmental wall motion. Transmitral Doppler flow pattern suggests impaired LV relaxation. LVEF is 60%. Right Ventricle The right ventricle is normal size. The right ventricular systolic function is normal. Atria The left atrium size is normal. The right atrium size is normal. There is no Doppler evidence of interatrial shunt. Aortic Valve The aortic valve is mildly thickened. There is no aortic valvular stenosis. No aortic regurgitation is present. Mitral Valve The mitral valve is normal in structure. No evidence of mitral valve stenosis. Trace mitral regurgitation. Tricuspid Valve The tricuspid valve leaflets are thin and pliable. Trace tricuspid regurgitation. There is insufficient TR jet to estimate RVSP. Pulmonic Valve The pulmonary valve is normal in structure. Trace pulmonic regurgitation. Great Vessels The aortic root is normal in size. The ascending aorta is not well-visualized. IVC is normal in size and collapses >50% with inspiration. Pericardium There is no pericardial effusion. Other Information Study Quality: Fair Conclusion Normal biventricular systolic function. Marked asymmetric increase in LV wall thickness (IVSd 1.4 cm). No significant valvular stenosis or regurgitation. In the setting of increased LV wall thickness and persistent symptoms, further evaluation with outpatient cardiac MRI (HCM protocol) is recommended. Electronically signed by : Lesia Waite MD 03/23/2024 12:46:36
--- NOTE | 2024-03-22 06:27 | NM_ITS ---
APPROVED REPORT Exam: Nuclear Stress Test Indication: Chest pain, SOB, Fatigue, HTN, DM, High cholesterol, Tobacco use, Family history, CAD, Hx of CT Patient Location: Outpatient Stress Tech: Qing Rodrigues NM Tech:Sumi Johnson, ARRT, RT (R)(N) Ht: 5 ft 2 in Wt: 140 lbs Bra Size: 38A HR: 74 bpm BP: 154/71 mmHg BSA: 1.64 m2 TID: 1.35 BMI: 25.6 History: Chest pain, SOB, Fatigue, HTN, DM, High cholesterol, Tobacco use, Family history, CAD, Hx of M Procedure: Patient received 0.4 mg of intravenous Lexiscan, resting heart rate 74 bpm, resting blood pressure 154/71 mmHg, with Lexiscan maximum heart rate achieved was 96 bpm which is % of the maximum predicted heart rate and blood pressure was 161/64 mmHg. With Lexiscan, patient denied any complaint of chest pain. Cardiac Stress and Resting SPECT Images: Cardiac Stress and Resting SPECT images were obtained using technetium 99m Myoview 28.8 mCi stress and 10.43 mCi at rest. Resting and stress imaging in supine and prone positions demonstrate no evidence of fixed or reversible perfusion defects. There is increased transient ischemic dilatation ratio (TID 1.35), suggestive of possible multivessel disease or balanced ischemia. Gated imaging demonstrates normal global and regional LV systolic function. LVEF is calculated at 59%. Conclusion: No evidence of fixed or reversible perfusion defects. There is increased transient ischemic dilatation ratio (TID 1.35), suggestive of possible multivessel disease or balanced ischemia. Gated imaging demonstrates normal global and regional LV systolic function. LVEF is calculated at 59%. Electronically signed by : Lesia Waite MD 03/23/2024 13:01:17
[2024-03-22] MEDS: ISOTOPE MYOVIEW (PER STUDY) 1 DOSE IV (08:52)
[2024-03-22] MEDS: SODIUM CHLORIDE 0.9% 10ML SYR (RAD ONLY) 10 ML IV ×2 (08:52)
[2024-03-22] MEDS: REGADENOSON 0.4MG/5ML SYRINGE 0.400000000000000022 MG IV (08:52)
== END 2024-03-22 23:59 | disposition home or self-care (01) ==
LOC: RAD 06:20
PROVIDERS: PCP Physician Assistant; Visit Provider Nurse Practitioner
DX: R06.02 Shortness of breath (principal); R07.9 Chest pain, unspecified; I10 Essential (primary) hypertension; E11.39 Type 2 diabetes mellitus with other diabetic ophthalmic complication; I73.9 Peripheral vascular disease, unspecified; I77.9 Disorder of arteries and arterioles, unspecified; F17.210 Nicotine dependence, cigarettes, uncomplicated
CPT/HCPCS: 78452; 93017; 93018; 93306; A9502; J2785

== ENCOUNTER 2024-03-23 08:24 | Emergency (ER) | payer OTHER, SELFPAY ==
[2024-03-23 09:05] VITALS: BP 188/72; PULSE 76; RESP 18; TEMP 36.6; O2SAT 99; BMI 25.6
--- NOTE | 2024-03-23 09:31 | EXP.UTC ---
Discharge Plan Disposition Patient Disposition: Home, Self-Care Condition: Good Prescriptions Prescriptions: New prednisone 10 mg tablet 10 mg PO DIRECTED 9 Days Qty: 21 0RF Rx Instructions: Take 4 tablets daily for 3 days, then take 2 tablets daily for 3 days, then take 1 tablet daily for 3 days, then stop. triamcinolone acetonide 0.1 % cream 1 applic topical BID PRN (Reason: itching) Qty: 30 0RF acyclovir 800 mg tablet 800 mg PO 5XDAY 7 Days Qty: 35 0RF ibuprofen 600 mg tablet 600 mg PO Q6HP PRN (Reason: Mild Pain) Qty: 30 0RF No Action (DME) Blood Glucose Test Strip See Rx Instructions .Route Qty: 50 12RF Rx Instructions: As directed (DME) blood-glucose meter [Blood Glucose Monitoring] Kit See Rx Instructions .ROUTE .MEDSUPPLY Qty: 1 0RF Rx Instructions: As directed (DME) FreeStyle Lenny 3 Sensor Device See Rx Instructions .Route Qty: 3 3RF Rx Instructions: As directed metoprolol succinate 50 mg tablet extended release 24 hr See Rx Instructions .ROUTE .COMPLEX Qty: 30 0RF Dose Instruction: TAKE 1 TABLET BY MOUTH DAILY Rx Instructions: TAKE 1 TABLET BY MOUTH DAILY atorvastatin 80 mg tablet 80 mg PO DAILY venlafaxine 75 mg capsule,extended release 24hr 75 mg PO DAILY hydrocodone-acetaminophen 5-325 mg tablet 1 tab PO Q8HP PRN (Reason: Pain) Patient Comments: TAKE 1 TABLET BY MOUTH EVERY 8 HOURS NEEDED FOR PAIN olanzapine 2.5 mg tablet 2.5 mg PO DAILY gabapentin 100 mg capsule 100 mg PO DAILY Patient Comments: TAKE 1 CAPSULE BY MOUTH EVERY 8 HOURS metformin 500 mg tablet extended release 24 hr 500 mg PO DAILY Januvia 100 mg tablet 100 mg PO DAILY Entresto 24-26 mg tablet 1 tab PO DAILY Vraylar 1.5 mg capsule 1.5 mg PO DAILY ondansetron 4 mg Tablet,Disintegrating 4 mg PO Q8H PRN (Reason: Nausea) Qty: 12 0RF Referrals Follow up/Referrals: Marta Schmitz PA [Primary Care Provider] - See instructions Activity Restrictions/Add. Instructions Additional Instructions/Restrictions: Drink plenty of fluids. Take tylenol or ibuprofen for pain or fever. Take the medications as directed. Follow up with your regular doctor. GO TO THE ER FOR ANY WORSENING SYMPTOMS Clinical Impressions Clinical Impression: Shingles Stand Alone Forms Stand Alone Forms: Work/School Release Instructions Patient Instructions: Shingles, DI for Shingles, Prednisone, Acyclovir Discharge ED Provider: Pedro Owens [facility] General Stated complaint: possible shingles Mode of Arrival: Ambulatory Source of Information: Patient Limitations: No Limitations Time Seen by Provider: 03/23/24 09:31 Description of Symptoms (Recalled from Triage Doc. by RN): Pt's symptoms are rash on back of right side. She states that its painful. She thinks it may be shingles. HEENT Symptoms (Recalled from RN notes): Yes Resp Symptoms (Recalled from RN notes): No Skin Symptoms (Recalled from RN notes): No MS Symptoms (Recalled from RN notes): No Functional Status (Recalled from RN notes): n/a History of Present Illness Provider Complaint: She states that for the past 2 days she has had a worsening painful rash on her middle back that extends around her right side to her abdomen. She states that she has had shingles in the past and that is what she feels like she has again. Related Data Home Medications Medication Instructions Recorded Confirmed atorvastatin 80 mg tablet 80 mg PO DAILY 03/18/24 03/18/24 cariprazine 1.5 mg capsule 1.5 mg PO DAILY 03/18/24 03/18/24 (Vraylar) gabapentin 100 mg capsule 100 mg PO DAILY 03/18/24 03/18/24 hydrocodone 5 mg-acetaminophen 325 1 tab PO Q8HP PRN Pain 03/18/24 03/18/24 mg tablet metformin 500 mg tablet,extended 500 mg PO DAILY 03/18/24 03/18/24 release 24 hr olanzapine 2.5 mg tablet 2.5 mg PO DAILY 03/18/24 03/18/24 sacubitril 24 mg-valsartan 26 mg 1 tab PO DAILY 03/18/24 03/18/24 tablet (Entresto) sitagliptin phosphate 100 mg 100 mg PO DAILY 03/18/24 03/18/24 tablet (Januvia) venlafaxine 75 mg capsule,extended 75 mg PO DAILY 03/18/24 03/18/24 release 24 hr Previous Rx's Medication Instructions Recorded blood sugar diagnostic (Blood #50 ea 01/24/23 Glucose Test strips) blood-glucose meter (Blood Glucose #1 ea 01/24/23 Monitoring kit) blood-glucose sensor (FreeStyle #3 ea 03/08/24 Lenny 3 Sensor device) ondansetron 4 mg disintegrating 4 mg PO Q8H PRN Nausea #12 tabs 03/18/24 tablet metoprolol succinate 50 mg See Rx Instructions .Route 03/22/24 tablet,extended release 24 hr .COMPLEX #30 tabs acyclovir 800 mg tablet 800 mg PO 5XDAY 7 days #35 tabs 03/23/24 ibuprofen 600 mg tablet 600 mg PO Q6HP PRN Mild Pain #30 03/23/24 tabs prednisone 10 mg tablet 10 mg PO DIRECTED 9 days #21 03/23/24 tabs triamcinolone acetonide 0.1 % 1 applic topical BID PRN itching 03/23/24 topical cream #30 grams Allergies Allergy/AdvReac Type Severity Reaction Status Date / Time No Known Allergies Allergy Verified 03/23/24 09:27 Worker's Comp Is this a Worker's Comp case?: No [facility] Disclaimer: The information contained in this section may have been updated after the patient was seen, as this information can be updated by other users. 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 Numbness and tingling in left arm Carotid stenosis, bilateral Degenerative disc disease, cervical Abnormal EKG Left arm pain Diabetes mellitus Tobacco use Coronary artery calcification seen on CAT scan Cervical disc disease Rheumatoid arthritis Vitamin D deficiency (~08/27/18) Hyperlipidemia (~08/27/18) Social History Smoking Status: Current every day smoker tobacco type: cigarettes packs per day: 1 second hand exposure: No alcohol intake: never substance use type: denies use current occupational status: unemployed Travel in the last 8 weeks: None household members: spouse housing: house current occupational exposures/hazards: No ROS Obtained: Yes All systems reviewed & no additional complaints except as documented Constitutional Constitutional: Denies chills and Denies fever(s) Eyes Eyes: Denies eye discharge ENT Ears, Nose, Mouth, and Throat: Denies dizziness, Denies otalgia and Denies sore throat Cardiovascular Cardiovascular: Denies chest pain Respiratory Respiratory: Denies shortness of breath, Denies chest congestion, Denies cough, Denies stridor and Denies wheezing Gastrointestinal Gastrointestingal: Denies nausea or vomiting Musculoskeletal Musculoskeletal: Reports system reviewed and no additional complaints, except as documented and Denies arthralgias Integumentary/Breasts Skin/Breast: Reports as per HPI and Reports rash Neurologic Neurologic: Denies dizziness and Denies paresthesias Allergic/Immunologic Allergic/Immunologic: Denies wheezing Physical Exam General General appearance: alert and in no apparent distress Head Head exam: atraumatic, normocephalic and normal inspection Eye Eye exam: Present normal appearance, PERRL and EOMI ENT ENT exam: Present normal exam, normal oropharynx, mucous membranes moist, TM's normal bilaterally and normal external ear exam Neck Neck exam: Present normal inspection, full ROM and trachea midline; Absent meningismus or lymphadenopathy Chest Chest inspection: Present normal inspection and symmetric chest wall rise; Absent tenderness Respiratory Respiratory exam: Present normal lung sounds bilaterally; Absent respiratory distress Cardiovascular Cardiovascular exam: Present regular rate and normal rhythm; Absent JVD Abdominal Exam Abdominal exam: Present soft and normal bowel sounds; Absent distention, tenderness or guarding Extremities Exam Extremities exam: Present normal inspection, full ROM and normal capillary refill; Absent calf tenderness Back Exam Back exam: Present normal inspection; Absent tenderness Neurological Exam Neurological exam: Present alert and oriented X3 Psychiatric Psychiatric exam: Present normal affect and normal mood Skin Skin exam: Present rash (there is a patch of maculopapular lesions that extends from her middle back around her right flank to the center of her abdomen. There are vesicles present. no open wound and no drainage, no induration. ) Lymphatic Lymphatic Findings: no adenopathy Medical Decision Making Medical Records Medical records reviewed: No I reviewed the patient's medical records. Chris Inquiry Pt receiving controlled substance: No Vital Signs: 03/23/24 09:05 Temperature 97.9 F Temperature Source Oral Pulse Rate [Right Radial] 76 Respiratory Rate 18 Blood Pressure [Right Arm] 188/72 H Blood Pressure Mean [Right Arm] 110 Blood Pressure Source [Right Arm] Automatic Cuff Blood Pressure Position [Right Arm] Sitting 02 Sat by Pulse Oximetry 99 Oxygen Delivery Method Room Air
[2024-03-23 09:52] VITALS: BP 188/72; PULSE 76; RESP 18; TEMP 36.6; O2SAT 99
== END 2024-03-23 09:52 | disposition home or self-care (01) ==
PROVIDERS: Emergency Provider Nurse Practitioner Family; PCP Physician Assistant
DX: B02.9 Zoster without complications (principal)
CPT/HCPCS: 99212; 99214; G0463

== ENCOUNTER 2024-03-29 08:44 | Outpatient (CLI) | payer OTHER, SELFPAY ==
--- NOTE | 2024-03-29 08:50 | US_ITS ---
FINAL REPORT TECHNIQUE: Ultrasound images of the kidneys and bladder were obtained. CLINICAL HISTORY: I10 - Essential (primary) hypertension FINDINGS: The right kidney measures 10.7 cm in length. It is normal in echogenicity. There is no hydronephrosis. The left kidney measures 10.1 cm in length. It is normal in echogenicity. There is no hydronephrosis. There is a small echogenic focus in the left kidney likely due to small stone. The urinary bladder is unremarkable. IMPRESSION: Probable tiny left renal stone without hydronephrosis. Reviewed, Interpreted and Dictated by Alonso Yu MD Transcribed by Angelika Hastings Authenticated and [facility]
--- NOTE | 2024-03-29 09:27 | CA_ITS ---
FINAL REPORT CLINICAL HISTORY: HTN,DM,SMOKER FINDINGS: Aorta velocity: 99.9 cm/sec Right kidney: 9.8 cm. No evidence of hydronephrosis or mass. Right renal artery velocity: 250 cm/sec at the origin. Right RAR (Renal artery-Aortic Ratio): 2.5 Left Kidney: 9.8 cm. No evidence of hydronephrosis or mass. Left renal artery velocity: 123 cm/sec. Left RAR (Renal Artery-Aortic Ratio): 1.24 IMPRESSION: Less than 60% stenosis of the right renal artery. No significant left renal artery stenosis CT angiogram or postcontrast MR angiogram would be more sensitive for evaluation of possible renal artery stenosis. Reviewed, Interpreted and Dictated by Alonso Yu MD Transcribed by Angelika Hastings Authenticated and [facility]
== END 2024-03-29 23:59 | disposition home or self-care (01) ==
LOC: RT 08:46
PROVIDERS: PCP Physician Assistant; Visit Provider Nurse Practitioner
DX: R06.02 Shortness of breath (principal); I10 Essential (primary) hypertension; R07.9 Chest pain, unspecified; I73.9 Peripheral vascular disease, unspecified; I77.9 Disorder of arteries and arterioles, unspecified; E11.39 Type 2 diabetes mellitus with other diabetic ophthalmic complication; Z79.84 Long term (current) use of oral hypoglycemic drugs
CPT/HCPCS: 76770; 93880; 93976

== ENCOUNTER 2024-04-26 07:55 | Outpatient (CLI) | payer OTHER, SELFPAY ==
--- NOTE | 2024-04-26 07:55 | XR_ITS ---
FINAL REPORT TECHNIQUE: Bone densitometry calculations of the lumbar spine and left hip were obtained. CLINICAL HISTORY: post menopausal COMPARISON: None FINDINGS: Using L1-4, the bone mineral density of the spine is 1.109 g/cm2, corresponding to T-score of 0.6. Using the left hip, the bone mineral density of the femoral neck is 0.727 g/cm2, corresponding to a T-score of -1.1. NOTE: T-score: Standard deviation compared with peak bone mass of young adult mean. *Following the recommendations of the International Society of Bone densitometry, classification of hip BMD is based on the lower of two T-scores; total hip or femoral neck. IMPRESSION: Diminished bone mineral density of the left hip consistent with osteopenia. Normal bone mineral density of the lumbar spine. Reviewed, Interpreted and Dictated by Vernon Woodard MD Transcribed by Tiffany Ramon Authenticated and [facility]
--- NOTE | 2024-04-26 07:56 | XR_ITS ---
FINAL REPORT CLINICAL HISTORY: foot pain FINDINGS: LEFT FOOT Three views of the left foot demonstrate A healing fracture of the distal second metatarsal shaft. Diffuse degenerative changes are seen, most pronounced at the first MTP joint. There is chronic appearing subluxation of the second and third MTP joints. Mild hallux valgus deformity is noted. IMPRESSION: Healing fracture of the second metatarsal Reviewed, Interpreted and Dictated by Vernon Woodard MD Transcribed by Angelika Hastings Authenticated and [facility] [place] [place]
== END 2024-04-26 23:59 | disposition home or self-care (01) ==
LOC: RAD 07:55
PROVIDERS: PCP Physician Assistant; Visit Provider Physician Assistant
DX: Z78.0 Asymptomatic menopausal state (principal); M79.672 Pain in left foot; S92.325S Nondisplaced fracture of second metatarsal bone, left foot, sequela
CPT/HCPCS: 73630; 77080

== ENCOUNTER 2024-04-30 08:10 | Outpatient (CLI) | payer OTHER, SELFPAY ==
--- NOTE | 2024-04-30 08:11 | CT_ITS ---
FINAL REPORT CLINICAL HISTORY: abnl carotid u/s-carotid artery stenosis. FINDINGS: CTA NECK Thin section axial CT with contrast with multiplanar reconstruction NASCET criteria and technique was utilized during interpretation. Aortic arch: There is a left subclavian stent which is widely patent. Arch shows no significant narrowing. Great vessel origins are widely patent . Right carotid: Mild plaque with approximately 20% stenosis. Left carotid: No measurable stenosis.. Vertebrals: Moderate stenosis of the dominant right vertebral artery of approximately 50%. Left vertebral artery is occluded proximally with reconstitution of an atretic vessel distally. IMPRESSION: No carotid stenosis. Moderate proximal stenosis of the dominant right vertebral artery. 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 Reviewed, Interpreted and Dictated by Vernon Woodard MD Transcribed by Angelika Hastings Authenticated and [facility]
[2024-04-30 08:46] LABS: Blood Urea Nitrogen 10 mg/dl (7-17); Estimated Glomerular Filt Rate 73 ml/min (>60); GFR (African American) 88 ML/MIN (>60)
[2024-04-30] MEDS: SODIUM CHLORIDE 0.9% 10ML SYR (RAD ONLY) 10 ML IV (09:23)
[2024-04-30] MEDS: 0.9 % SODIUM CHLORIDE 50 ML VIAL IV (09:23)
[2024-04-30] MEDS: IOPAMIDOL-370 (76%);100ML BOTTLE 100 ML IV (09:23)
== END 2024-04-30 23:59 | disposition home or self-care (01) ==
LOC: RAD 08:11
PROVIDERS: PCP Physician Assistant; Visit Provider Physician Assistant
DX: I65.23 Occlusion and stenosis of bilateral carotid arteries (principal); R93.1 Abnormal findings on diagnostic imaging of heart and coronary circulation; F17.210 Nicotine dependence, cigarettes, uncomplicated
CPT/HCPCS: 36415; 70498; 82565; 84520; Q9967

== ENCOUNTER 2024-05-07 07:59 | Day surgery (SDC) | payer OTHER, SELFPAY ==
[2024-05-07] VITALS (11 sets, daily range): BP systolic 159–212; BP diastolic 65–114; PULSE 62–72; RESP 14–20; O2SAT 92–98; BMI 25.7
--- NOTE | 2024-05-07 07:43 | IR_ITS ---
APPROVED REPORT Patient Location: Outpatient PROCEDURES Left heart catheterization Left ventriculogram Selective coronary angiogram Bilateral selective renal angiography Bare-metal stent deployment to the right renal artery Catheter placement in the right common iliac artery Right common artery antegrade angiogram with unilateral runoff to the right foot Catheter placement in the left common iliac artery Left common iliac artery antegrade angiogram with unilateral runoff to the left foot INDICATION Coronary artery disease, Abnormal THELMA, Severe hypertension suspect renovascular hypertension based on probably vascular disease, Renal artery stenosis, Angina pectoris, Informed consent was obtained prior to the procedure. COMPLICATIONS NONE Estimated Blood Loss: LESS THAN 10 ML TECHNIQUE One percent lidocaine used to anesthetize the right anterior aspect of the wrist. The right radial artery was accessed via the Seldinger technique. A 6 Macedonian sheath was placed in the right radial artery. 2.5 mg of Verapamil, 800 mcg of nitroglycerin, 1mg Lidocaine and 5000 U Heparin were given through the arterial sheath. The papa catheter was also used to perform left heart catheterization, left ventriculogram and selective coronary angiogram. The Poppa catheter was used to perform bilateral selective renal angiography. Patient had systolic blood pressures in excess of 200 mmHg and was identified as having probably vascular disease. It was suspected patient had renal artery stenosis therefore bilateral cannulation of the renal arteries was performed. Following this a PV multi curve catheter was placed in the bilateral common iliac arteries and unilateral runoff to the foot was performed in both the right and left leg. Following diagnostic angiography therapeutic heparin was administered giving a therapeutic ACT and the Poppa catheter was reinserted into the distal abdominal aorta and used to cannulate the right renal artery. Choice PT extra-support wire was placed distally and a 6 mm x 15 mm Herculink stent was deployed at 14 harry reducing the severe stenosis to 0%. Excellent angiograph results were obtained. At the end the procedure the apparatus was removed the sheath was removed and hemostasis was achieved using TR banding patient was transferred to the postop holding in stable condition ANGIOGRAPHIC RESULTS The left main artery Normal The left anterior descending artery Has proximal 30% stenosis with mid vessel concentric 80% stenosis. The circumflex artery Nondominant yet still large with an ostial 50 to 60% stenosis The right coronary artery Large dominant and has proximal 6070% stenosis mid vessel concentric 80% stenosis with distal 50% stenosis The MELÉNDEZ ventriculogram reveals Normal 65% The left ventricular end-diastolic pressure 15 mmHg Right renal artery has an ostial 70 to 80% stenosis Left renal arteries are widely patent Right common internal and external iliac arteries are widely patent the right profunda femoris artery is patent the right superficial femoral artery has mild 20 to 30% atheromatous plaque. At Dano's canal there is additional 30% stenosis. The right popliteal artery is widely patent. There is three-vessel runoff below the knee on the right side however the flow is slow Left common internal and external iliac arteries are widely patent. Left profunda femoris artery is patent left common femoral artery is patent the left superficial femoral artery has mild 10 to 20% mid vessel stenoses. The popliteal artery has 30 to 40% stenoses. The distal popliteal has an eccentric 60% stenosis immediately proximal to the left anterior tibialis artery. The left AT is widely patent as is the peroneal artery. The left posterior tibialis artery is proximally patent with 70 and 80% stenoses and appears to terminate in the mid to distal portion of the calf IMPRESSION Severe three-vessel coronary disease as described above Normal ejection fraction Normal left ventricular end-diastolic pressure Severe right renal artery stenosis Successful stent to the right renal artery severe disease reduced to 0% with 1 bare-metal stent Peripheral artery disease as described above most notably with moderate to severe stenosis in the distal popliteal artery just prior to the origin of the left anterior tibialis artery PLAN 1. Recommend referral to CT surgery for surgical revascularization 2. LDL less than 55 to be achieved with high intensity statin 3. Avoidance of tobacco products 4. Medical management for coronary disease 5. Aspirin and Plavix for the next 30 days while the bare-metal stent endothelialized is in the right renal artery. The revascularizing the right renal artery should improve blood pressure management for the perioperative period of anticipated bypass surgery 6. Although the stenosis in the distal left popliteal artery is moderate to severe it is unlikely this stenosis is producing ischemic ulcers. Given anticipated coronary bypass surgery the nonhealing wound should be healed prior to proceeding with somewhat elective surgery. If this is not healed within the next 2 to 3 weeks it may be reasonable to revascularize the distal left popliteal artery although typically an isolated lesion such as this will not cause nonhealing ulcers to the degree patient is experiencing. Although still being possible this could be ischemic ulcer this needs to be kept in mind prior to bypass surgery Electronically signed by : Aristeo Aviles MD 05/07/2024 13:47:26
[2024-05-07 08:40] LABS: Chloride 105 mmol/L (98-107); Sodium 142 mmol/L (136-145)
[2024-05-07 08:41] LABS: Potassium 3.7 mmoL/L (3.5-5.1)
[2024-05-07 08:44] LABS: Anion Gap 9.7 mEq/L (5-15); Blood Urea Nitrogen 11 mg/dl (7-17); Calcium 9.3 mg/dl (8.4-10.2); Carbon Dioxide 31 mmol/L (22.0-30.0); Creatinine Clearance Estimated 59 mL/min (50-200); Estimated Glomerular Filt Rate 73 ml/min (>60); GFR (African American) 88 ML/MIN (>60); Glucose 96 mg/dl (74-100)
[2024-05-07 08:58] LABS: Basophils # 0.1 K/mm3 (0-0.2); Basophils % 0.8 % (0.1-2.0); Eosinophils # 0.2 K/mm3 (0.0-0.4); Eosinophils % 3.9 % (0.1-12.0); Hematocrit 41.1 % (37.0-47.0); Hemoglobin 12.8 g/dL (12.2-16.2); Lymphocytes # 1.3 K/mm3 (0.7-4.5); Lymphocytes % 22.1 % (10-50); Mean Corpuscular HGB Conc 31.2 g/dL (31.8-35.4); Mean Corpuscular Hemoglobin 30.1 pg (27.0-31.2); Mean Corpuscular Volume 96.5 fl (81-99); Mean Platelet Volume 8.7 fl (7.4-10.4); Monocytes # 0.2 K/mm3 (0.1-1.0); Monocytes % 3.5 % (1.7-9.3); Neutrophils % 69.7 % (37.0-80.0); Platelet Count 153 K/mm3 (142-424); Red Blood Count 4.26 M/mm3 (4.20-5.40); White Blood Count 5.7 K/mm3 (4.8-10.8)
[2024-05-07] MEDS: HEPARIN 1,000 UNITS/500ML NS (CATH LAB) 3000 UNIT IV (09:48)
[2024-05-07] MEDS: LIDOCAINE 1% 10ML MDV 20 ML IJ (09:49)
[2024-05-07] MEDS: 0.9 % SODIUM CHLORIDE 500 ML 25 ML IV (09:49)
[2024-05-07] MEDS: diphenhydrAMINE 50MG/ML VIAL 50 MG IV (09:49)
[2024-05-07] MEDS: VERAPAMIL 2.5MG/ML 2ML VIAL 2.5 MG IV (09:49)
[2024-05-07] MEDS: HEPARIN 1,000 UNITS/ML 10ML VIAL (CATH LAB) 10000 UNIT IV (09:49)
[2024-05-07] MEDS: NITROGLYCERIN 800MCG/8ML SYR (CATH LAB) 800 MCG IA (09:50)
[2024-05-07] MEDS: MIDAZOLAM HCL 1MG/1ML 5ML VIAL 1 MG IV (10:53)
[2024-05-07] MEDS: FENTANYL 100MCG/2ML VIAL 50 MCG IV (10:54)
[2024-05-07] MEDS: CLOPIDOGREL 300MG TABLET 600 MG PO (10:57)
--- NOTE | 2024-05-07 11:11 | SUR.PHASEII ---
assisted pt with bedpan. pt voided and tolerated well. clear yellow urine noted. ordered lunch tray per what pt would like.
[2024-05-07] MEDS: IOHEXOL-240 100ML BOTTLE 100 ML IV (11:23)
[2024-05-07] MEDS: IOPAMIDOL-370 (76%);100ML BOTTLE 90 ML IV (11:23)
[2024-05-07 15:11] LABS: CATHL Activated Clotting Time 358 SEC (74-125)
== END 2024-05-07 13:55 | disposition home or self-care (01) ==
PROVIDERS: PCP Physician Assistant; Visit Provider Internal Medicine
DX: I25.118 Atherosclerotic heart disease of native coronary artery with other forms of angina pectoris (principal); I77.1 Stricture of artery; F17.210 Nicotine dependence, cigarettes, uncomplicated; I65.23 Occlusion and stenosis of bilateral carotid arteries; E11.39 Type 2 diabetes mellitus with other diabetic ophthalmic complication; Z79.899 Other long term (current) drug therapy; Z79.84 Long term (current) use of oral hypoglycemic drugs; I70.203 Unspecified atherosclerosis of native arteries of extremities, bilateral legs; I70.1 Atherosclerosis of renal artery; I15.0 Renovascular hypertension
CPT/HCPCS: 37236; 80048; 85025; 85347; 93458; 99152; 99153; C1725; C1769; C1876; G0278; J1644; J2250; J3010; Q9966; Q9967

== ENCOUNTER 2024-10-13 09:59 | Outpatient (CLI) | payer OTHER, SELFPAY ==
[2024-10-13 11:03] LABS: Alanine Aminotransferase 27 U/L (12-78); Albumin Level 3.8 g/dl (3.5-5.0); Alkaline Phosphatase 125 U/L (38-126); Aspartate Amino Transferase 31 U/L (14-36); Bilirubin,Direct 0.4 mg/dl (0.0-0.4); Bilirubin,Indirect 0.1 mg/dL (0.0-0.9); Bilirubin,Total 0.5 mg/dl (0.2-1.3); Bilirubin,Unconjugated 0.1 mg/dL (0.0-1.1); Chol/HDL Ratio 3.3 (1-3.5); Cholesterol 162 mg/dl (140-200); HDL Cholesterol 49 mg/dl (40-60); Total Protein,Serum 6.2 g/dl (6.3-8.2); Triglycerides 227 mg/dl (30-150); VLDL Cholesterol 45 mg/dL (0-40)
[2024-10-13 11:14] LABS: Direct LDL Cholesterol 91.63 mg/dL (100-129)
== END 2024-10-13 23:59 | disposition home or self-care (01) ==
LOC: LAB 10:01
PROVIDERS: PCP Nurse Practitioner Family; Visit Provider Nurse Practitioner
DX: I50.30 Unspecified diastolic (congestive) heart failure (principal); E78.5 Hyperlipidemia, unspecified
CPT/HCPCS: 80061; 80076

== ENCOUNTER 2024-10-22 14:02 | Outpatient (CLI) | payer OTHER, SELFPAY ==
--- NOTE | 2024-10-22 14:03 | CA_ITS ---
APPROVED REPORT EXAM: Limited 2D Echocardiogram Manager Drug: Vanessa Chan RT(R) Ht: 5 ft 2 in Wt: 141lbs BSA: 1.65 BP: 182/81 mmHg Indications: HFpEF, CP, COPD, smoker, HTN, DM, hyperlipidemia, recent triple bypass 06/2024, CHF, RODRIGUEZ. Ordered as a limited echo to assess EF. 2D Dimensions LVEF (Vega's) 59.60 % F: 54 - 74 LV Volume 74.50 mL F: 46 - 106 LV Volume Index 45.2 mL/m2 F: 29 - 61 EF AP4 56.80 % EF AP2 62.3 % EF BP 59.6 % GL Strain -17.8 % M-Mode Dimensions RVDd 3.40 cm (0.9-2.6) LVDd 4.51 cm (3.5-5.7) LVDs 3.36 cm (3.5-5.7) IVSd 1.00 cm (0.6-1.1) PWd 0.79 cm (0.6-1.1) EF (Teich) 50.40% FS 25.50% EDV (Teich) 92.90 mL ESV (Teich) 46.10 mL Tricuspid Valve TR P. Velocity 268.00 cm/s RAP Estimate 10.00 mmHg RVSP 38.80 mmHg Other Information Study Quality: Adequate Conclusion This is a limited TTE to evaluate for LVEF. Limited windows were obtained. The LV is normal in size. There is increased LV wall thickness. No regional wall motion abnormalities are noted. LVEF is 55-60%. Electronically signed by : Lesia Waite MD 10/24/2024 16:40:05
== END 2024-10-22 23:59 | disposition home or self-care (01) ==
LOC: RT 14:03
PROVIDERS: PCP Nurse Practitioner Family; Visit Provider Nurse Practitioner
DX: I25.10 Atherosclerotic heart disease of native coronary artery without angina pectoris (principal); I50.30 Unspecified diastolic (congestive) heart failure
CPT/HCPCS: 93308

== ENCOUNTER 2024-11-24 10:49 | Outpatient (CLI) | payer OTHER, SELFPAY ==
--- NOTE | 2024-11-24 10:50 | CT_ITS ---
FINAL REPORT TECHNIQUE: Axial CT without contrast. This study was performed with techniques to keep radiation doses as low as reasonably achievable, (ALARA). Individualized dose reduction techniques using automated exposure control or adjustment of mA and/or kV according to the patient''s size were employed. CLINICAL HISTORY: Lung nodule follow-up FINDINGS: CT CHEST without contrast There are two, 3 mm right upper lobe nodules on image 22 of series 2. There is small, thin-walled cystic lesion in the posterior right lower lobe on image 52 measuring 7 mm. There is a 2 mm peripheral nodule in the lateral left lower lobe on image 27. Note is made of emphysema. There is evidence of old granulomatous disease. No pleural or pericardial effusion is seen . No adenopathy or mass lesion is present . IMPRESSION: Tiny lung nodules as detailed above, unlikely neoplasm. If patient is high risk for neoplasm, consider annual low-dose follow-up. Reviewed, Interpreted and Dictated by Vernon Woodard MD Transcribed by Sirena Soliman Authenticated and [facility]
== END 2024-11-24 23:59 | disposition home or self-care (01) ==
LOC: RAD 10:50
PROVIDERS: PCP Nurse Practitioner Family; Visit Provider Internal Medicine Pulmonary Disease
DX: R91.8 Other nonspecific abnormal finding of lung field (principal)
CPT/HCPCS: 71250

== ENCOUNTER 2025-01-06 11:07 | Outpatient (CLI) | payer OTHER, SELFPAY ==
[2025-01-06 20:45] LABS: Alanine Aminotransferase 21 U/L (12-78); Albumin Level 4.1 g/dl (3.5-5.0); Albumin/Globulin Ratio 1.7 (1.1-1.8); Alkaline Phosphatase 105 U/L (38-126); Anion Gap 9.2 mEq/L (5-15); Aspartate Amino Transferase 24 U/L (14-36); Bilirubin,Total 0.3 mg/dl (0.2-1.3); Blood Urea Nitrogen 17 mg/dl (7-17); Carbon Dioxide 27 mmol/L (22.0-30.0); Chloride 109 mmol/L (98-107); Chol/HDL Ratio 3.3 (1-3.5); Cholesterol 164 mg/dl (140-200); Estimated Glomerular Filt Rate 85 ml/min (>60); GFR (African American) 103 ML/MIN (>60); Globulin 2.4 g/dL (1.3-3.2); Glucose 81 mg/dl (74-100); HDL Cholesterol 49 mg/dl (40-60); Potassium 4.2 mmoL/L (3.5-5.1); Sodium 141 mmol/L (136-145); Total Protein,Serum 6.5 g/dl (6.3-8.2); Triglycerides 118 mg/dl (30-150); VLDL Cholesterol 24 mg/dL (0-40)
[2025-01-06 20:56] LABS: Direct LDL Cholesterol 84.13 mg/dL (100-129)
[2025-01-06 21:16] LABS: Thyroid Stimulating Hormone 0.91 uIU/mL (0.465-4.68)
[2025-01-06 21:24] LABS: 25-OH Vitamin D, Total 35.8 ng/mL (30-100)
== END 2025-01-06 23:59 | disposition home or self-care (01) ==
LOC: LAB.DROPOF 01-07 11:08
PROVIDERS: PCP Nurse Practitioner Family; Visit Provider Nurse Practitioner Family
DX: I10 Essential (primary) hypertension (principal); K52.9 Noninfective gastroenteritis and colitis, unspecified; E11.40 Type 2 diabetes mellitus with diabetic neuropathy, unspecified
CPT/HCPCS: 80053; 80061; 82306; 84443

== ENCOUNTER 2025-01-18 07:44 | Day surgery (SDC) | payer OTHER, SELFPAY ==
--- NOTE | 2025-01-14 13:42 | SUR.PREOP ---
1340: Calls attempted. No numbers listed are in working order.
[2025-01-18 08:32] VITALS: BMI 27.2
[2025-01-18 08:33] VITALS: BP 110/47; PULSE 66; RESP 22; TEMP 36.4; O2SAT 96
[2025-01-18] MEDS: SODIUM CHLORIDE 0.9% 10ML FLUSH SYRINGE 10 ML IV ×2 (08:40→09:25)
[2025-01-18] MEDS: TETRACAINE 0.5% OPTH SOL 15ML OP ×4 (08:43→08:53)
[2025-01-18] MEDS: CYCLOPENTOLATE 2% OPHTH SOLN 2ML BOTTLE OP ×3 (08:43→08:53)
[2025-01-18] MEDS: PHENYLEPHRINE 2.5% OPHTH SOLN 2ML OP ×3 (08:43→08:53)
[2025-01-18 08:53] LABS: POC Glucose,Bedside 91 (70-110)
[2025-01-18 09:25] VITALS: BP 124/74; PULSE 64; RESP 16; TEMP 36.6; O2SAT 97
[2025-01-18] MEDS: MIDAZOLAM 2MG/2ML VIAL 1 MG IV (09:25)
[2025-01-18 09:30] VITALS: BP 125/65; PULSE 66; RESP 16; TEMP 36.6; O2SAT 97
[2025-01-18] MEDS: TIMOLOL 0.5% OPTH SOLN 5ML OP (09:33)
[2025-01-18] MEDS: LIDOCAINE 1% PF 2ML AMPULE 2 ML IJ (09:34)
[2025-01-18] MEDS: TOBRAMYCIN/DEX OPTH SUSP 2.5ML OP (09:34)
[2025-01-18 09:35] VITALS: BP 124/57; PULSE 65; RESP 16; TEMP 36.6; O2SAT 97
[2025-01-18 09:40] VITALS: BP 122/55; PULSE 64; RESP 16; TEMP 36.6; O2SAT 97
[2025-01-18 09:47] VITALS: BP 118/71; PULSE 73; RESP 18; TEMP 36.2; O2SAT 98
--- NOTE | 2025-01-18 11:47 | HMH.PROCNOTE ---
[facility] Procedure Note Date: 01/18/25 Time: 11:47 Procedure Note:: Preoperative Diagnosis: Cataract combined NS Cortical Complex [Right] Eye Postop diagnosis: same Operation: Microscopic phacoemulsification with intraocular lens implant [Right] Eye Specimen: None Blood Loss: None The patient was examined in the office with a complaint of poor vision in the [right] eye. The patient reports that this interferes with ADLs such as reading, watching TV and/or driving or the vision is like looking through a foggy haze and is very troubling. The patient was examined and found to have a visually significant cataract with best corrected vision of [20/400] by refraction and/or glare testing. Treatment options, risks and benefits were explained and the patient elected to have cataract surgery in an attempt to improve their vision. The patient had the eye anesthetized with topical tetracaine, the eye ways prepped and draped in the usual fashion for cataract surgery. A paracentesis and a temporal keratotomy were made. 0.2cc of 1% lidocaine PF was placed into the anterior chamber. And aqueous/viscoelastic exchange was done and a 360 degree capsulorexis was performed. Through hydrodissection and delineation with BSS on a cannula was done. The lens nucleus was phecoemulsified with CDE of [9.30]. Residual cortical material was removed using automated I&A The capsular bag was deepened with viscoelastica and a PCIOL was placed in the capsular bag with good centration and stability. Residual viscoelastic was removed using automated I&A. The keratotomy incision was hydrated with BSS on a cannula. The wound were checked and found to be water tight. IOP was checked digitally and adjusted as needed so as not to be too high. 1 drop of timolol 0.5%, ofloxacin, prednisolone acetate and ketorolac was instilled and eye shield taped over the eye. The patient was taken to recovery in good condition and will be seen postoperatively.
== END 2025-01-18 09:53 | disposition home or self-care (01) ==
PROVIDERS: PCP Nurse Practitioner Family; Visit Provider Ophthalmology
PROC: (CPT 66984; principal; 2025-01-18 09:30)
DX: H25.011 Cortical age-related cataract, right eye (principal)
CPT/HCPCS: 66984; 82962; J2250; V2632

== ENCOUNTER 2025-02-01 06:59 | Day surgery (SDC) | payer OTHER, SELFPAY ==
[2025-01-28 12:32] VITALS: BMI 26.0
[2025-02-01] VITALS (7 sets, daily range): BP systolic 119–136; BP diastolic 49–63; PULSE 63–76; RESP 16–18; TEMP 36.3–36.6; O2SAT 95–99
[2025-02-01] MEDS: TETRACAINE 0.5% OPTH SOL 15ML OP ×3 (07:34→07:35)
[2025-02-01] MEDS: CYCLOPENTOLATE 2% OPHTH SOLN 2ML BOTTLE OP ×3 (07:35)
[2025-02-01] MEDS: PHENYLEPHRINE 2.5% OPHTH SOLN 2ML OP ×3 (07:36)
[2025-02-01] MEDS: MIDAZOLAM 2MG/2ML VIAL 1 MG IV (08:37)
[2025-02-01] MEDS: SODIUM CHLORIDE 0.9% 10ML FLUSH SYRINGE 10 ML IV (08:37)
[2025-02-01] MEDS: TIMOLOL 0.5% OPTH SOLN 5ML OP (08:47)
[2025-02-01] MEDS: TOBRAMYCIN/DEX OPTH SUSP 2.5ML OP (08:47)
[2025-02-01] MEDS: LIDOCAINE 1% PF 2ML AMPULE 2 ML IJ (08:47)
--- NOTE | 2025-02-01 11:37 | HMH.PROCNOTE ---
[facility] Procedure Note Date: 02/01/25 Time: 11:37 Procedure Note:: Preoperative Diagnosis: Cataract combined NS Cortical Complex [Left] Eye Postop diagnosis: same Operation: Microscopic phacoemulsification with intraocular lens implant [Left] Eye Specimen: None Blood Loss: None The patient was examined in the office with a complaint of poor vision in the [left] eye. The patient reports that this interferes with ADLs such as reading, watching TV and/or driving or the vision is like looking through a foggy haze and is very troubling. The patient was examined and found to have a visually significant cataract with best corrected vision of [20/400] by refraction and/or glare testing. Treatment options, risks and benefits were explained and the patient elected to have cataract surgery in an attempt to improve their vision. The patient had the eye anesthetized with topical tetracaine, the eye ways prepped and draped in the usual fashion for cataract surgery. A paracentesis and a temporal keratotomy were made. 0.2cc of 1% lidocaine PF was placed into the anterior chamber. And aqueous/viscoelastic exchange was done and a 360 degree capsulorexis was performed. Through hydrodissection and delineation with BSS on a cannula was done. The lens nucleus was phecoemulsified with CDE of [7.27]. Residual cortical material was removed using automated I&A The capsular bag was deepened with viscoelastica and a PCIOL was placed in the capsular bag with good centration and stability. Residual viscoelastic was removed using automated I&A. The keratotomy incision was hydrated with BSS on a cannula. The wound were checked and found to be water tight. IOP was checked digitally and adjusted as needed so as not to be too high. 1 drop of timolol 0.5%, ofloxacin, prednisolone acetate and ketorolac was instilled and eye shield taped over the eye. The patient was taken to recovery in good condition and will be seen postoperatively.
[2025-02-02 06:39] LABS: POC Glucose,Bedside 130 (70-110)
== END 2025-02-01 09:08 | disposition home or self-care (01) ==
PROVIDERS: PCP Nurse Practitioner Family; Visit Provider Ophthalmology
PROC: (CPT 66984; principal; 2025-02-01 08:30)
DX: H25.012 Cortical age-related cataract, left eye (principal)
CPT/HCPCS: 66984; 82962; J2250; V2632

== ENCOUNTER 2025-05-09 14:18 | Outpatient (CLI) | payer OTHER, SELFPAY ==
--- OUTSIDE RECORDS SUMMARY | 2025-05-09 14:21 | XMS_ITS | Encounter Summary ---
Author Organization Healthcare Address [address] [place] [address] Care Team Providers Care Software Requirements Engineer Name Role Phone Marta Schmitz Primary Care Provider [phone] Works, Alma Larson APRN, DNP Unavailable [phone] Aristeo Aviles MD Unavailable [phone] Reason for Referral * Consultation (Routine) - Closed Specialty Diagnoses / Procedures Referred By Contac t Referred To Contact Neurosurgery Diagnoses Cervical disc disorder Jaylan Rodriguez MD [address] [place] [address] Phone: tel: fax: Referral ID Status Reason Start Date Expiration Date V isits Requested Visits Authorized [id number] Closed Specialty Services Required 11/12/2021 05/14/2023 1 3 Encounter Details Date Type Department Care Team (Late st Contact Info) Description 11/12/2021 [facility] [address] [place] [address] Jaylan Rodriguez MD [address] [place] [address] Cervical disc disorder (Primary Dx) Social History Tobacco Use Types Packs/Day Years Used Date Smoking Tobacco: Never Assessed Comments Unknown Sex and Gender Information Value Date Recorded Sex Assigned at Not on file Legal Sex Female 2:53 PM EST Gender Identity Not on file Sexual Orientation Not on file documented as of this encounter Plan of Treatment Scheduled Referrals Name Type Priority Associated Diagnoses Order Schedule Ambulatory Referral to Neurosurgery Outpatient Referral Routine Cervical disc disorder Expected: 11/12/2021 (Approximate), Expires: 02/10/2022 documented as of this encounter Visit Diagnoses Diagnosis Cervical disc disorder- Primary documented in this encounter Care Teams Software Requirements Engineer Relationship Specialty Start Date End Date Marta Schmitz PA [address] [place] [address] PCP - General 12/11/21 Alma Menezes APRN, DNP [address] [facility] [address] [place] [id number] Nurse Practitioner Vascular Surgery 02/18/22 02/18/22 Aristeo Aviles MD [address] [facility] [address] [place] [address] Referring Physician Cardiology 06/29/24 documented as of this encounter
--- OUTSIDE RECORDS SUMMARY | 2025-05-09 14:21 | XMS_ITS | Clinical Summary ---
Author Organization [facility] Address [address] [place] [address] Care Team Providers Care Subsorter Name Role Phone Unavailable Primary Care Provider Unavailabl e Social History Tobacco Use Types Packs/Day Years Used Date Smoking Tobacco: Never Assessed Comments Unknown Sex and Gender Information Value Date Recorded Sex Assigned at Not on file Legal Sex Female 7:20 PM EST Gender Identity Not on file Sexual Orientation Not on file Plan of Treatment Not on file Insurance [employer]
--- OUTSIDE RECORDS SUMMARY | 2025-05-09 14:21 | XMS_ITS | Clinical Summary ---
Author Organization [facility] Address [address] [place] [address] Care Team Providers Care Microfabrication Engineer Manager Name Role Phone Marta Schmitz Primary Care Provider [phone] Aristeo Aviles MD Unavailable [phone] Allergies No known active allergies Medications leflunomide (Arava) 20 MG tablet Take 1 tablet (20 mg) by mouth 1 (one) time each day. 1 Active metFORMIN XR (Glucophage-XR) 500 MG 24 hr tablet Take 1 tablet (500 mg) by mouth 2 (two) times a day. Active aspirin 81 MG EC tablet Take 1 tablet (81 mg) by mouth 1 (one) time each day. Active glipiZIDE XL (Glucotrol XL) 10 MG 24 hr tablet Take 1 tablet (10 mg) by mouth 1 (one) time each day. Do not crush, chew, or split. Active atorvastatin (Lipitor) 80 MG tablet Take 1 tablet (80 mg total) by mouth 1 (one) time each day. 30 tablet 11 2 Active Vraylar 1.5 MG capsule Take 1 capsule (1.5 mg) by mouth 1 (one) time each day. 4 Active ARIPiprazole (Abilify) 2 MG tablet Take 1 tablet (2 mg) by mouth 1 (one) time each day. 4 Active clopidogrel (Plavix) 75 MG tablet 1 tablet (75 mg). 4 Active HYDROcodone-julianna taminophen (Woodford) 5-325 MG tablet Take 1 tablet (5 mg of hydrocodone) by mouth every 4 (four) hours if needed. 4 Active alendronate (Fosamax) 70 MG tablet Take 1 tablet (70 mg) by mouth every 7 (seven) days. 4 Active gabapentin (Neurontin) 100 MG capsule Take 1 capsule (100 mg) by mouth 3 (three) times a day. 4 Active OLANZapine (ZyPREXA) 2.5 MG tablet 4 Active SITagliptin (Januvia) 100 MG tablet Take 1 tablet (100 mg) by mouth 1 (one) time each day. Active venlafaxine XR (Effexor-XR) 75 MG 24 hr capsule Take 1 capsule (75 mg) by mouth 1 (one) time each day. 4 Active acetaminophen (Tylenol) 325 MG tablet Take 2 tablets (650 mg) by mouth every 4 (four) hours if needed for pain, headaches or fever. 100 tablet 4 Active metoprolol tartrate (Lopressor) 25 MG tablet Take 1 tablet (25 mg) by mouth 2 (two) times a day. 60 tablet 2 4 06/28/20 25 Active oxyCODONE (Roxicodone) 5 MG immediate release tablet Take 1 tablet (5 mg) by mouth every 4 (four) hours if needed for severe pain. 18 tablet 4 Active Additional Information Patient not taking.Reported on 07/22/2024 methocarbamol (Robaxin) 500 MG tablet Take 1 tablet (500 mg) by mouth 3 (three) times a day if needed for muscle spasms (post op pain) for up to 10 days. 30 tablet 4 Active Active Problems Problem Noted Date Diagnosed Date Anxiety 06/28/2024 Depression 06/28/2024 PVD (peripheral vascular disease) 06/28/2024 Chronic pain 06/28/2024 Osteoporosis 06/28/2024 Hypertriglyceridemia 06/28/2024 Chronic diastolic heart failure 06/28/2024 NYHA class 2 heart failure with preserved ejecti on fraction 06/28/2024 Pleural effusion 06/28/2024 Diabetic neuropathy 06/28/2024 Postoperative anemia 06/24/2024 Overview (06/24/2024): Expected post op Received 1uPRBCs during bypass for an Hct 18. - Will assess need to transfuse if patient becomes hemodynamically unstable. COPD (chronic obstructive pulmonary disease) Overview (06/23/2024): FEV/FVC ratio 60, evidence of air trapping on PFT - Current tobacco use (50 yrs, up to 2.5 packs/day) - scheduled maureen magaña prn and will need transition to MDI when extubated Coronary artery arteriosclerosis 06/23/2024 Overview (06/23/2024): 05/07/24 LHC: 80% Mid LAD 50-60% ostial Lcx 70% proximal and 80% mid RCA Normal LV function Now s/p CABGx3 S/P CABG x 3 06/23/2024 Overview (06/25/2024): S/p CABGx3 06/[address] Carter Patient arrived to cardiac ICU, with NTG @1.5, to maintain SBP <140. NTG titrated down to .5 by cardiac anesthesia OR team on arrival. Patient became acutely hypertensive, with SBP>210, requiring NTG bolus pushes at bedside, along with starting an Cleviprex gtt. SBP resolved to less than 140. Has intrinsic rhythm coming off bypass, not requiring pacing. VVI @ 40. Off cleviprex since 06/26. Not requiring vasoactive medications or pressors. - On Asa/statin/BB - Diurese as needed based on daily CXRs and oxygen requirements - Line de-escalation as appropriate - PRN anti-hypertensives (labetalol, hydralazine) - Multi-modal pain medications - Monitor daily chest tube output - Encourage mobilization and PT/OT as tolerated - Simethicone daily, given gastric bubble on 06/25 CXR Arthritis 02/19/2022 Overview (02/19/2022): Reported history of RA Continue Arava Ongoing management per PCP HTN (hypertension) 02/18/2022 Overview (06/23/2024): Metoprolol 25mg XL, lisinopril 10mg daily, entresto Ongoing management per PCP - Will assess need to start home medications post op as appropriate. - Currently on cleviprex and ntg gtt Claudication 02/18/2022 Tobacco use disorder 02/18/2022 Overview (06/23/2024): Complicates all aspects of care - Will assess for need post op, for smoking cessation and alternative nicotine replacement Subclavian arterial stenosis 02/18/2022 Overview (02/19/2022): CTA LUE with 80% left subclavian stenosis Left radial artery WBI 0.60 (82 mmHg) and an ulnar artery WBI 0.64 (88 mmHg). Digit waveforms and pressures absent. Right radial artery WBI 1.0 (144 mmHg) and an ulnar artery WBI of 1.0 (137 mmHg). Digit pressure is 139 mmHg. Venous duplex of the LUE was negative for DVT. Carotid artery stenosis 02/18/2022 Overview (06/23/2024): Carotid artery duplex (02/18) tortuous vessels with mild, irregular plaque bilaterally. Aspirin 81mg daily, atorvastatin 80mg daily, clopidogrel 75 mg daily. Follow up in 6 months with carotid duplex Overweight (BMI 25.0-29.9) 02/18/2022 Overview (02/18/2022): BMI 26.56 Complicates all aspects of care CAD (coronary artery disease) 12/25/2021 Overview (06/23/2024): Patient had 6 months of exertional angina and worsening fatigue. Was taken for a heart cath that showed evidence of mvCAD. 05/07/24 LHC: 80% mid-LAD, 50-60% ostial Lcx, 70% prox and 80 mid RCA, normal LVEF. Patient is now s/p CABG on 06/[address] Carter. Diabetes mellitus type II, non insulin dependent 12/25/2021 Overview (06/23/2024): HgbA1C 6.3 on 06/04/24. - Required insulin gtt intra-op, arrived to unit off drip - SSI - While inpatient, maintain blood glucose <180 Fatigue 12/25/2021 HLD (hyperlipidemia) 12/25/2021 Overview (02/19/2022): Atorvastatin 80mg daily Murmur, heart 12/25/2021 Resolved Problems Problem Noted Date Diagnosed Date Resolved Date Exertional angina 06/28/2024 06/28/2024 Hypomagnesemia 06/28/2024 06/28/2024 Transient hyperglycemia post procedure 06/28/2024 06/28/2024 Leukocytosis 06/28/2024 06/28/2024 Hypokalemia 06/28/2024 06/28/2024 Hypernatremia 06/28/2024 06/28/2024 Hypermagnesemia 06/28/2024 06/28/2024 Hypocalcemia 06/28/2024 06/28/2024 Hypophosphatemia 06/28/2024 06/28/2024 Acute respiratory failure with hypoxia 06/28/2024 06/28/2024 Volume overload 06/26/2024 06/28/2024 Overview (06/26/2024): - diuresis as appropriate - CXR PRN Thrombocytopenia 06/26/2024 06/28/2024 Respiratory insufficiency 06/24/2024 Overview (06/24/2024): Extubated successfully on 06/24 to HFNC. - Work to wean HFNC to NC, maintaining spo02>/= 92%. Hyperkalemia 06/24/2024 06/25/2024 Overview (06/24/2024): - Will monitor K+ trend and treat with hyperkalemia protocol as necessary. Hyperlactatemia 06/24/2024 06/25/2024 Overview (06/24/2024): Elevated lactate post op, now trending down. - Will continue to monitor, along with volume status Chest tube in place 06/23/2024 06/28/20 Overview (06/23/2024): Monitor output Management per CVT surgery Endotracheal tube present 06/23/2024 Overview (06/23/2024): Arrived to ICU intubated Fast track to extubation On mechanically assisted ventilation 06/23/2024 06/24/2024 Overview (06/23/2024): Fast track to extubation Abnormal EKG 12/25/2021 06/28/2024 Immunizations Immunization Administration Dates Next Due Hep A, Adult 10/31/2020 Influenza, injectable, MDCK, preservative free, quadrivalent 08/12/2023,09/23/2022 AirPR-EcoSurge COVID-19 Biv alent (Nails Cap) 12+ years (link-sucrose) 08/24/2022 Family History Medical History Relation Name Comments Diabetes type II Brother Diabetes type II Father Diabetes type II Mother Heart disease Mother Stroke Mother Diabetes type II Sister Anesthesia problems Neg Hx Malig Hyperthermia Neg Hx Relation Name Status Comments Brother Father Mother Sister Social History Tobacco Use Types Packs/Day Years Used Date Smoking Tobacco: Every Day Cigarettes 1.2 50 Smokeless Tobacco: Never Tobacco Cessation:Ready to Q uit: Not Asked; Counseling Given: Not Answered Comments:CURRENTLY 1PPD Quit 06/22/24 Alcohol Use Standard Drinks/Week Comments Never 0 (1 standard drink = 0.6 oz pur e alcohol) Humiliation, Afraid, Rape, and Kick questionnair e Answer Date Recorded Within the last year, have y ou been afraid of your partner or ex-partner? No 06/24/2024 Within the last year, have y ou been humiliated or emotionally abused in other ways by your partner or ex-partner? No Within the last year, have y ou been kicked, hit, slapped, or otherwise physically hurt by your partner or ex-partner? No 06/24/2024 Within the last year, have y ou been raped or forced to have any kind of sexual activity by your partner or ex-partner? No 06/24/2024 Social Connection and Isolation Panel Answer Date Recorded In a typical week, how many times do you talk on the phone with family, friends, or neighbors? More than three times a week 06/24/2024 How often do you get togethe r with friends or relatives? More than three times a week 06/24/2024 How often do you attend chur ch or alevism services? Never 06/24/2024 Do you belong to any clubs o r organizations such as presybeterian groups, unions, fraternal or athletic groups, or school groups? No 06/24/2024 How often do you attend meet ings of the clubs or organizations you belong to? Never 06/24/2024 Are you , , di vorced, , never , or living with a partner? 06/24/2024 AUDIT-C Answer Date Recorded Q1: How often do you have a drink containing alcohol? Never 06/24/2024 Q2: How many drinks containi ng alcohol do you have on a typical day when you are drinking? Patient does not drink Q3: How often do you have si x or more drinks on one occasion? Never 06/24/2024 [facility] - Occupational Stress Questionnaire Answer Date Recorded Do you feel stress - tense, restless, nervous, or anxious, or unable to sleep at night because your mind is troubled all the time - these days? To some extent 06/24/2024 Exercise Vital Sign Answer Date Recorde d On average, how many days pe r week do you engage in moderate to strenuous exercise (like a brisk walk)? 5 days 06/24/2024 On average, how many minutes do you engage in exercise at this level? 30 min 06/24/2024 Hunger Vital Sign Answer Date Recorded Within the past 12 months, y ou worried that your food would run out before you got the money to buy more. Never true 06/24/20 24 Within the past 12 months, t he food you bought just didn't last and you didn't have money to get more. Never true 06/24/2024 PRAPARE - Transportation Answer Date Re corded In the past 12 months, has l ack of transportation kept you from medical appointments or from getting medications? No 06/10 In the past 12 months, has l ack of transportation kept you from meetings, work, or from getting things needed for daily living? No 06/24/2024 Housing Stability Vital Sign Answer Kirill e Recorded In the last 12 months, was t here a time when you were not able to pay the mortgage or rent on time? No 06/24/2024 In the last 12 months, how many places have you lived? 1 06/24/2024 In the last 12 months, was t here a time when you did not have a steady place to sleep or slept in a penitentiary (including now)? No 06/24/2024 Utilities Answer Date Recorded In the past 12 months has th e electric, gas, oil, or water company threatened to shut off services in your home? No 06/24/2024 Comments No Sex and Gender Information Value Date Recorded Sex Assigned at Not on file Legal Sex Female 2:53 PM EST Gender Identity Not on file Sexual Orientation Not on file Last Filed Vital Signs Vital Sign Reading Time Taken Comments Blood Pressure 118/70 07/22/2024 3:15 PM EDT Pulse 67 07/09/2024 12:56 PM EDT Temperature 36.8 C (98.2 F) 06/28/2024 8:00 AM EDT Respiratory Rate 17 06/28/2024 11:00 AM EDT Oxygen Saturation 94% 07/09/2024 12:56 PM EDT Inhaled Oxygen Concentration - - Weight 62.4 kg (137 lb 9.1 oz) 07/22/2024 3:15 P M EDT Height 158.8 cm (5' 2.5 ) 06/03/2024 10:23 AM ED T Body Mass Index 24.76 06/03/2024 10:23 AM EDT Plan of Treatment Health Maintenance Due Date Last Done Comments [facility]-Bone Density Scan 1962 [facility]-Depression Screening 1962 [facility]-HIV Screening 1962 [facility]-Hepatitis C Screening 1962 [facility]-Infant/Child/Adol SDOH Screenings 1962 Diabetes: Dental Exam 1972 [facility]-DTaP,Tdap,and Td Vaccine s (1 - Tdap) 1981 [facility]-Pneumococcal Vaccine: 50 + Years (1 of 2 - PCV) 1981 [facility]-Zoster Vaccines (1 of 2) 1981 [facility]-Pap Smear 1983 [facility]-Cervical Cancer Screening 1992 [facility]-HPV/Cotest 1992 CT Colonography 2007 Colonoscopy 2007 FIT-DNA 2007 FIT 2007 FOBT 2007 Sigmoidoscopy 2007 [facility]-Colorectal Cancer Screening 2007 [facility]-Breast Cancer Screening 2012 [facility]-RSV Vaccine: 60+ Years o r (1 - Risk 60-74 years 1-dose series) 2022 [id number] Vaccine (2023- season) 2024 08/12/2023, 09/23/2022, 08/24/2022 [facility]-Diabetes: Hemoglobin A1C 12/02/2024 06/04/2024 [facility]- SDOH Screenings 12/25/2024 [facility]-Adult SDOH Screenings 12/25/2024 06/24/2024 [facility]-Lung Cancer Screening 06/07/2025 06/07/2024 [facility]-Influenza Vaccine (Seaso n Ended) 2025 08/12/2023, 09/23/2022 [facility]-Hepatitis A Vaccines Aged Out 10/31/2020 No longer eligible based on patient's age to complete this topic HPV Vaccines Aged Out No longer eligi ble based on patient's age to complete this topic [facility]-HIB Vaccines Aged Out No longer e ligible based on patient's age to complete this topic UKY-IPV Vaccines Aged Out No longer e ligible based on patient's age to complete this topic [facility]-Rotavirus Vaccines Aged Out No lo nger eligible based on patient's age to complete this topic Procedures Procedure Name Priority Date/Time Associated Diagnosis Comments CT CHEST WO IV CONTRAST Routine 06/07/2024 7:40 AM EDT Coronary artery disease involving [place]over[place] coronary artery of [place] heart without angina pectoris HEMOGLOBIN A1C Routine 06/04/2024 8:32 AM EDT Coronary artery disease involving [place] coronary artery of [place] heart without angina pectoris from Last 3 Months or Most Recently Relevant to Health Maintenance Results * CT Chest wo IV Contrast (06/07/2024 7:40 AM EDT) Anatomical Region Laterality Modality Chest Computed Tomogra phy Impressions 06/07/2024 8:24 AM EDT Atherosclerosis of the thoracic aorta and coronary arteries. Several small bilateral upper lobe nodularities which could represent infection in the acute setting. No prior studies are available to determine chronicity of these nodules. A follow-up in 3 months is recommended. CRITICAL RESULT: No. COMMUNICATION: Per this written report.. Drafted by Jersey Borges MD on 06/07/2024 8:19 AM Final report signed by Jersey Borges MD on 06/07/2024 8:24 AM Narrative 06/07/2024 8:24 AM EDT CLINICAL INDICATION: Cardiac Preop TECHNIQUE: Imaging of the chest was performed from thoracic inlet through upper abdomen, using spiral technique, without administration of IV contrast. Reformatted images in the coronal and sagittal planes were generated from the axial data set to facilitate diagnostic accuracy. Total DLP (Dose-Length Product): 481.22 mGy.cm. Please note: The reported value represents the total of one or more individual components during the CT acquisition on this date and at this time, and as such, the same value may appear in more than one CT report depending on the interpreting/reporting physicians. COMPARISON: None. FINDINGS: Chest: Lack of IV contrast limits evaluation of thoracic organs and vessels. Aorta/Vessels: The thoracic aorta and coronary arteries are diffusely atherosclerotic. No evidence of aortic aneurysm. A left subclavian artery stent Pleural/Pericardial Space: No pneumothorax. No pleural effusions. No pericardial effusion. Lymph Nodes: No lymphadenopathy within the chest. Multiple calcified bilateral mediastinal and hilar lymph nodes, likely sequela of old granulomatous disease. Lungs: Bilateral upper lobe predominant emphysema. No focal consolidation. Several small nodularities in the right upper lobe and left upper lobe, measuring up to 4 mm. Mediastinum: Tiny hiatal hernia with circumferential wall thickening of the distal esophagus, could be sequela of chronic reflux. Bones: No acute fracture within the chest. Upper Abdomen: Unremarkable. Procedure Note Jersey Borges MD - 06/07/2024 CLINICAL INDICATION: Cardiac Preop TECHNIQUE: Imaging of the chest was performed from thoracic inlet through upperabdomen, using spiral technique, without administration of IV contrast.Reformatted images in the coronal and sagittal planes were generated fromthe axial data set to facilitate diagnostic accuracy. Total DLP (Dose-Length Product): 481.22 mGy.cm. Please note: The reportedvalue represents the total of one or more individual components during theCT acquisition on this date and at this time, and as such, the same valuemay appear in more than one CT report depending on theinterpreting/reporting physicians. COMPARISON: None. FINDINGS: Chest: Lack of IV contrast limits evaluation of thoracic organs and vessels. Aorta/Vessels: The thoracic aorta and coronary arteries are diffuselyatherosclerotic. No evidence of aortic aneurysm. A left subclavian arterystent Pleural/Pericardial Space: No pneumothorax. No pleural effusions. Nopericardial effusion. Lymph Nodes: No lymphadenopathy within the chest. Multiple calcifiedbilateral mediastinal and hilar lymph nodes, likely sequela of oldgranulomatous disease. Lungs: Bilateral upper lobe predominant emphysema. No focal consolidation.Several small nodularities in the right upper lobe and left upper lobe,measuring up to 4 mm. Mediastinum: Tiny hiatal hernia with circumferential wall thickening ofthe distal esophagus, could be sequela of chronic reflux. Bones: No acute fracture within the chest. Upper Abdomen: Unremarkable. IMPRESSION: Atherosclerosis of the thoracic aorta and coronary arteries. Several small bilateral upper lobe nodularities which could representinfection in the acute setting. No prior studies are available todetermine chronicity of these nodules. A follow-up in 3 months isrecommended. CRITICAL RESULT: No. COMMUNICATION: Per this written report.. Drafted by Jersey Borges MD on 06/07/2024 8:19 AM Final report signed by Jersey Borges MD on 06/07/2024 8:24 AM us Jaylan Carter MD IM CT PROCEDURES Final Resu lt * (ABNORMAL) Hemoglobin A1c (06/04/2024 8:32 AM EDT) Hemoglobin A1c 6.3(H) <5.7 % 06/04/2024 10:06 AM EDT [facility] Blood Venous blood specimen / Unknown Venipuncture / Unknown 06/04/2024 8:32 AM EDT 06/04/2024 8:34 AM EDT Narrative [facility] - 06/04/2024 10:06 AM EDT HA1C Interpretive Data: Diagnosis of Diabetes: Diabetic > or = 6.5% Pre-diabetic 5.7 to 6.4% Non-diabetic < or = 5.6% Glycemic Targets for Type I and Type II Diabetics: Non- Adults <7.0% Adults <6.0% Children and Adolescents <7.5% Source: [place] [employer]. Standards of medical care in diabetes,2017. Diabetes Care.2017:40 (suppl 1):S1-S135. HbA1c assay performed by an ion-exchange chromatography method that is certified traceable to the DCCT. us Jaylan Carter MD LAB BLOOD ORDERABLES Final R esult [facility] [address] [place] [address] from Last 3 Months or Most Recently Relevant to Health Maintenance Insurance Advance Directives * Full Code (Latest Code Status on File) Date Activated Date Inactivated Comments 06/23/2024 4:25 PM 06/28/2024 2:08 PM Question Answer Comments Patient has decision-making capacity? Yes * Full Code Date Activated Date Inactivated Comments 02/18/2022 11:48 AM 02/19/2022 3:54 PM Question Answer Comments Patient has decision-making capacity? Yes Care Teams Microfabrication Engineer Manager Relationship Specialty Start Date End Date Marta Schmitz PA [address] [place] [address] PCP - General 12/11/21 Aristeo Aviles MD [address] [facility] [address] [place] [address] Referring Physician Cardiology 06/29/24
--- OUTSIDE RECORDS SUMMARY | 2025-05-09 14:21 | XMS_ITS | Clinical Summary ---
Author Organization [facility] Address [address] [place] [address] Phone Care Team Providers Care Personal Service Workers Name Role Phone Tootie Roy MD Unavailable [phone] Social History Tobacco Use Types Packs/Day Years Used Date Smoking Tobacco: Never Assessed Comments Unknown Sex and Gender Information Value Date Recorded Sex Assigned at Not on file Legal Sex Female 6:02 PM EDT Gender Identity Not on file Sexual Orientation Not on file Plan of Treatment Health Maintenance Due Date Last Done Comments Annual Wellness Exam 1965 Hepatitis C Screening 1980 DTaP/TDaP/Td (1 - Tdap) 1981 Cervical Cancer Screening 1983 Pap Smear 1983 HPV/Pap Cotest 1992 Breast Cancer Screening 2002 Cologuard 2007 Colon Cancer Screening 2007 Colonoscopy 2007 FIT 2007 Sigmoidoscopy 2007 Virtual Colonography 2007 Pneumococcal Vaccine 50+ (1 of 1 - PCV) 2012 Zoster (1 of 2) 2012 COVID-19 Vaccine (2023-2 5 season) 2024 Influenza Vaccine (Season Ended) 2025 Hepatitis B Vaccine Aged Out No longe r eligible based on patient's age to complete this topic Meningococcal B Vaccine Aged Out No l onger eligible based on patient's age to complete this topic Insurance ANTHEM Care Teams Personal Service Workers Relationship Specialty Start Date End Date Tootie Roy MD [address] [place] [address] Internal Medicine-Cardiovascular Disease 04/17/22
== END 2025-05-09 23:59 | disposition home or self-care (01) ==
LOC: RT 14:19
PROVIDERS: PCP Nurse Practitioner Family; Visit Provider Nurse Practitioner Family
DX: I49.3 Ventricular premature depolarization (principal); I47.10 Supraventricular tachycardia, unspecified; I25.10 Atherosclerotic heart disease of native coronary artery without angina pectoris; I10 Essential (primary) hypertension; R94.31 Abnormal electrocardiogram [ECG] [EKG]
CPT/HCPCS: 93225; 93227; 93270